=== PATIENT | female | born 1950 | race Caucasian/White ===

== ENCOUNTER → 2020-12-13 09:50 | Outpatient (BNVA) | payer MEDICARE, MEDICAID, SELFPAY | PROVIDERS: PCP Family Medicine; Visit Provider Family Medicine | DX: I10 Essential (primary) hypertension (principal); Z86.39 Personal history of other endocrine, nutritional and metabolic disease; N18.30 Chronic kidney disease, stage 3 unspecified | CPT/HCPCS: 80053; 80061; 82043; 82306; 85025 ==

== ENCOUNTER → 2021-02-04 15:00 | Outpatient (BNVA) | payer MEDICARE, MEDICAID, SELFPAY | PROVIDERS: PCP Family Medicine; Visit Provider Nurse Practitioner Family | DX: Z20.822 Contact with and (suspected) exposure to COVID-19 (principal); J06.9 Acute upper respiratory infection, unspecified | CPT/HCPCS: 87426 ==

== ENCOUNTER 2021-02-07 08:59 | Inpatient (IN) | payer MEDICARE, MEDICAID, SELFPAY ==
[2021-02-07] VITALS (19 sets, daily range): BP systolic 115–172; BP diastolic 60–94; PULSE 20–109; RESP 16–87; TEMP 36.6–38.3; O2SAT 88–92; BMI 45.1
--- NOTE | 2021-02-07 09:04 | ECG_ITS ---
[facility] Test Date: 2021-02-07 Pat Name: Modesta Medel Department: Room: Gender: Female Curatorial Assistant: : 1950 Requested By: January Perez Order Number: [id number] Reading MD: MABEL DRAKE Measurements Intervals [place] Rate: 108 P: 41 OR: 137 QRS: 44 QRSD: 65 T: 38 QT: 317 QTc: 425 Interpretive Statements SINUS TACHYCARDIA LOW QRS VOLTAGE IN PRECORDIAL LEADS [QRS DEFLECTION < 1.0 mV IN CHEST LEADS] ABNORMAL RHYTHM ECG No previous ECG available for comparison Electronically Signed On 02-07-2021 22:20:33 CDT by MABEL DRAKE [id number]
--- NOTE | 2021-02-07 09:06 | W.ED.GENADLT ---
HPI - General Adult General: Chief complaint: ER Hold Stated complaint: COVID, SOB Time Seen by Provider: 02/07/21 09:02 History of Present Illness: HPI narrative: CC: Shortness of breath, fever and generalized weakness HPI: This is a 70 yo full-code patient w/ hx of HTN, COPD BIBA for moderate respiratory distress at home x 5 days. Symptoms x 5days and patient was diagnosed with covid now progressively worsening symptoms. Denies chest pain, N/V, diaphoresis, exertional chest pain, GI or other complaints. Denies any recent surgery/immobilization/travel, or hematemesis or hx of VTE in the past. En route, rescue placed on 15L NRB after she was found to have an O2 sat of 79% on RA. Patient improved to 90 on 15L NRB. Patient is speaking full sentence. Febrile en route to 100.9. Patient received decadron 6mg en route. Onset: 5 days ago Duration: ongoing for the last 5 days Location: home Severity: moderate/severe Review of Systems Narrative: Constitutional: +subjective fever, +generalized weakness HEENT: No vision changes CV: No chest pain, no palpitations PULM: +cough, +dyspnea. GI: No abdominal pain, no N/V/D. : No dysuria MSKEL: No muscle pain SKIN: No new rashes, no lesions. NEURO: No headache, no focal weakness. HEME: No visible bruises PSYCH: Normal mood PFSH ED PFSH: Medical History (Updated 02/07/21 @ 12:27 by Guanaco Zamudio MD) Arthritis Chronic back pain CKD (chronic kidney disease), stage III COPD (chronic obstructive pulmonary disease) Essential hypertension GERD (gastroesophageal reflux disease) Hyperlipidemia MAURY (obstructive sleep apnea) Seasonal allergies Shoulder pain right Surgical History (Updated 02/07/21 @ 12:23 by Guanaco Zamudio MD) H/O: hysterectomy Partial History of back surgery History of cataract surgery Family History Other Cancer Hypertension MS (multiple sclerosis) Social History Smoking and tobacco status: never smoked Alcohol intake: never Physical Exam Narrative: EXAM NARRATIVE: Head: Atraumatic Eyes: PERRL, conjunctiva without injection ENT: Dry membrane moist NECK: Supple without lymphadenopathy LUNGS: +Coarse lung sounds b/l, no rhonchi and crackles throughout the lung rosales, speaknig full sentence CV: Sinus tachycarida ABDOMEN: Soft, nontender in all quadrants, no guarding or rebound tenderness EXTREMITY: Normal ROM SKIN: No rash or erythema NEURO: Awake and alert. No focal motor deficits. PSYCH: Normal mood and affect. Course Vital Signs: Vital signs: Vital Signs Temperature 98.5 F 02/08/21 04:00 Pulse Rate 77 02/08/21 06:00 Respiratory Rate 24 H 02/08/21 04:00 Blood Pressure 126/67 02/08/21 04:00 Pulse Oximetry 87 L 02/08/21 04:00 MDM - General Adult MDM Narrative: Medical decision making narrative: [70]yo patient w/ hx of COVID PNA, HTN, COPD BIBA for respiratory distress. On arrival patient is satting at 90% on 15L NRB with mild increased work of breathing, coarse breath sounds in lung rosales. Patient received 6mg of decadron en route. Based on history, exam and findings, presentation most consistent with moderate/severe covid PNA requiring increasing oxygen support. Low suspicion for PNA, ACS, tamponade, CHF, aortic dissection. EKG: No signs of STEMI and no evidence of Brugada?s sign, delta wave, epsilon wave, significantly prolonged QTc, or malignant arrhythmia as source of exacerbation. Workup today: ECG, CBC, BMP, Troponin, BNP, CXR, covid antigen and PCR, COVID labs, ABG Intervention: Tylenol 1gram, PO challenge, serial reassessment, oxygen, remdesivir EKG showing regular sinus tachycardia at 108. Normal axis. No ST elevations/depressions to suggest coronary occlusion. Normal CT, QRS, QT intervals. [9:00] On arrival given O2 sat, patient was placed on high flow. HDS, AAOx3 and mentating without issues. The patient is now more comfortable on high flow compared to prior without any signs of increasing fatigue. At this point, a decision was made to admit patient to stepdown covid unit for close observation. Patient agrees with plan. Disposition: Admission for serial observation Lab Data: Labs: Lab Results 02/07/21 02/07/21 02/07/21 Range/Units 09:22 09:22 09:22 WBC 7.2 (4.0-10.0) 10^3/ uL RBC 5.05 (4.1-5.3) 10^6/u L Hgb 14.2 (11.5-15.3) g/dL Hct 42.2 (37.0-47.0) % MCV 83.6 (81-99) fl MCH 28.1 (28.0-34.0) pg MCHC 33.6 (30.0-36.0) g/dL RDW 14.3 (12.1-15.1) % Plt Count 176 (130-400) 10^3/c mm MPV 10.4 (7.4-10.4) fL Neut % (Auto) 65.3 % Lymph % (Auto) 23.0 % Villalba % (Auto) 9.3 % Eos % (Auto) 0.0 % Baso % (Auto) 0.3 % Neut # (Auto) 4.72 (1.8-7.7) 10^3/u L Lymph # (Auto) 1.7 (0.8-4.8) 10^3/u L Villalba # (Auto) 0.7 (0.2-0.9) 10^3/u L Eos # (Auto) 0.0 (0.0-0.8) 10^3/u L Baso # (Auto) 0.0 (0.0-0.1) 10^3/u L Nucleated RBC % (a uto) 0 % Nucleated RBCs # 0.0 /100WBC D-Dimer 1.12 H (0-0.59) ug/mIFE U Sodium 130 L (136-145) mmol/L Potassium 3.9 (3.5-5.1) mmol/L Chloride 91 L (98-107) mmol/L Carbon Dioxide 26 (22-29) mmol/L Anion Gap 16.9 (5-19) BUN 21 (8-23) mg/dL Creatinine 1.2 H (0.5-0.9) mg/dL GFR Calculation 44.7 L (90-130) mL/min Glucose 104 (65-115) mg/dL Calculated Osmolal ity 273 L (285-295) mOsm/k g Lactic Acid Calcium 7.8 L (8.5-10.5) mg/dL Magnesium 2.2 (1.7-2.3) mg/dL Ferritin 1294 H (15-150) ng/mL Total Bilirubin 0.6 (0.15-1.2) mg/dL AST 146 H (0-32) U/L ALT 55 H (0-33) U/L Alkaline Phosphata se 166 H (35-105) IU/L Lactate Dehydrogen ase 690 H (135-214) U/L Creatine Kinase 1484 H* (26-192) U/L Troponin T Gen 5 n g/L (0-10) ng/L C-Reactive Protein 90.4 H (0.0-4.9) mg/L NT-Pro-B Natriuret Pep 366 H (0-125) pg/mL Total Protein 6.7 (6.6-8.7) g/dL Albumin 3.8 (3.5-5.2) g/dL Globulin 2.9 (1.3-4.6) g/dL Procalcitonin 0.25 (0-0.5) ng/mL Urine Color (Yellow) Urine Appearance (CLEAR) Urine pH (5-7) Ur Specific Gravit y (1.005-1.030) Urine Protein (Negative) Urine Glucose (UA) (Normal) Urine Ketones (Negative) Urine Blood (Negative) Urine Nitrate (Negative) Urine Bilirubin (Negative) Urine Urobilinogen (Negative) mg/dL Ur Leukocyte Carmella ase (Negative) Urine RBC (0-2) /hpf Urine WBC (0-5) /hpf Ur Squamous Epith Cells (0-5) /hpf Amorphous Sediment Urine Bacteria (NONE) /hpf SARS-CoV-2 Ag (Rap id) (Negative) 02/07/21 02/07/21 02/07/21 Range/Units 09:22 09:22 10:03 WBC (4.0-10.0) 10^3/ uL RBC (4.1-5.3) 10^6/u L Hgb (11.5-15.3) g/dL Hct (37.0-47.0) % MCV (81-99) fl MCH (28.0-34.0) pg MCHC (30.0-36.0) g/dL RDW (12.1-15.1) % Plt Count (130-400) 10^3/c mm MPV (7.4-10.4) fL Neut % (Auto) % Lymph % (Auto) % Villalba % (Auto) % Eos % (Auto) % Baso % (Auto) % Neut # (Auto) (1.8-7.7) 10^3/u L Lymph # (Auto) (0.8-4.8) 10^3/u L Villalba # (Auto) (0.2-0.9) 10^3/u L Eos # (Auto) (0.0-0.8) 10^3/u L Baso # (Auto) (0.0-0.1) 10^3/u L Nucleated RBC % (a uto) % Nucleated RBCs # /100WBC D-Dimer (0-0.59) ug/mIFE U Sodium (136-145) mmol/L Potassium (3.5-5.1) mmol/L Chloride (98-107) mmol/L Carbon Dioxide (22-29) mmol/L Anion Gap (5-19) BUN (8-23) mg/dL Creatinine (0.5-0.9) mg/dL GFR Calculation (90-130) mL/min Glucose (65-115) mg/dL Calculated Osmolal ity (285-295) mOsm/k g Lactic Acid Calcium (8.5-10.5) mg/dL Magnesium (1.7-2.3) mg/dL Ferritin (15-150) ng/mL Total Bilirubin (0.15-1.2) mg/dL AST (0-32) U/L ALT (0-33) U/L Alkaline Phosphata se (35-105) IU/L Lactate Dehydrogen ase (135-214) U/L Creatine Kinase (26-192) U/L Troponin T Gen 5 n g/L 16 H (0-10) ng/L C-Reactive Protein (0.0-4.9) mg/L NT-Pro-B Natriuret Pep (0-125) pg/mL Total Protein (6.6-8.7) g/dL Albumin (3.5-5.2) g/dL Globulin (1.3-4.6) g/dL Procalcitonin (0-0.5) ng/mL Urine Color Yellow (Yellow) Urine Appearance Sl hazy (CLEAR) Urine pH 5 (5-7) Ur Specific Gravit y 1.015 (1.005-1.030) Urine Protein Neg (Negative) Urine Glucose (UA) Norm (Normal) Urine Ketones Negative (Negative) Urine Blood Neg (Negative) Urine Nitrate Negative (Negative) Urine Bilirubin Neg (Negative) Urine Urobilinogen Norm (Negative) mg/dL Ur Leukocyte Carmella ase Negative (Negative) Urine RBC None (0-2) /hpf Urine WBC 0-4 H (0-5) /hpf Ur Squamous Epith Cells 5-10 H (0-5) /hpf Amorphous Sediment Not Reportable Urine Bacteria Trace (NONE) /hpf SARS-CoV-2 Ag (Rap id) Positive H (Negative) 02/07/21 Range/Units 10:10 WBC (4.0-10.0) 10^3/ uL RBC (4.1-5.3) 10^6/u L Hgb (11.5-15.3) g/dL Hct (37.0-47.0) % MCV (81-99) fl MCH (28.0-34.0) pg MCHC (30.0-36.0) g/dL RDW (12.1-15.1) % Plt Count (130-400) 10^3/c mm MPV (7.4-10.4) fL Neut % (Auto) % Lymph % (Auto) % Villalba % (Auto) % Eos % (Auto) % Baso % (Auto) % Neut # (Auto) (1.8-7.7) 10^3/u L Lymph # (Auto) (0.8-4.8) 10^3/u L Villalba # (Auto) (0.2-0.9) 10^3/u L Eos # (Auto) (0.0-0.8) 10^3/u L Baso # (Auto) (0.0-0.1) 10^3/u L Nucleated RBC % (a uto) % Nucleated RBCs # /100WBC D-Dimer (0-0.59) ug/mIFE U Sodium (136-145) mmol/L Potassium (3.5-5.1) mmol/L Chloride (98-107) mmol/L Carbon Dioxide (22-29) mmol/L Anion Gap (5-19) BUN (8-23) mg/dL Creatinine (0.5-0.9) mg/dL GFR Calculation (90-130) mL/min Glucose (65-115) mg/dL Calculated Osmolal ity (285-295) mOsm/k g Lactic Acid Cancelled Calcium (8.5-10.5) mg/dL Magnesium (1.7-2.3) mg/dL Ferritin (15-150) ng/mL Total Bilirubin (0.15-1.2) mg/dL AST (0-32) U/L ALT (0-33) U/L Alkaline Phosphata se (35-105) IU/L Lactate Dehydrogen ase (135-214) U/L Creatine Kinase (26-192) U/L Troponin T Gen 5 n g/L (0-10) ng/L C-Reactive Protein (0.0-4.9) mg/L NT-Pro-B Natriuret Pep (0-125) pg/mL Total Protein (6.6-8.7) g/dL Albumin (3.5-5.2) g/dL Globulin (1.3-4.6) g/dL Procalcitonin (0-0.5) ng/mL Urine Color (Yellow) Urine Appearance (CLEAR) Urine pH (5-7) Ur Specific Gravit y (1.005-1.030) Urine Protein (Negative) Urine Glucose (UA) (Normal) Urine Ketones (Negative) Urine Blood (Negative) Urine Nitrate (Negative) Urine Bilirubin (Negative) Urine Urobilinogen (Negative) mg/dL Ur Leukocyte Carmella ase (Negative) Urine RBC (0-2) /hpf Urine WBC (0-5) /hpf Ur Squamous Epith Cells (0-5) /hpf Amorphous Sediment Urine Bacteria (NONE) /hpf SARS-CoV-2 Ag (Rap id) (Negative) Discharge Plan Discharge Patient Disposition: Admitted As Inpatient Admit Provider: Guanaco Zamudio Coding Level of Care Code ED Pupil Personnel Services Director for Nate De La Torre
[2021-02-07] MEDS: lactated ringers 1,000 ML 150 ML IV (09:14)
[2021-02-07] MEDS: acetaminophen 500 mg Tablet 1000 MG PO (09:14)
[2021-02-07 09:30] LABS: Basophils % 0.3 %; Hematocrit 42.2 % (37.0-47.0); Hemoglobin 14.2 g/dL (11.5-15.3); Lymphocytes # 1.7 10^3/uL (0.8-4.8); Mean Corpuscular HGB Conc 33.6 g/dL (30.0-36.0); Mean Corpuscular Hemoglobin 28.1 pg (28.0-34.0); Mean Corpuscular Volume 83.6 fl (81-99); Mean Platelet Volume 10.4 fL (7.4-10.4); Monocytes # 0.7 10^3/uL (0.2-0.9); Monocytes % 9.3 %; Neutrophils # 4.72 10^3/uL (1.8-7.7); Neutrophils % 65.3 %; Nucleated Red Blood Cells % 0 %; Platelet Count 176 10^3/cmm (130-400); Red Blood Count 5.05 10^6/uL (4.1-5.3); Red Cell Distribution Width 14.3 % (12.1-15.1); White Blood Count 7.2 10^3/uL (4.0-10.0)
[2021-02-07 09:49] LABS: D Dimer 1.12 ug/mIFEU (0-0.59)
[2021-02-07 09:53] LABS: SARS Covid-2 Antigen Positive (Negative)
[2021-02-07 09:59] LABS: Troponin T (5th) Once 16 ng/L (0-10)
[2021-02-07 10:00] LABS: NT Pro B Type Natriuretic Pept 366 pg/mL (0-125); Procalcitonin 0.25 ng/mL (0-0.5)
[2021-02-07 10:12] LABS: Alanine Aminotransferase 55 U/L (0-33); Albumin Level 3.8 g/dL (3.5-5.2); Alkaline Phosphatase 166 IU/L (35-105); Anion Gap 16.9 (5-19); Aspartate Amino Transferase 146 U/L (0-32); Blood Urea Nitrogen 21 mg/dL (8-23); C Reactive Protein 90.4 mg/L (0.0-4.9); Calcium 7.8 mg/dL (8.5-10.5); Carbon Dioxide 26 mmol/L (22-29); Chloride 91 mmol/L (98-107); Globulin 2.9 g/dL (1.3-4.6); Glomerular Filtration Rate 44.7 mL/min (90-130); Glucose 104 mg/dL (65-115); Lactate Dehydrogenase 690 U/L (135-214); Magnesium 2.2 mg/dL (1.7-2.3); Osmolality Calculated 273 mOsm/kg (285-295); Potassium 3.9 mmol/L (3.5-5.1); Sodium 130 mmol/L (136-145); Total Bilirubin 0.6 mg/dL (0.15-1.2); Total Protein 6.7 g/dL (6.6-8.7)
[2021-02-07 10:17] LABS: Creatine Phosphokinase 1484 U/L (26-192)
[2021-02-07 10:25] LABS: Ferritin 1294 ng/mL (15-150)
[2021-02-07 10:42] LABS: Bilirubin Urine Neg (Negative); Blood Urine Neg (Negative); Glucose Urine UA Norm (Normal); Ketones Urine Negative (Negative); Leukocyte Esterase Urine Negative (Negative); Nitrate Urine Negative (Negative); Protein Urine Neg (Negative); Specific Gravity, Urine 1.015 (1.005-1.030); Urine Appearance SL Hazy (CLEAR); Urine Color Yellow (Yellow); Urobilinogen Urine Norm (Negative); WBC Urine 0-4 /hpf (0-5); pH Urine 5 (5-7)
[2021-02-07 10:43] LABS: Add Urine Culture? No; Bacteria Urine TRACE /hpf
[2021-02-07] MEDS: lactated ringers 1,000 ML 999 ML IV (10:49)
[2021-02-07 11:12] LABS: Lactic Sepsis W/Reflex 1.6 mmol/L (0.5-2.2)
--- NOTE | 2021-02-07 11:21 | PC.PHAR ---
pt states she takes care of her own medications-pt states she hasnt been taking anything otc -pt states she only takes the medications entered
[2021-02-07] MEDS: dexamethasone 10 mg/mL INJ 6 MG IVP (11:30)
--- NOTE | 2021-02-07 12:20 | P.HP_ITS ---
Providers/Chief Complaint Primary Care Provider: Jonna Emery DO Chief Complaint: COVID, SOB History of Present Illness Modesta Medel is a 70 year old female who presented to the emergency department not feeling well for quite some time. She really cannot pin this down but did get a Covid test, a rapid on February 04 that was positive. She states she has had anorexia, fever, chills, shortness of breath, persistent cough. Symptoms culminated today where she had to come to the emergency department secondary to severe shortness of breath. She has had no chest discomfort. No vomiting. A family member has had Covid recently. Review of Systems General: Reports: 10 or more systems reviewed and unremarkable except in HPI and below Const: Reports: fever(s), chills, body aches and fatigue Eyes: Denies: change in vision ENMT: Denies: throat pain Card: Denies: chest pain Resp: Reports: dyspnea GI: Reports: nausea; Denies: abdominal pain or vomiting : Denies: flank pain Musc: Denies: neck pain Skin/Breast: Denies: rash Neuro: Denies: headache(s) Psych: Denies: anxiety Endo: Denies: polyuria Nils/Lymph: Denies: easy bruising All/Imm: Denies: urticaria Medications/Allergies Home Medications Medication Instructions Recorded Confirmed Last Taken Type fluticasone propionate 50 1 spray INTRANASAL BID 90 Days #48 12/12/20 02/07/21 02/06/21 Rx mcg/actuation nasal g spray,suspension Norvasc 10 mg PO QAM 02/07/21 02/07/21 02/06/21 History Singulair 10 mg PO BEDTIME 02/07/21 02/07/21 02/06/21 History albuterol sulfate 2 puff INHALATION Q6H PRN 02/07/21 02/07/21 Unknown History atorvastatin 20 mg PO BEDTIME 02/07/21 02/07/21 02/06/21 History famotidine 20 mg PO QAM 02/07/21 02/07/21 02/06/21 History losartan 100 mg PO QAM 02/07/21 02/07/21 02/06/21 History triamcinolone acetonide 1 applic TOPICAL DAILY PRN 02/07/21 02/07/21 Unknown History Allergies Allergy/AdvReac Type Severity Reaction Status Date / Time carbamazepine [From Tegretol] AdvReac Mild twitches Verified 02/07/21 11:22 Sulfa (Sulfonamide AdvReac Mild made sore Verified 02/07/21 11:22 Antibiotics) worse PFSH Acute PFSH: Medical History (Updated 02/07/21 @ 12:27 by Guanaco Zamudio MD) Arthritis Chronic back pain CKD (chronic kidney disease), stage III COPD (chronic obstructive pulmonary disease) Essential hypertension GERD (gastroesophageal reflux disease) Hyperlipidemia MAURY (obstructive sleep apnea) Seasonal allergies Shoulder pain right Surgical History (Updated 02/07/21 @ 12:23 by Guanaco Zamudio MD) H/O: hysterectomy Partial History of back surgery History of cataract surgery Family History Other Cancer Hypertension MS (multiple sclerosis) Social History Smoking and tobacco status: never smoked Alcohol intake: never Vitals/I&O/Wt Last Vital Signs Temp 100.9 F H 02/07/21 08:59 Pulse 94 02/07/21 11:09 Resp 22 H 02/07/21 11:09 BP 115/60 02/07/21 10:05 Pulse Ox 92 02/07/21 11:09 Weight last 48 hrs Weight 127.006 kg Physical Exam Narrative: EXAM NARRATIVE: General exam is an obese-female, with mild respiratory distress on high flow oxygen with an FiO2 of 85%. HEENT: Atraumatic normocephalic. Pupils equally round. Oropharynx clear. Neck is supple no lymphadenopathy or thyromegaly Cardiovascular regular rate and rhythm, no murmur Lungs coarse breath sounds bilaterally Abdomen is soft, obese. No obvious organomegaly demonstrates Bajwa Extremities no cyanosis clubbing or edema, cap refill brisk Skin no rash Neuro no obvious focal deficits Urinary Catheter Management^: Bajwa: Cath Placed During This Visit: yes Urinary Catheter Date of Insertion: 02/07/21 Urinary Catheter Time of Insertion: 10:07 Data : 02/07/21 09:22 02/07/21 09:22 Other data: Urinalysis negative Rapid Covid positive CK 1484 Troponin XVI CRP 90 BNP 366 LFTs slightly elevated with AST of 146, ALT 55, alk phos 166 LDH 690 Ferritin 1294 Calcium 7.8 Dimer 1.12 EKG demonstrates sinus tachycardia rate of 108, no acute changes Chest x-ray is pending A&P Assessment and plan (1) Pneumonia due to COVID-19 virus: Admission to Covid unit High risk for decompensation. Follow closely Remdesivir Dexamethasone 6 mg IV every 24 hours Dose of Actemra today Pulmonary toilet Incentive spirometry High flow oxygen, wean as tolerated Procalcitonin level is normal. No evidence for bacterial pneumonia. Rocephin and azithromycin empirically Check MRSA PCR, bacterial antigens Blood cultures Await chest x-ray Status: Acute (2) Acute and chronic respiratory failure with hypoxia: Secondary to COVID-19 pneumonia Status: Acute (3) COPD (chronic obstructive pulmonary disease): No evidence of exacerbation Status: Chronic (4) Rhabdomyolysis: Not a candidate for significant fluids Discontinue statin Check CK tomorrow Status: Acute Additional A&P Information Hypertension. Continue home medications Multiple other medical problems as outlined in past medical history Full code. She would want intubated should she worsen Lovenox for DVT prophylaxis Attestations Medical Necessity Statement*: Need greater than 2 midnight stay for evaluation and treatment of severe COVID-19 disease and respiratory failure consistent with pneumonia Time Spent in Patient Care: Greater than 35 minutes Coding Level of Care Code Acute Utility Locator for elsa Fwmario Diagnoses Pneumonia due to COVID-19 virus U07.1; J12.82 Acute and chronic respiratory failure with hypoxia J96.21 COPD (chronic obstructive pulmonary disease) J44.9 Rhabdomyolysis M62.82
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
[2021-02-07] MEDS: remdesivir 200 MG in sodium chloride 0.9% (100 ml) 100 ML 100 MG IV (15:20)
--- NOTE | 2021-02-07 16:27 | PC.NURSE ---
patient to room at this time from ED. A/Ox3. rr even and unlabored. respiratory to bedside. patient call light in reach.
[2021-02-07] MEDS: enoxaparin 40 mg/0.4 mL Syringe SUBCUT (17:02)
[2021-02-07] MEDS: fluticasone nasal spray 16gm Btl 1 SPRAY INTRANASAL (17:03)
--- NOTE | 2021-02-07 17:17 | PC.RESP ---
RT Shift Note Frequent safety and respiratory rounds continue. Orders completed as indicated. Patient monitored pre and post treatments throughout shift. Patient tolerated treatments appropriately. Condition did not change. Patient and/or loan servicing representative educated on respiratory treatment and medications. Patient and/or loan servicing representative verbalized understanding. Will continue to monitor patient progress.
[2021-02-07] MEDS: cefTRIAXone 1,000 MG in sodium chloride 0.9% (plus) 50 ML 100 MG IV (20:34)
[2021-02-07] MEDS: azithromycin 500 MG in sodium chloride 0.9% 250 ML 250 MG IV (20:35)
[2021-02-07] MEDS: montelukast sodium 10 mg Tablet PO (20:35)
[2021-02-07] MEDS: ipratropium-albuterol 3 mL Neb INHALATION (21:20)
[2021-02-07] MEDS: FUROsemide 10 mg/mL SDV 2mL 20 MG IVP (22:19)
[2021-02-07] MEDS: ALPRAZolam 0.5 mg Tablet PO (23:38)
[2021-02-08] VITALS (120 sets, daily range): BP systolic 88–153; BP diastolic 42–70; PULSE 59–98; RESP 16–31; TEMP 36.6–36.9; O2SAT 85–100
--- NOTE | 2021-02-08 | US_ITS ---
WS: [id number] ULTRASOUND SOFT TISSUES RIGHT anterior abdominal wall. HISTORY: ABD PAIN AND LUMP COMPARISON: None available. TECHNIQUE: 2-D and color Doppler imaging is submitted. Hypoechoic elongated mass with variable echogenicity along the RIGHT anterior abdominal wall correspo nds to the palpable abnormality. This is an ovoid mass extending over a length of 14 cm x 7.9 x 4.1 c m. No increased vascularity. This is most likely an abdominal wall hematoma. Mild posterior displacem ent and mass effect upon the musculature. Margins are marked with a permanent marker in order to eval uate for increase in size of the hematoma. This is asymmetric to the LEFT abdominal wall. US/US soft tissue/extremity [id number] IMPRESSION: Large RIGHT lateral abdominal wall hematoma measures 14.0 x 7.9 x 4.1 cm. Dunia ns of the hematoma are marked in order to evaluate clinically for increase in s ize.
[2021-02-08] MEDS: ipratropium-albuterol 3 mL Neb INHALATION ×4 (02:35→20:44)
--- NOTE | 2021-02-08 03:06 | XRR_ITS ---
PROCEDURE INFORMATION: Exam: XR Chest Exam date and time: 02/08/2021 3:06 AM Age: 70 years old Clinical indication: Chest wall pain; Patient HX: Sudden onset of severe RT anterior chest wall/ruq pain. Covid +. ; Additional info: Acute ruq pain TECHNIQUE: Imaging protocol: XR of the chest. Views: 1 view. COMPARISON: CR XR chest 1V portable [id number] 02/07/2021 12:34 PM FINDINGS: Lungs: Increased moderate to severe right upper lobe pneumonia with mild right basilar pneumonia. Continued moderate to severe left-sided pneumonia. Pleural spaces: Unremarkable. No pleural effusion. No pneumothorax. Heart/Mediastinum: Unremarkable. No cardiomegaly. Bones/joints: Mild dextroscoliosis. XR/XR chest 1V portable [id number] IMPRESSION: 1. Increased moderate to severe right upper lobe pneumonia with mild right basilar pneumonia. 2. Continued moderate to severe left-sided pneumonia.
[2021-02-08] MEDS: HYDROmorphone 1 mg/mL INJ 1 mL IVP (03:14)
--- NOTE | 2021-02-08 04:15 | PC.NURSE ---
Addendum entered by Yenifer Jett RN 02/08/21 08:13: Chest xray was negative for any signs of perforation. Abdominal ultrasound was performed and patient was then transfered to ICU bed 6 due to being maxed out on BIPAP and decreasing oxygen saturation. Patient continued to have increasing pain in the RUQ. Report was given to ICU day shift nurse. Original Note: Shift Note Frequent safety and comfort rounds continue. Pt began to report acute sharp pain in RUQ. RUQ was firm and tender to touch. Dr. Gonzalez notified and a stat chest xray, pain medication, and routine ultrasound were ordered. Orders and/or nursing care completed as indicated. Patient monitored for response to intervention and treatment(s). Education provided includes dilaudid. Patient and/or sales training representative needs reinforcement. Will continue to monitor.
--- NOTE | 2021-02-08 05:06 | US_ITS ---
WS: [id number] RIGHT UPPER QUADRANT ULTRASOUND HISTORY: US Right upper quadrant for cholecystitis COMPARISON: None available. Liver: 16.5 cm in length. Mildly enlarged liver. Moderate coarse echotexture from hepatic steatosis. Due to the attenuation the entire liver is not very well visualized. Cannot exclude masses. No duct d ilatation. Gallbladder: Normally distended gallbladder with no stones or wall thickening. CBD: 0.4 cm Pancreas: Not well visualized. Right kidney: 10.1 cm in length. Normal size and echogenicity. No hydronephrosis or mass. Aorta and IVC: Not visualized. No ascites. US/US abdomen limited [id number] IMPRESSION: 1. Technically very limited evaluation of the RIGHT upper quadrant. 2. No abnormality noted within the gallbladder. 3. Moderate hepatic steatosis and mildly enlarged liver.
[2021-02-08] MEDS: morphine 4 mg/mL SDV 1 mL 2 MG IVP (05:29)
[2021-02-08] MEDS: FUROsemide 10 mg/mL SDV 4mL 40 MG IVP (08:03)
[2021-02-08] MEDS: dexamethasone 10 mg/mL INJ 6 MG IVP (08:03)
[2021-02-08] MEDS: dexmedetomidine 400 MCG in sodium chloride 0.9% (100 ml) 100 ML IV ×2 (08:13→11:27)
[2021-02-08 08:28] LABS: Alanine Aminotransferase 48 U/L (0-33); Albumin Level 3.1 g/dL (3.5-5.2); Alkaline Phosphatase 135 IU/L (35-105); Anion Gap 17.2 (5-19); Aspartate Amino Transferase 103 U/L (0-32); Blood Urea Nitrogen 29 mg/dL (8-23); C Reactive Protein 65.9 mg/L (0.0-4.9); Calcium 7.8 mg/dL (8.5-10.5); Carbon Dioxide 25 mmol/L (22-29); Chloride 96 mmol/L (98-107); Globulin 2.9 g/dL (1.3-4.6); Glomerular Filtration Rate 49.4 mL/min (90-130); Glucose 127 mg/dL (65-115); Magnesium 2.2 mg/dL (1.7-2.3); Osmolality Calculated 285 mOsm/kg (285-295); Potassium 4.2 mmol/L (3.5-5.1); Sodium 134 mmol/L (136-145); Total Bilirubin 0.5 mg/dL (0.15-1.2)
[2021-02-08 08:33] LABS: Creatine Phosphokinase 649 U/L (26-192)
--- NOTE | 2021-02-08 08:36 | XR_ITS ---
WS: [id number] PORTABLE CHEST HISTORY: Post-intubation COMPARISON: 02/08/2021 and 02/07/2021 Nasogastric and endotracheal tube have been placed since the prior study and are in good position. RI GHT central line with tip in the distal SVC. Continued bilateral pulmonary opacifications, opacifications involve all lobes. No pneumothorax or lo bar collapse. High density foreign body objects projects over the LEFT lower thorax. Cardiac size: Normal. Mediastinum/Aorta: Normal mediastinum. No osseous abnormality seen. XR/XR chest 1V portable [id number] IMPRESSION: 1. Satisfactory placement of the nasogastric and endotracheal tubes. 2. RIGHT central line in good position. 3. Continued, unchanged bilateral pulmonary opacifications from Covid 19 pneum onia.
[2021-02-08 08:46] LABS: Basophils % 0.2 %; Hematocrit 39.2 % (37.0-47.0); Lymphocytes # 0.9 10^3/uL (0.8-4.8); Lymphocytes % 14.8 %; Mean Corpuscular HGB Conc 33.2 g/dL (30.0-36.0); Mean Corpuscular Hemoglobin 28.3 pg (28.0-34.0); Mean Corpuscular Volume 85.2 fl (81-99); Mean Platelet Volume 11.5 fL (7.4-10.4); Monocytes # 0.6 10^3/uL (0.2-0.9); Monocytes % 10.8 %; Neutrophils % 72.3 %; Nucleated Red Blood Cells % 0 %; Platelet Count 236 10^3/cmm (130-400); Red Cell Distribution Width 14.3 % (12.1-15.1); White Blood Count 5.8 10^3/uL (4.0-10.0)
[2021-02-08] MEDS: fentaNYL 50 mcg/mL INJ 2mL IVP (08:50)
[2021-02-08] MEDS: midazolam 1 mg/mL INJ 2 mL 4 MG IVP (08:51)
[2021-02-08 08:54] LABS: ABG PCO2 44.4 mmHg (35-45); Arterial Blood Gas Hematocrit 41.6 % (37-47); Base Excess ABG 2.5 mmol/L (-2.0-2.0); Blood Gas Allen Test Pos; Blood Gas Operator Identificat BD; Blood Gas Sample Site Brachial, right; Blood Gas Sample Type Arterial; Carboxyhemoglobin 0.7 %THgb (0.4-20.1); HCO3 ABG 27.7 mmol/L (22-26); HGB O2 Sat 85.8 % (95-100); Ionized Calcium Level - ABG 1.1 mmol/L (1.1-1.4); Methemoglobin 0.8 % (0.4-1.5); Oxygen Device BIPAP; Oxygen Saturation ABG 87.1; PO2 ABG 52.6 mmHg (80.0-100.0); Potassium Level - ABG 4.1 mmol/L (3.5-5.0); Total Hemoglobin 13.6 g/dL (12-16)
[2021-02-08] MEDS: rocuronium 10 mg/mL INJ 5mL 100 MG IV (08:58)
[2021-02-08 09:03] LABS: D Dimer 0.85 ug/mIFEU (0-0.59)
[2021-02-08] MEDS: propofol 1,000 MG/100 ML INJ 19.05 MG IV ×3 (10:00→19:46)
--- NOTE | 2021-02-08 10:20 | P.PCN_ITS ---
Procedure/Consent Time out: Time Out Performed: Yes Consent: Consent for Procedure: Emergency procedure Procedure Narrative: Procedure time: 9:30 AM right Procedure: Central venous access placement Indication:Vasopressors infusion Machine Operator Replanter(s): Ozzy Marquez MD Consent: Emergent Time out called. [place] precautions applied. Site: Right internal Jugular Catheter: 7 Fr, 20 cm, Triple Lumen Sutured at: 17 cm Anesthesia: 5 cc 1% lidocaine without epinephrine Description: Area prepped with chlorhexidine and draped in a universal sterile manner. The vessel anatomy and patency was examined by ultrasound probe which was covered with sterile probe cover. The needle was inserted into the vessel under ultrasound guidance, after venous blood aspirated the guidewire was inserted through the needle and kept in situ while the needle was removed. Placement of guidewire in the vein and in relation to the adjacent artery was verified by ultrasound. Catheter was then advanced over the guidewire after dilation and guidewire successfully removed.The catheter was sutured to the skin and sterile dressing with chlorhexidine patch placed. Number of attempts:1 Dilator applied: 1 number of Dilations: 1 Placement Verified by: Blood draw from all ports and Ultrasound exam and Chest Xray EBL: 5-10 cc Complications: None Ultrasound guidance used:yes Acute Procedures Epistaxis Control: Time out performed: Yes
--- NOTE | 2021-02-08 10:20 | PM.CONSULT ---
Providers/Reason For Consult Consulting Physician/Specialty*: Ozzy Marquez MD / Pulmonary Critical Care Reason for Consult*: Acute hypoxic respiratory failure secondary to ARDS due to COVID-19 pneumonia Requesting Physician: Guanaco Zamudio MD Attending Physician: Guanaco Zamudio MD Primary Care Provider: Jonna Emery DO History of Present Illness History of Present Illness Modesta Medel is a 70 year old female with past medical history COPD, hypertension, CKD stage III, GERD, hyperlipidemia, obstructive sleep apnea, morbid obesity BMI 45, chronic back pain presented to ED on 02/07/2021 with chief complaint of not feeling well and worsening shortness of breath over the last 5 days.-a rapid Covid test on 02/04/2021 was positive. In the ER she was placed on 15 L nonrebreather mask and saturations were up to 90%-gradually she declined and was requiring 100% FiO2 on BiPAP and saturating 88 to 90%. She was admitted to ICU for acute hypoxemic respiratory failure secondary to ARDS due to COVID-19 pneumonia. Pulmonary critical care consulted for increasing FiO2 requirement and patient still saturating 90% on FiO2 100%. Patient appears anxious and started on Precedex drip. ABG obtained today morning 7.4 0/44/52/27/87% on BiPAP FiO2 100%. Decision was made to intubate patient for respiratory support through mechanical ventilator. She was placed on sedation to comply with ventilator. There was a concern for right upper quadrant swelling and abdominal tenderness and her ultrasound examination today morning was limited and did not show any acute pathology. The outside plant technician is to come back again and do complete abdomen ultrasound examination and after ruling out any acute abdominal pathology-plan is to paralyze and prone her. Review of Systems General: Reports: ROS unobtainable due to medical condition and ROS unobtainable due to mental status Meds/Allergies Home Medications and Allergies Home Medications Medication Instructions Recorded Confirmed Last Taken Type fluticasone propionate 50 1 spray INTRANASAL BID 90 Days #48 12/12/20 02/07/21 02/06/21 Rx mcg/actuation nasal g spray,suspension Norvasc 10 mg PO QAM 02/07/21 02/07/21 02/06/21 History Singulair 10 mg PO BEDTIME 02/07/21 02/07/21 02/06/21 History albuterol sulfate 2 puff INHALATION Q6H PRN 02/07/21 02/07/21 Unknown History atorvastatin 20 mg PO BEDTIME 02/07/21 02/07/21 02/06/21 History famotidine 20 mg PO QAM 02/07/21 02/07/21 02/06/21 History losartan 100 mg PO QAM 02/07/21 02/07/21 02/06/21 History triamcinolone acetonide 1 applic TOPICAL DAILY PRN 02/07/21 02/07/21 Unknown History Allergies Allergy/AdvReac Type Severity Reaction Status Date / Time carbamazepine [From Tegretol] AdvReac Mild twitches Verified 02/07/21 11:22 Sulfa (Sulfonamide AdvReac Mild made sore Verified 02/07/21 11:22 Antibiotics) worse Current Medications Current Medications Generic Name Dose Route Start Last Admin Trade Name Freq PRN Reason Stop Dose Admin Albuterol/Ipratropium 3 ml 02/07/21 15:10 02/08/21 02:35 Ipratropium-Albuterol 3 Ml Neb INHALATION 3 ml Q6H RAUL Administration Dexamethasone 6 mg 02/08/21 08:00 02/08/21 08:03 Dexamethasone 10 Mg/Ml Inj IVP 6 mg Q24H RAUL Administration Fluticasone Propionate 1 spray 02/07/21 18:00 02/07/21 17:03 Fluticasone Nasal [place] 16gm Btl INTRANASAL 1 spray BID RAUL Administration Ceftriaxone Sodium 1,000 mg/ 50 mls @ 100 mls/hr 02/07/21 15:10 02/07/21 21:48 Sodium Chloride IV Infused Q24H RAUL Infusion Protocol Azithromycin 500 mg/ Sodium 250 mls @ 250 mls/hr 02/07/21 15:10 02/07/21 21:49 Chloride IV 02/09/21 22:00 Infused Q24H RAUL Infusion Protocol Dexmedetomidine HCl 400 mcg/ 104 mls @ 0 mls/hr 02/08/21 07:15 02/08/21 08:13 Sodium Chloride IV 0.1 mcg/kg/hr .Q0M RAUL 3.3 mls/hr Administration Protocol Per Protocol Montelukast Sodium 10 mg 02/07/21 21:00 02/07/21 20:35 Montelukast Sodium 10 Mg Tablet PO 10 mg BEDTIME RAUL Administration Morphine Sulfate 2 mg 02/08/21 05:09 02/08/21 05:29 Morphine 4 Mg/Ml Sdv 1 Ml IVP 2 mg Q4H PRN Administration SEVERE PAIN PFSH Acute PFSH: Medical History (Updated 02/09/21 @ 09:08 by Ozzy Marquez MD) Arthritis Chronic back pain CKD (chronic kidney disease), stage III COPD (chronic obstructive pulmonary disease) Essential hypertension GERD (gastroesophageal reflux disease) Hyperlipidemia MAURY (obstructive sleep apnea) Seasonal allergies Shoulder pain right Surgical History H/O: hysterectomy Partial History of back surgery History of cataract surgery Family History Other Cancer Hypertension MS (multiple sclerosis) Social History Smoking and tobacco status: never smoked Alcohol intake: never Vitals/I&O/Wt Last Vital Signs Temp 98.5 F 02/08/21 04:00 Pulse 77 02/08/21 06:00 Resp 24 H 02/08/21 04:00 BP 126/67 02/08/21 04:00 Pulse Ox 87 L 02/08/21 04:00 02/07/21 02/08/21 02/08/21 22:59 06:59 14:59 Intake Total 810 / 1525 Output Total 1000 / 1000 800 / 1800 Balance -190 / 525 -800 / -275 Weight last 48 hrs Weight 280 lb Weight 280 lb Physical Exam Narrative: EXAM NARRATIVE: PHYSICAL EXAM: General: Earlier sitting in bed and on BiPAP and anxious, later intubated and sedated HEENT:NCAT, PERRLA, EOMI Neck: Supple Lungs: Bilateral diffuse coarse crackles Heart: s1/s2, RRR Abd: soft, NT, ND, BS + Normoactive Extremities: No edema 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 SKIN: no rash LDA: # CVC: Right internal jugular 02/08/2021 # Bajwa: 02/07/2021 #Intubated: 02/08/2021 Urinary Catheter Management^: Bajwa: Cath Placed During This Visit: yes Reason for Continuing Indwelling Catheter: Accurate Measurement of Urinary Output in Critically Ill Patients Urinary Catheter Date of Insertion: 02/07/21 Urinary Catheter Time of Insertion: 10:07 Data Labs: Other Labs: Laboratory Results WBC 5.8 10^3/uL (4.0- 10.0) 02/08/21 06:50 RBC 4.60 10^6/uL (4.1 -5.3) 02/08/21 06:50 Hgb 12.5 g/dL (11.5-1 5.3) 02/08/21 13:54 Hct 38.0 % (37.0-47.0 ) 02/08/21 13:54 MCV 85.2 fl (81-99) 02/08/21 06:50 MCH 28.3 pg (28.0-34. 0) 02/08/21 06:50 MCHC 33.2 g/dL (30.0-3 6.0) 02/08/21 06:50 RDW 14.3 % (12.1-15.1 ) 02/08/21 06:50 Plt Count 236 10^3/cmm (130 -400) D 02/08/21 06:50 MPV 11.5 fL (7.4-10.4 ) H 02/08/21 06:50 Neut % (Auto) 72.3 % 02/08/21 06:50 Lymph % (Auto) 14.8 % 02/08/21 06:50 [place] % (Auto) 10.8 % 02/08/21 06:50 Eos % (Auto) 0.0 % 02/08/21 06:50 Baso % (Auto) 0.2 % 02/08/21 06:50 Neut # (Auto) 4.20 10^3/uL (1.8 -7.7) 02/08/21 06:50 Lymph # (Auto) 0.9 10^3/uL (0.8- 4.8) 02/08/21 06:50 [place] # (Auto) 0.6 10^3/uL (0.2- 0.9) 02/08/21 06:50 Eos # (Auto) 0.0 10^3/uL (0.0- 0.8) 02/08/21 06:50 Baso # (Auto) 0.0 10^3/uL (0.0- 0.1) 02/08/21 06:50 Nucleated RBC % (a uto) 0 % 02/08/21 06:50 Nucleated RBCs # 0.0 /100WBC 02/08/21 06:50 D-Dimer 0.85 ug/mIFEU (0- 0.59) H 02/08/21 06:50 Specimen Type Arterial 02/08/21 10:50 Sample Site Brachial, right 02/08/21 10:50 ABG pH 7.37 (7.35-7.45) 02/08/21 10:50 ABG pCO2 44.9 mmHg (35-45) 02/08/21 10:50 ABG pO2 67.3 mmHg (80.0-1 00.0) L 02/08/21 10:50 ABG HCO3 26.2 mmol/L (22-2 6) H 02/08/21 10:50 ABG O2 Saturation 87.1 02/08/21 08:42 ABG Base Excess 0.6 mmol/L (-2.0- 2.0) 02/08/21 10:50 Christian Test Pos 02/08/21 10:50 A-a O2 Gradient 79.0 mmHg (5-10) H 02/08/21 08:42 Hematocrit 40.3 % (37-47) 02/08/21 10:50 Hgb O2 Saturation 85.8 % (95-100) L 02/08/21 08:42 Carboxyhemoglobin 0.7 %THgb (0.4-20 .1) 02/08/21 08:42 Methemoglobin 0.8 % (0.4-1.5) 02/08/21 08:42 Total Hemoglobin 13.6 g/dL (12-16) 02/08/21 08:42 Sodium 136.0 mmol/L (131 -143) 02/08/21 08:42 Potassium 4.1 mmol/L (3.5-5 .0) 02/08/21 08:42 Glucose 131.0 mg/dL (70-1 15) H 02/08/21 08:42 Ionized Calcium 1.1 mmol/L (1.1-1 .4) 02/08/21 08:42 O2 Delivery Device Vent 02/08/21 10:50 FiO2 100.0 % 02/08/21 10:50 Tidal Volume 0.37 02/08/21 10:50 PEEP 12.0 cmH20 02/08/21 10:50 Chicken Buyer ID Bd 02/08/21 10:50 Sodium 134 mmol/L (136-1 45) L 02/08/21 06:50 Potassium 4.2 mmol/L (3.5-5 .1) 02/08/21 06:50 Chloride 96 mmol/L (98-107 ) L 02/08/21 06:50 Carbon Dioxide 25 mmol/L (22-29) 02/08/21 06:50 Anion Gap 17.2 (5-19) 02/08/21 06:50 BUN 29 mg/dL (8-23) H 02/08/21 06:50 Creatinine 1.1 mg/dL (0.5-0. 9) H 02/08/21 06:50 GFR Calculation 49.4 mL/min (90-1 30) L 02/08/21 06:50 Glucose 127 mg/dL (65-115 ) H 02/08/21 06:50 Calculated Osmolal ity 285 mOsm/kg (285- 295) 02/08/21 06:50 Lactic Acid 1.6 mmol/L (0.5-2 .2) 02/07/21 10:50 Calcium 7.8 mg/dL (8.5-10 .5) L 02/08/21 06:50 Magnesium 2.2 mg/dL (1.7-2. 3) 02/08/21 06:50 Ferritin 1294 ng/mL (15-15 0) H 02/07/21 09:22 Total Bilirubin 0.5 mg/dL (0.15-1 .2) 02/08/21 06:50 AST 103 U/L (0-32) H 02/08/21 06:50 ALT 48 U/L (0-33) H 02/08/21 06:50 Alkaline Phosphata se 135 IU/L (35-105) H 02/08/21 06:50 Lactate Dehydrogen ase 690 U/L (135-214) H 02/07/21 09:22 Creatine Kinase 649 U/L (26-192) H* 02/08/21 06:50 Troponin T Gen 5 n g/L 16 ng/L (0-10) H 02/07/21 09:22 C-Reactive Protein 65.9 mg/L (0.0-4. 9) H 02/08/21 06:50 NT-Pro-B Natriuret Pep 366 pg/mL (0-125) H 02/07/21 09:22 Total Protein 6.0 g/dL (6.6-8.7 ) L 02/08/21 06:50 Albumin 3.1 g/dL (3.5-5.2 ) L 02/08/21 06:50 Globulin 2.9 g/dL (1.3-4.6 ) 02/08/21 06:50 Procalcitonin 0.25 ng/mL (0-0.5 ) 02/07/21 09:22 Urine Color Yellow (Yellow) 02/07/21 10:03 Urine Appearance Sl hazy (CLEAR) 02/07/21 10:03 Urine pH 5 (5-7) 02/07/21 10:03 Ur Specific Gravit y 1.015 (1.005-1.0 30) 02/07/21 10:03 Urine Protein Neg (Negative) 02/07/21 10:03 Urine Glucose (UA) Norm (Normal) 02/07/21 10:03 Urine Ketones Negative (Negati ve) 02/07/21 10:03 Urine Blood Neg (Negative) 02/07/21 10:03 Urine Nitrate Negative (Negati ve) 02/07/21 10:03 Urine Bilirubin Neg (Negative) 02/07/21 10:03 Urine Urobilinogen Norm mg/dL (Negat esme) 02/07/21 10:03 Ur Leukocyte Carmella ase Negative (Negati ve) 02/07/21 10:03 Urine RBC None /hpf (0-2) 02/07/21 10:03 Urine WBC 0-4 /hpf (0-5) H 02/07/21 10:03 Ur Squamous Epith Cells 5-10 /hpf (0-5) H 02/07/21 10:03 Amorphous Sediment Not Reportable 02/07/21 10:03 Urine Bacteria Trace /hpf (NONE) 02/07/21 10:03 SARS-CoV-2 Ag (Rap id) Positive (Negati ve) H 02/07/21 09:22 Impressions Soft Tissue Ultrasound 02/08/21 00:00 IMPRESSION: Large RIGHT lateral abdominal wall hematoma measures 14.0 x 7.9 x 4.1 cm. Margins of the hematoma are marked in order to evaluate clinically for increase in size. Abdomen Ultrasound 02/08/21 05:06 IMPRESSION: 1. Technically very limited evaluation of the RIGHT upper quadrant. 2. No abnormality noted within the gallbladder. 3. Moderate hepatic steatosis and mildly enlarged liver. Chest X-Ray 02/08/21 08:36 IMPRESSION: 1. Satisfactory placement of the nasogastric and endotracheal tubes. 2. RIGHT central line in good position. 3. Continued, unchanged bilateral pulmonary opacifications from Covid 19 pneumonia. Micro: Micro: Microbiology 02/07/21 13:50 Blood Culture - Pr eliminary Blood [facility] 02/07/21 09:22 Blood Culture - Pr eliminary Blood [facility] A&P Assessment and plan (1) Acute respiratory failure with hypoxia: Status: Acute (2) Acute respiratory distress syndrome (ARDS) due to 2019 novel coronavirus: Status: Acute (3) Pneumonia due to COVID-19 virus: Status: Acute (4) Rhabdomyolysis: Status: Acute Qualifiers: Rhabdomyolysis type: non-traumatic Qualified Code(s): M62.82 - Rhabdomyolysis (5) CKD (chronic kidney disease), stage III: Status: Acute Qualifiers: Chronic kidney disease stage 3 subtype: unspecified whether 3a or 3b Qualified Code(s): N18.30 - Chronic kidney disease, stage 3 unspecified (6) COPD (chronic obstructive pulmonary disease): Status: Chronic Qualifiers: COPD type: unspecified COPD Qualified Code(s): J44.9 - Chronic obstructive pulmonary disease, unspecified (7) Essential hypertension: Status: Chronic (8) GERD (gastroesophageal reflux disease): Status: Chronic Qualifiers: Esophagitis presence: esophagitis presence not specified Qualified Code(s): K21.9 - Gastro-esophageal reflux disease without esophagitis #Acute hypoxic respiratory failure secondary to ARDS due to COVID-19 pneumonia #Has documented history of COPD-patient never smoked-needs PFTs as outpatient -Rapid antigen + 02/04/2021; -Came to ED 02/07/2021- -intubated 02/08/2021-currently sedated and plan is to paralyze & prone later today after ruling out acute abdominal pathology -Monitor saturation and titrate down FiO2 as feasible to keep saturations greater than 90% -Started on remdesivir 02/07/2021 and dexamethasone 6 mg IV push daily 02/07/2021 -S/p 1 dose Actemra 02/07/2021 -On DuoNeb every 6 hours scheduled nebulizations; on Singulair 10 mg at bedtime home medication -Had a fever spike 100.9 overnight, low procalcitonin, MRSA nares negative, blood cultures negative to date -Also on Rocephin and azithromycin-started 02/07/2021 -Monitor for secondary infections and fluid overload #Right upper quadrant abdominal wall tenderness and swelling -Today morning right upper quadrant abdominal sono-limited in evaluation -Plan is to repeat soft tissue abdominal sono later today #CKD stage III #Rhabdomyolysis -Monitor electrolytes and input output -Try to keep net negative to even fluid balance - target K ~ 4 and magnesium > 2 -CK trending down #Deranged LFTs-secondary to Covid pneumonia-monitor and avoid hepatotoxic drugs #Tube feeding-continue Nephro 8 maximum 30 mL/h while supine and hold off and patient is proned #Start on bowel regimen-senna and Colace #Sugars controlled #History of GERD-GI prophylaxis-on famotidine #Full code #Prognosis-guarded #Family-prior to intubation called daughter's phone but son-in-law picked up and notified that patient needs emergent intubation and she is hypoxic on 100% FiO2 on BiPAP. Patient was okay with intubation if needed on the day of admission Recommendations conveyed to hospitalist, RN, RT covering the patient Consult Attestations Medical Necessity Statement: Acute hypoxic respiratory failure secondary to ARDS due to COVID-19 pneumonia in patient with underlying CKD stage III-currently sedated and paralyzed and proned and is requiring mechanical ventilator support Time Spent in Patient Care: Greater than 35 minutes (>than 50% of time spent in counselling and/or direct pt care on unit). Critical Care Time: The high probability of a clinically significant, sudden or life threatening deterioration of the patient's [pulmonary, renal] system(s) required my full and direct attention, intervention and personal management. The critical care time is as shown. This time is in addition to time spent performing any reported procedures but includes the following: [x] Data and vital sign review and interpretation [x] Patient assessment, examination and intervention [x] Documentation [x] Medication orders and management Critical Care Time (min): 90 Coding Level of Care Code New Pt Acute Agriculture Extension Specialist for g Fwd Patient Type New History Comprehensive Exam Comprehensive Medical Decision Making High Complexity Diagnoses Acute respiratory failure with hypoxia J96.01 Acute respiratory distress syndrome (ARDS) due to 2019 novel coronavirus U07.1; J80 Pneumonia due to COVID-19 virus U07.1; J12.82 Rhabdomyolysis M62.82 Rhabdomyolysis type: non-traumatic CKD (chronic kidney disease), stage III N18.30 Chronic kidney disease stage 3 subtype: unspecified whether 3a or 3b COPD (chronic obstructive pulmonary disease) J44.9 COPD type: unspecified COPD Essential hypertension I10 GERD (gastroesophageal reflux disease) K21.9 Esophagitis presence: esophagitis presence not specified Time Spent (min) 90
--- NOTE | 2021-02-08 10:20 | PM.ACPR ---
Procedure/Consent Time out: Time Out Performed: Yes Consent: Consent for Procedure: Emergency procedure Procedure Narrative: Time: 9:15 AM Endotracheal Intubation Procedure Note: Indication for endotracheal intubation: hypoxic respiratory failure due to covid 19 Consent: The patient was in immediate danger, and required the procedure emergently, Sedation: Versed 2 mg, fentanyl 50 MCG, etomidate 15 mg, Paralytic: Rocuronium 100 Equipment: Glidoscope blade 4 View: Grade 1 Cricoid Pressure: No Number of attempts: 1 ETT location confirmed by colorimetric change, fogging of ET tube, bilateral breath sounds, chest x-ray. Ozzy DatarMD Pulm/Critical Care Medicine Acute Procedures Epistaxis Control: Time out performed: Yes
--- NOTE | 2021-02-08 10:55 | PC.NURSE ---
Patient was brought to ICU on 100% BIPAP with sats in mid 80's. Patient was A&Ox4. Right upper quadrent pain was noted and abd was tender to touch and distended. Intubation medications were given and patient was intubated with 8.0 tube and 24 at the lip. FiO2-100%. Bilateral breath sounds were heard and positive color change was noted. OG was placed and xray obtained. Central line placed in right IJ. Family members aware and all questions answered at this time.
[2021-02-08 11:07] LABS: ABG PCO2 44.9 mmHg (35-45); ABG PH Result 7.37 (7.35-7.45); Arterial Blood Gas Hematocrit 40.3 % (37-47); Base Excess ABG 0.6 mmol/L (-2.0-2.0); Blood Gas Allen Test Pos; Blood Gas Operator Identificat BD; Blood Gas Sample Site Brachial, right; Blood Gas Sample Type Arterial; Blood Gas Tidal Volume 0.37; HCO3 ABG 26.2 mmol/L (22-26); Oxygen Device VENT; PO2 ABG 67.3 mmHg (80.0-100.0)
[2021-02-08 14:20] LABS: Hemoglobin 12.5 g/dL (11.5-15.3)
--- NOTE | 2021-02-08 15:17 | PC.NUTR ---
Nutrition Note: PO intake of pt. was 7% of recorded meals since admitted. Per MD notes and orders in EMR, mechanical ventilation started on 02/08. If medically appropriate for patient and if consistent with goal sof care, recommend consideration of TF - Jevity 1.2, starting @ 10 mls/hr, increase by 10 ml/hr q 8 hrs as tolerated until goal rate of 50 ml/hr, with water flushes of 120 ml q 4 hrs. Goal rate of 50 ml/hr will provide 1440 kcals or 83% of calculated calorie needs and 66 grams of protein or 100% of calculated protein needs and 1688 (968 + 720WF) ml H2O.
--- NOTE | 2021-02-08 15:34 | PC.NURSE ---
patients necklace, ear rings and two rings were taken off and placed in bio bag and put in patients purse.
--- NOTE | 2021-02-08 15:37 | P.PN_ITS ---
Subjective Subjective: Interval history: Modesta was struggling on BiPAP this morning, difficulty with coordinating breaths and O2 saturation was not ideal. She was moved to the ICU or pulmonary critical care graciously intubated her and placed a central line. I have visited with her earlier on admission regarding her health care directives and she wanted to be full code with mechanical ventila tion if needed. The above procedure was done emergently. Medications: Reviewed: Yes Vitals/I&O/Wt Last Vital Signs Temp 98.5 F 02/08/21 04:00 Pulse 66 02/08/21 14:45 Resp 19 H 02/08/21 14:48 BP 92/49 02/08/21 14:02 Pulse Ox 90 02/08/21 14:48 02/08/21 02/08/21 02/08/21 06:59 14:59 22:59 Intake Total 126.592 / 126.592 Output Total 800 / 1800 Balance -800 / -275 126.592 / 126.592 Weight last 48 hrs Weight 127.006 kg Weight 127.006 kg Physical Exam Narrative: EXAM NARRATIVE: General exam intubated and sedated HEENT: Endotracheal and orogastric tube noted Neck is supple no lymphadenopathy or thyromegaly Cardiovascular regular rate and rhythm, no murmur Lungs coarse breath sounds bilaterally Abdomen is soft, obese. No obvious organomegaly demonstrates Bajwa Extremities no cyanosis clubbing or edema, cap refill brisk Urinary Catheter Management^: Bajwa: Cath Placed During This Visit: yes Reason for Continuing Indwelling Catheter: Accurate Measurement of Urinary Output in Critically Ill Patients Urinary Catheter Date of Insertion: 02/07/21 Urinary Catheter Time of Insertion: 10:07 Data : 02/08/21 13:54 02/08/21 06:50 Micro: Microbiology 02/07/21 13:50 Blood Culture - Preliminary Blood NEGATIVE TO DATE 02/07/21 09:22 Blood Culture - Preliminary Blood NEGATIVE TO DATE 02/07/21 22:25 MRSA Culture - Final Nose A&P Assessment and plan (1) Pneumonia due to COVID-19 virus: Transferred to ICU. Sedation with fentanyl, propofol. Versed drip if needed. Considering proning. However, abdominal wall hematoma has developed. Hemoglob in appears to be stable. Will attempt to go ahead and prone as oxygenation is not ideal currently. Initiate Nimbex drip. Continue remdesivir Continue dexamethasone 1 dose of Actemra was given February 07 Continue pulmonary toilet Procalcitonin level is normal. No evidence for bacterial pneumonia. Rocephin and azithromycin empirically Awaiting MRSA PCR, bacterial antigens Blood cultures negative to date Norepinephrine as needed for blood pressure support Dimer checked and not significantly elevated at this time. ABG performed on ventilator demonstrates a pH 7.37, PCO2 45, PO2 67 on 12 of PEEP FiO2 100% Status: Acute (2) Acute and chronic respiratory failure with hypoxia: Secondary to COVID-19 pneumonia Status: Acute (3) COPD (chronic obstructive pulmonary disease): No evidence of exacerbation Status: Chronic (4) Rhabdomyolysis: Not a candidate for significant fluids Statin discontinued CK decreasing Status: Acute Additional A&P Information Transaminitis. Consistent with Covid hypertension. Hold blood pressure medication Abdominal wall hematoma. Margins marked. Recheck hemoglobin. Multiple other medical problems as outlined in past medical history Full code. Lovenox for DVT prophylaxis will be held secondary to abdominal wall hematoma. SCDs for DVT prophylaxis. Attestations 2 Medical Necessity Statement*: Needs continued hospital stay secondary to severe COVID-19 pneumonia requiring mechanical ventilation. Critical Care Time: The high probability of a clinically significant, sudden or life threatening deterioration of the patient's [pulmonary, hepatic, hematologic] system(s) required my full and direct attention, intervention and personal management. The critical care time is as shown. This time is in addition to time spent performing any reported procedures but includes the following: [x] Data and vital sign review and interpretation [x] Patient assessment, examination and intervention [x] Documentation [x] Medication orders and management Critical Care Time (min): 43 Coding Level of Care Code Acute Chef Concierge for [facility] Fwd Diagnoses Pneumonia due to COVID-19 virus U07.1; J12.82 Acute and chronic respiratory failure with hypoxia J96.21 COPD (chronic obstructive pulmonary disease) J44.9 Rhabdomyolysis M62.82
--- NOTE | 2021-02-08 15:38 | PC.NUTR ---
Nutrition Note: Pt was NPO upon admission 02/07 and started on mechanical ventilation 02/08. If/when medically appropriate and if in agreement with goals of Pt. care, recommend consideration of TF to optimize nutritional status. Possible protocol: Jevity 1.2 started at 10 ml/hr, increase by 10 ml/hr (as tolerated) q 8 hours until goal rate of 30 ml is reached, with free water flushes of 120 ml q 4 hrs. TF plus Propofol kcal will provide 1368 kcal (86% calculated calorie needs), 40 grams protein (48% calculated protein needs), and 1301 ml fluid.
[2021-02-08] MEDS: remdesivir 100 MG in sodium chloride 0.9% (100 ml) 100 ML IV (16:53)
[2021-02-08] MEDS: cisatracurium 100 MG in sodium chloride 0.9% 50 ML IV (16:53)
--- NOTE | 2021-02-08 18:07 | PC.NURSE ---
Patient placed in the proned position at 1800 this shift. Tolerated well
--- NOTE | 2021-02-08 18:28 | PC.RESP ---
Pulmonary Rehab information sent to patient.
[2021-02-08] MEDS: cefTRIAXone 1,000 MG in sodium chloride 0.9% (plus) 50 ML 100 MG IV (19:47)
--- NOTE | 2021-02-08 20:00 | PC.NURSE ---
The bis was 55, yet the we had reached ventilator synchrony. Train of four was 2/4.
[2021-02-08] MEDS: montelukast sodium 10 mg Tablet PO (20:49)
[2021-02-08] MEDS: azithromycin 500 MG in sodium chloride 0.9% 250 ML 250 MG IV (20:49)
--- NOTE | 2021-02-08 22:00 | PC.NURSE ---
The patient's BIS was 63, yet we have reached ventilator synchrony. TOF was 2/4
[2021-02-09] VITALS (99 sets, daily range): BP systolic 82–160; BP diastolic 49–99; PULSE 55–110; RESP 18; TEMP 34.4–37.1; O2SAT 87–100
[2021-02-09] MEDS: propofol 1,000 MG/100 ML INJ 19.05 MG IV ×2 (01:20→07:32)
[2021-02-09] MEDS: ipratropium-albuterol 3 mL Neb INHALATION ×4 (02:50→20:22)
--- NOTE | 2021-02-09 03:00 | XRR_ITS ---
PROCEDURE INFORMATION: Exam: XR Chest Exam date and time: 02/09/2021 3:00 AM Age: 70 years old Clinical indication: Shortness of breath; Additional info: Resp failure TECHNIQUE: Imaging protocol: XR of the chest. Views: 1 view. COMPARISON: CR XR chest 1V portable [id number] 02/08/2021 10:05 AM FINDINGS: Tubes, catheters and devices: Right central line is in the SVC. Endotracheal tube is 19 mm above the gracia. NG tube is in the stomach Lungs: Parenchymal densities are present in the right upper lobe and left lower lobe consistent with pneumonia. These findings have increased since prior examination. Pleural spaces: Unremarkable. No pleural effusion. No pneumothorax. Heart/Mediastinum: Unremarkable. No cardiomegaly. Bones/joints: Unremarkable. XR/XR chest 1V portable [id number] IMPRESSION: 1. Right upper lobe and left lower lobe pneumonia increased since prior . 2. Endotracheal tube is above the gracia. 3. NG tube is in the stomach. 4. Right central line is in the SVC
[2021-02-09 04:56] LABS: Alanine Aminotransferase 47 U/L (0-33); Alkaline Phosphatase 138 IU/L (35-105); Anion Gap 17.5 (5-19); Aspartate Amino Transferase 67 U/L (0-32); Carbon Dioxide 24 mmol/L (22-29); Chloride 95 mmol/L (98-107); Globulin 3.5 g/dL (1.3-4.6); Glomerular Filtration Rate 29.9 mL/min (90-130); Glucose 202 mg/dL (65-115); Potassium 3.5 mmol/L (3.5-5.1); Sodium 133 mmol/L (136-145); Total Bilirubin 0.4 mg/dL (0.15-1.2); Total Protein 6.5 g/dL (6.6-8.7)
[2021-02-09 05:29] LABS: Blood Urea Nitrogen 37 mg/dL (8-23); Calcium 7.8 mg/dL (8.5-10.5); Osmolality Calculated 290 mOsm/kg (285-295)
[2021-02-09 05:38] LABS: ABG PCO2 53.7 mmHg (35-45); ABG PH Result 7.33 (7.35-7.45); Arterial Blood Gas Hematocrit 46.3 % (37-47); Base Excess ABG 0.9 mmol/L (-2.0-2.0); Blood Gas Allen Test Pos; Blood Gas Operator Identificat JB; Blood Gas Sample Site Radial, left; Blood Gas Sample Type Arterial; HCO3 ABG 28.1 mmol/L (22-26)
[2021-02-09 05:39] LABS: Blood Gas Tidal Volume 0.37
[2021-02-09] MEDS: famotidine 20 mg Tablet PO (06:14)
--- NOTE | 2021-02-09 07:00 | PC.NURSE ---
Shift Note Frequent safety and comfort rounds continue. Orders and/or nursing care completed as indicated. Patient monitored for response to intervention and treatment(s). Education provided includes[]. Patient and/or new accounts banking representative [ResponseToTeaching]. Will continue to monitor. The patient did really well proned. The FiO2 was at 100% at the beginning of shift, and has been titrated down to 60%. At 60% the patient has had an oxygen saturation from 95%-100%. We were at ventilator synchrony the entire shift, and experienced no complications with the ventilator or with sputum plugs. The BIS monitor showed a number from 38-50 most of the shift. At the beginning of the shift the patient was also on 8 mcg. of Levophed, and that has since been titrated off. The patient is on Fentanyl and Propofol for sedation at very low doses. There were not significant changes during the shift. The patient's blood pressure, even after the levophed was turned off, has been within normal parameters. I relayed the information from Dr. Zamudio this morning, for the day shift nurse to keep close eye on the patient's hematoma. I informed Teresa of this note.
--- NOTE | 2021-02-09 07:20 | PM.PN ---
Subjective Subjective: Interval history: Modesta is sedated, paralyzed and proned. Her FiO2 has decreased. Medications: Reviewed: Yes Vitals/I&O/Wt Last Vital Signs Temp 97.6 F 02/09/21 04:00 Pulse 82 02/09/21 06:20 Resp 18 02/09/21 06:20 BP 146/75 02/09/21 06:20 Pulse Ox 98 02/09/21 06:20 02/08/21 02/09/21 02/09/21 22:59 06:59 14:59 Intake Total 571.759 / 698.351 392.980 / 1091.331 Output Total 850 / 850 Balance 571.759 / 698.351 -457.020 / 241.331 Weight last 48 hrs Weight 127.006 kg Weight 127.006 kg Physical Exam Narrative: EXAM NARRATIVE: General exam intubated and sedated and proned Neck is supple no lymphadenopathy or thyromegaly Cardiovascular regular rate and rhythm, no murmur Lungs coarse breath sounds bilaterally Abdomen with bowel sounds. Unable to observe hematoma at this time that was present right upper quadrant. demonstrates Bajwa Extremities no cyanosis clubbing or edema, cap refill brisk Urinary Catheter Management^: Bajwa: Cath Placed During This Visit: yes Reason for Continuing Indwelling Catheter: Accurate Measurement of Urinary Output in Critically Ill Patients Urinary Catheter Date of Insertion: 02/07/21 Urinary Catheter Time of Insertion: 10:07 Data : 02/08/21 13:54 02/09/21 03:38 Micro: Microbiology 02/07/21 13:50 Blood Culture - Preliminary Blood NEGATIVE TO DATE 02/07/21 09:22 Blood Culture - Preliminary Blood NEGATIVE TO DATE 02/07/21 22:25 MRSA Culture - Final Nose Other data: Chest x-ray on hold until patient proned. ABG 7.33, 53, 77 CBC pending LFTs improved A&P Assessment and plan (1) Pneumonia due to COVID-19 virus: Continue sedation with fentanyl, propofol. Versed drip if needed. Completing first proning session with improvement of FiO2 which is down to 60%. On Nimbex Continue remdesivir Continue dexamethasone 1 dose of Actemra was given February 07 Continue pulmonary toilet Procalcitonin level is normal. No evidence for bacterial pneumonia. Rocephin and azithromycin empirically MRSA PCR negative. Awaiting bacterial antigens Blood cultures negative to date Norepinephrine as needed for blood pressure support. This has been weaned down significantly. Dimer checked and not significantly elevated at this time. Status: Acute (2) Acute and chronic respiratory failure with hypoxia: Secondary to COVID-19 pneumonia Status: Acute (3) COPD (chronic obstructive pulmonary disease): No evidence of exacerbation Status: Chronic (4) Rhabdomyolysis: Not a candidate for significant fluids Statin discontinued CK decreasing Status: Acute Additional A&P Information Acute kidney injury. Continue to follow closely. Currently pressures are stable. I suspect this may improve in the next 1 to 2 days. Transaminitis. Consistent with Covid hypertension. Hold blood pressure medication Abdominal wall hematoma. Margins marked. Reevaluate today when patient is supine Multiple other medical problems as outlined in past medical history Full code. Lovenox for DVT prophylaxis will be held secondary to abdominal wall hematoma. After reevaluation today could consider restarting Lovenox, perhaps at lower dose. She was previously on 40 mg every 24 hours. Will check INR. Attestations Medical Necessity Statement*: Needs continued hospitalization secondary to severe COVID-19 pneumonia requiring mechanical ventilation. Critical Care Time: The high probability of a clinically significant, sudden or life threatening deterioration of the patient's [pulmonary, renal, hematologic] system(s) required my full and direct attention, intervention and personal management. The critical care time is as shown. This time is in addition to time spent performing any reported procedures but includes the following: [x] Data and vital sign review and interpretation [x] Patient assessment, examination and intervention [x] Documentation [x] Medication orders and management Critical Care Time (min): 35 Coding Level of Care Code Acute Plastics Fabricator Or Welder for [facility] Diagnoses Pneumonia due to COVID-19 virus U07.1; J12.82 Acute and chronic respiratory failure with hypoxia J96.21 COPD (chronic obstructive pulmonary disease) J44.9 Rhabdomyolysis M62.82
[2021-02-09] MEDS: cisatracurium 100 MG in sodium chloride 0.9% 50 ML 5.72 MG IV (07:35)
[2021-02-09] MEDS: dexamethasone 10 mg/mL INJ 6 MG IVP (07:36)
--- NOTE | 2021-02-09 08:14 | PC.NURSE ---
Patient was paralyzed and proned this AM and synchronized with the vent settings. Sclera edema was noted.
[2021-02-09 09:58] LABS: Basophils % 0.1 %; Hematocrit 36.7 % (37.0-47.0); Hemoglobin 12.2 g/dL (11.5-15.3); Lymphocytes # 1.2 10^3/uL (0.8-4.8); Lymphocytes % 12.8 %; Mean Corpuscular HGB Conc 33.2 g/dL (30.0-36.0); Mean Corpuscular Hemoglobin 28.2 pg (28.0-34.0); Mean Corpuscular Volume 84.8 fl (81-99); Mean Platelet Volume 10.4 fL (7.4-10.4); Monocytes # 0.7 10^3/uL (0.2-0.9); Monocytes % 7.3 %; Neutrophils # 7.12 10^3/uL (1.8-7.7); Neutrophils % 77.7 %; Nucleated Red Blood Cells % 0 %; Platelet Count 260 10^3/cmm (130-400); Red Blood Count 4.33 10^6/uL (4.1-5.3); White Blood Count 9.2 10^3/uL (4.0-10.0)
[2021-02-09 10:11] LABS: INR 1.12 (0.8-1.2)
[2021-02-09] MEDS: propofol 1,000 MG/100 ML INJ 26.67 MG IV ×3 (12:38→21:07)
[2021-02-09] MEDS: docusate sodium 10 mg/mL (5ml) Liq 100 MG PO (17:22)
[2021-02-09] MEDS: remdesivir 100 MG in sodium chloride 0.9% (100 ml) 100 ML IV (17:22)
[2021-02-09] MEDS: fluticasone nasal spray 16gm Btl 1 SPRAY INTRANASAL (17:22)
--- NOTE | 2021-02-09 17:48 | PC.NURSE ---
RUQ hematoma the same size as yesterday. No growth noted. Rectal temperature was taken and it was 93.9. Claudia hugger applied.
--- NOTE | 2021-02-09 17:55 | PC.NURSE ---
TOF BIS 0800 3 51 1000 3 55 1200 4 50 1600 4 42 1800 4 40
[2021-02-09] MEDS: montelukast sodium 10 mg Tablet PO (20:04)
[2021-02-09] MEDS: sennosides 8.6 mg Tablet PO (20:04)
[2021-02-09] MEDS: azithromycin 500 MG in sodium chloride 0.9% 250 ML 250 MG IV (20:05)
[2021-02-09] MEDS: cefTRIAXone 1,000 MG in sodium chloride 0.9% (plus) 50 ML 100 MG IV (20:05)
[2021-02-10] VITALS (34 sets, daily range): BP systolic 77–192; BP diastolic 50–90; PULSE 66–127; RESP 18–20; TEMP 36.6–37.2; O2SAT 88–100
[2021-02-10] MEDS: propofol 1,000 MG/100 ML INJ 26.67 MG IV ×4 (01:51→21:21)
[2021-02-10] MEDS: cisatracurium 100 MG in sodium chloride 0.9% 50 ML IV (02:45)
[2021-02-10] MEDS: ipratropium-albuterol 3 mL Neb INHALATION ×4 (03:13→20:37)
[2021-02-10 04:27] LABS: Basophils % 0.2 %; Hematocrit 35.6 % (37.0-47.0); Hemoglobin 11.5 g/dL (11.5-15.3); Lymphocytes # 1.1 10^3/uL (0.8-4.8); Lymphocytes % 10.8 %; Mean Corpuscular HGB Conc 32.3 g/dL (30.0-36.0); Mean Corpuscular Hemoglobin 27.7 pg (28.0-34.0); Mean Corpuscular Volume 85.8 fl (81-99); Mean Platelet Volume 10.7 fL (7.4-10.4); Neutrophils # 7.46 10^3/uL (1.8-7.7); Neutrophils % 76.6 %; Nucleated Red Blood Cells % 0 %; Platelet Count 294 10^3/cmm (130-400); Red Blood Count 4.15 10^6/uL (4.1-5.3); Red Cell Distribution Width 14.2 % (12.1-15.1); White Blood Count 9.7 10^3/uL (4.0-10.0)
[2021-02-10 04:31] LABS: ABG PCO2 53.3 mmHg (35-45); ABG PH Result 7.35 (7.35-7.45); Arterial Blood Gas Hematocrit 37.2 % (37-47); Base Excess ABG 2.6 mmol/L (-2.0-2.0); Blood Gas Allen Test Pos; Blood Gas Operator Identificat JB; Blood Gas Sample Site Radial, right; Blood Gas Sample Type Arterial; HCO3 ABG 29.2 mmol/L (22-26); Oxygen Device VENT
[2021-02-10 04:53] LABS: Alanine Aminotransferase 48 U/L (0-33); Albumin Level 2.9 g/dL (3.5-5.2); Alkaline Phosphatase 130 IU/L (35-105); Anion Gap 12.6 (5-19); Aspartate Amino Transferase 72 U/L (0-32); Blood Urea Nitrogen 38 mg/dL (8-23); Carbon Dioxide 29 mmol/L (22-29); Chloride 98 mmol/L (98-107); Creatine Phosphokinase 127 U/L (26-192); Glomerular Filtration Rate 34.5 mL/min (90-130); Glucose 159 mg/dL (65-115); Magnesium 2.4 mg/dL (1.7-2.3); Osmolality Calculated 294 mOsm/kg (285-295); Potassium 3.6 mmol/L (3.5-5.1); Sodium 136 mmol/L (136-145); Total Bilirubin 0.4 mg/dL (0.15-1.2); Total Protein 5.9 g/dL (6.6-8.7)
[2021-02-10 04:57] LABS: D Dimer 0.71 ug/mIFEU (0-0.59)
--- NOTE | 2021-02-10 07:00 | XRR_ITS ---
PROCEDURE INFORMATION: Exam: XR Chest Exam date and time: 02/10/2021 7:00 AM Age: 70 years old Clinical indication: Shortness of breath; Patient HX: Resp failure. Covid + TECHNIQUE: Imaging protocol: XR of the chest. Views: 1 view. COMPARISON: CR (CHEST, ) 02/09/2021 11:42 AM FINDINGS: Tubes, catheters and devices: The ETT has been slightly retracted and now terminates 3 cm above the gracia. The right IJ central venous catheter is stable in position. A naso/nahum-gastric tube remains in place. Lungs: The left lung opacities have mildly worsened since the prior study. The right lung opacities appear stable. Pleural spaces: Unremarkable. No pleural effusion. No pneumothorax. Heart/Mediastinum: Unremarkable. No cardiomegaly. Bones/joints: No acute fracture is seen. XR/XR chest 1V portable [id number] IMPRESSION: Mild interval worsening pneumonia, particularly in the left lung.
[2021-02-10] MEDS: famotidine 20 mg Tablet PO (07:02)
--- NOTE | 2021-02-10 07:30 | PC.NURSE ---
Shift Note Frequent safety and comfort rounds continue. Orders and/or nursing care completed as indicated. Patient monitored for response to intervention and treatment(s). Education provided includes[]. Patient and/or technology sales representative [ResponseToTeaching]. Will continue to monitor. Patient was proned at 2200. Vitals remained stable for the patient during the shift. 2000 TOF = 3/4, BIS = 40 2200 TOF = 3/4, BIS = 42 0000 TOF = 3/4, BIS = 46 0200 TOF = 2/4, BIS = 42 0400 TOF = 3/4, BIS = 48 0600 TOF = 3/4, BIS = 48
[2021-02-10] MEDS: dexamethasone 10 mg/mL INJ 6 MG IVP (08:47)
[2021-02-10] MEDS: docusate sodium 10 mg/mL (5ml) Liq 100 MG PO ×2 (08:47→17:23)
[2021-02-10] MEDS: fluticasone nasal spray 16gm Btl 1 SPRAY INTRANASAL ×2 (08:48→17:23)
--- NOTE | 2021-02-10 09:32 | PM.PN ---
Subjective Subjective: Interval history: Intubated, sedated, paralyzed, proned. Vitals/I&O/Wt Last Vital Signs Temp 98.0 F 02/10/21 08:00 Pulse 96 02/10/21 08:48 Resp 18 02/10/21 08:48 BP 97/52 02/10/21 08:00 Pulse Ox 98 02/10/21 08:48 02/09/21 02/10/21 02/10/21 22:59 06:59 14:59 Intake Total 965.953 / 1173.386 333.907 / 1507.293 Output Total 500 / 500 650 / 1150 Balance 465.953 / 673.386 -316.093 / 357.293 Physical Exam Const: GENERAL APPEARANCE: patient mechanically ventilated NUTRITIONAL APPEARANCE: obese morbidly obese OTHER: Sedated, paralyzed HENMT: COMMON NORMALS: oropharynx normal Neck/C-Spine: COMMON NORMALS: no JVD Resp: COMMON NORMALS: clear to auscultation bilaterally AUSCULTATION: clear to auscultation bilaterally Cardio: COMMON NORMALS: no JVD, regular rhythm, S1 normal heart sound present, S2 normal heart sound present and No murmurs present (Cardio) RHYTHM: regular rhythm HEART SOUNDS: S1 normal heart sound present and S2 normal heart sound present GI: COMMON NORMALS: Normal to inspection, nondistended, normoactive bowel sounds present and Soft to palpation PALPATION: Yes Soft to palpation Extremity: COMMON NORMALS: no joint enlargement and no pedal edema Skin: COMMON NORMALS: no rashes or lesions noted GENERAL SKIN EXAM: no rashes or lesions noted Urinary Catheter Management^: Bajwa: Cath Placed During This Visit: yes Reason for Continuing Indwelling Catheter: Accurate Measurement of Urinary Output in Critically Ill Patients Urinary Catheter Date of Insertion: 02/07/21 Urinary Catheter Time of Insertion: 10:07 Data : 02/10/21 03:30 02/10/21 03:30 Micro: Microbiology 02/08/21 22:14 Gram Stain - Final Sputum - Endotracheal Tube Aspirate A&P Assessment and plan (1) Pneumonia due to COVID-19 virus: Continue second proning session. Paralytics, sedatives. Continue remdesivir Continue dexamethasone 1 dose of Actemra was given February 07 Continue pulmonary toilet For now continue Rocephin and azithromycin empirically MRSA PCR negative. Pending bacterial antigens Blood cultures negative to date Weaned off norepinephrine. As needed for blood pressure support. Reassess ddimer Status: Acute (2) Acute and chronic respiratory failure with hypoxia: Secondary to COVID-19 pneumonia Status: Acute (3) COPD (chronic obstructive pulmonary disease): No evidence of exacerbation Status: Chronic Qualifiers: COPD type: unspecified COPD Qualified Code(s): J44.9 - Chronic obstructive pulmonary disease, unspecified (4) Rhabdomyolysis: Resolved. Statin held. Renal function improving. Status: Acute Qualifiers: Rhabdomyolysis type: non-traumatic Qualified Code(s): M62.82 - Rhabdomyolysis Additional A&P Information Acute kidney injury. Improving. Pressures are stable. Monitor, support as needed. Transaminitis. Consistent with Covid hypertension. Hold blood pressure medication Abdominal wall hematoma. Margins marked. Lovenox on hold. SCDs for VT prophylaxis. If no significant expansion within a day or 2, consider possibly resumption of low intensity DVT prophylaxis. Multiple other medical problems as outlined in past medical history Attestations Medical Necessity Statement*: Continue admission for hypoxic respite failure with severe COVID-19. Coding Level of Care Code Acute Wound Care Technician for [facility] Diagnoses Pneumonia due to COVID-19 virus U07.1; J12.82 Acute and chronic respiratory failure with hypoxia J96.21 COPD (chronic obstructive pulmonary disease) J44.9 COPD type: unspecified COPD Rhabdomyolysis M62.82 Rhabdomyolysis type: non-traumatic
--- NOTE | 2021-02-10 14:57 | PC.SOCIAL ---
IMM update IMM updated with patient's grandson. Verbalized an understanding. Initialled, dated, timed, and placed in chart.
[2021-02-10] MEDS: propofol 1,000 MG/100 ML INJ 15.24 MG IV (16:44)
[2021-02-10] MEDS: remdesivir 100 MG in sodium chloride 0.9% (100 ml) 100 ML IV (17:24)
[2021-02-10] MEDS: cefTRIAXone 1,000 MG in sodium chloride 0.9% (plus) 50 ML 100 MG IV (20:13)
[2021-02-10] MEDS: montelukast sodium 10 mg Tablet PO (20:13)
[2021-02-10] MEDS: sennosides 8.6 mg Tablet PO (20:13)
[2021-02-11] VITALS (36 sets, daily range): BP systolic 92–173; BP diastolic 56–85; PULSE 60–102; RESP 18–20; TEMP 36.4–36.6; O2SAT 91–100
[2021-02-11] MEDS: propofol 1,000 MG/100 ML INJ 26.67 MG IV ×2 (02:41)
[2021-02-11] MEDS: ipratropium-albuterol 3 mL Neb INHALATION ×4 (02:50→20:15)
[2021-02-11 04:40] LABS: Basophils # 0.1 10^3/uL (0.0-0.1); Basophils % 0.5 %; Hemoglobin 11.3 g/dL (11.5-15.3); Lymphocytes % 18.5 %; Mean Corpuscular HGB Conc 32.3 g/dL (30.0-36.0); Mean Corpuscular Hemoglobin 28.1 pg (28.0-34.0); Mean Corpuscular Volume 87.1 fl (81-99); Mean Platelet Volume 10.7 fL (7.4-10.4); Monocytes # 1.1 10^3/uL (0.2-0.9); Monocytes % 10.3 %; Neutrophils # 7.19 10^3/uL (1.8-7.7); Neutrophils % 65.7 %; Nucleated Red Blood Cells % 0 %; Platelet Count 349 10^3/cmm (130-400); Red Blood Count 4.02 10^6/uL (4.1-5.3); Red Cell Distribution Width 14.5 % (12.1-15.1)
[2021-02-11 05:15] LABS: Alanine Aminotransferase 73 U/L (0-33); Albumin Level 2.9 g/dL (3.5-5.2); Alkaline Phosphatase 124 IU/L (35-105); Anion Gap 13.6 (5-19); Aspartate Amino Transferase 114 U/L (0-32); Blood Urea Nitrogen 42 mg/dL (8-23); Calcium 7.7 mg/dL (8.5-10.5); Carbon Dioxide 28 mmol/L (22-29); Chloride 96 mmol/L (98-107); Creatinine Clr Calc Pharmacy 56.4808; Globulin 2.9 g/dL (1.3-4.6); Glomerular Filtration Rate 40.7 mL/min (90-130); Glucose 146 mg/dL (65-115); Osmolality Calculated 291 mOsm/kg (285-295); Potassium 3.6 mmol/L (3.5-5.1); Sodium 134 mmol/L (136-145); Total Bilirubin 0.5 mg/dL (0.15-1.2); Total Protein 5.8 g/dL (6.6-8.7)
[2021-02-11] MEDS: famotidine 20 mg Tablet PO (05:16)
[2021-02-11] MEDS: cisatracurium 100 MG in sodium chloride 0.9% 50 ML 5.72 MG IV ×2 (05:17→20:16)
[2021-02-11 05:45] LABS: D Dimer 1.02 ug/mIFEU (0-0.59)
[2021-02-11 06:10] LABS: Slide Review Slide Review Perform
[2021-02-11] MEDS: propofol 1,000 MG/100 ML INJ 38.1 MG IV ×7 (06:38→23:32)
--- NOTE | 2021-02-11 07:00 | PC.NURSE ---
Addendum entered by Donald Mohr RN 02/11/21 07:57: The patient was in the supine position at the start of shift and was proned at 0200. Claudia, the respiratory therapist, was present during the turn, along with three other nurses. Vitals remained mostly stable and the patient had 750 mL out in urine for the shift . The TOF was mostly 3/4 for the shift. Original Note: Shift Note Frequent safety and comfort rounds continue. Orders and/or nursing care completed as indicated. Patient monitored for response to intervention and treatment(s). Education provided includes[]. Patient and/or surgical sales representative [ResponseToTeaching]. Will continue to monitor.
[2021-02-11] MEDS: dexamethasone 10 mg/mL INJ 6 MG IVP (07:09)
[2021-02-11] MEDS: docusate sodium 10 mg/mL (5ml) Liq 100 MG PO ×2 (08:21→18:27)
[2021-02-11] MEDS: fluticasone nasal spray 16gm Btl 1 SPRAY INTRANASAL ×2 (08:21→18:26)
--- NOTE | 2021-02-11 08:36 | PC.CHAP ---
Pastoral Care Encounter/Spiritual Assessment Type of Contact [] Declined vp genetic visit [] Patient/Family/Request visit [] Outpatient visit [] Follow-up visit [] Physician referral [] Code/Alert [x] Routine visit [] Staff referral [] Actively dying [] Patient sleeping [] Family support [] [] Out of room [] Palliative care [] [] Receiving care in room [] Pre-surgical visit [] Trauma [] Long length of stay [x] ICU visit [x] Other: covid Relational/Emotional Strength [] Patient feels connected with others/family/visitors/staff [] Distress [] Loneliness/isolation [] Abandonment Spirituality of Patient [] Person of Connie [] Attends Anabaptist of their Connie [] Believes in Prayer [] Reads Bible or Gnosticist materials [] There are Spiritual issues to be addressed Psychological Operations Interventions [x] Prayer [] Active listening [] Non-anxious presence [] Spiritual/emotional support [] Crisis/trauma care [] Spiritual counseling [] Bereavement support [] Provided bereavement packet [] Provided Bible/devotional materials [] Provided toy/stuffed animal, coloring book to patient or family member [] Provided Communion [] Anointing/Villas [] Salvation [x] Completed spiritual assessment [] Other: Impact on Illness or Injury [] Angry [] Fearful [] Anxious [] Often cries [] Exhaustion [] Unable to work [] Unable to attend adventist [] Unable to walk/stand [] Unable to read [] Unable to drive [] Unable to eat/drink [] Unable to sleep [] Unable to be with family [] Patient intubated [] Other: Summary Time spent with patient
--- NOTE | 2021-02-11 10:20 | P.PN_ITS ---
Subjective Subjective: Interval history: Modesta is sedated, paralyzed, and proned. Medications: Reviewed: Yes Vitals/I&O/Wt Last Vital Signs Temp 97.9 F 02/11/21 07:16 Pulse 90 02/11/21 08:36 Resp 18 02/11/21 09:38 BP 99/56 02/11/21 07:16 Pulse Ox 99 02/11/21 09:38 02/10/21 02/11/21 02/11/21 22:59 06:59 14:59 Intake Total 441.685 / 596.907 330.262 / 927.169 213.360 / 213.360 Output Total 550 / 550 750 / 1300 Balance -108.315 / 46.907 -419.738 / -372.831 213.360 / 213.360 Physical Exam Narrative: EXAM NARRATIVE: General exam intubated and sedated and proned Neck is supple no lymphadenopathy or thyromegaly Cardiovascular regular rate and rhythm, no murmur Lungs coarse breath sounds bilaterally Abdomen with bowel sounds. Unable to observe hematoma at this time that was present right upper quadrant. demonstrates Bajwa Extremities no cyanosis clubbing or edema, cap refill brisk Urinary Catheter Management^: Bajwa: Cath Placed During This Visit: yes Reason for Continuing Indwelling Catheter: Accurate Measurement of Urinary Output in Critically Ill Patients Urinary Catheter Date of Insertion: 02/07/21 Urinary Catheter Time of Insertion: 10:07 Data : 02/11/21 03:15 02/11/21 03:15 Micro: Microbiology 02/10/21 15:35 Bacterial Antigens - Final Urine,Clean Catch 02/08/21 22:14 Gram Stain - Final Sputum - Endotracheal Tube Aspirate Sputum Culture - Preliminary A&P Assessment and plan (1) Pneumonia due to COVID-19 virus: Continue second proning session. Paralytics, sedatives. She is currently on her last session of proning Continue remdesivir Continue dexamethasone 1 dose of Actemra was given February 07 Continue pulmonary toilet On Rocephin empirically. She completed her course of a azithromycin. MRSA PCR negative. Bacterial antigens are negative. Blood cultures negative to date Norepinephrine as needed for blood pressure support Status: Acute (2) Acute and chronic respiratory failure with hypoxia: Secondary to COVID-19 pneumonia Status: Acute (3) COPD (chronic obstructive pulmonary disease): No evidence of exacerbation Status: Chronic Qualifiers: COPD type: unspecified COPD Qualified Code(s): J44.9 - Chronic obstructive pulmonary disease, unspecified (4) Rhabdomyolysis: Resolved. Statin held. Renal function improving. Status: Acute Qualifiers: Rhabdomyolysis type: non-traumatic Qualified Code(s): M62.82 - Rhabdomyolysis Additional A&P Information Acute kidney injury. Improved Transaminitis. Consistent with Covid hypertension. Hold blood pressure medication Abdominal wall hematoma. Margins marked. Lovenox on hold. SCDs for VT prophylaxis. Could consider today. Hemoglobin drop was relatively minor. Would use lower dose Lovenox. When she is supine this will be reviewed. Multiple other medical problems as outlined in past medical history Attestations Medical Necessity Statement*: Needs continued hospitalization for severe COVID-19 pneumonia requiring mechanical ventilation. Critical Care Time: The high probability of a clinically significant, sudden or life threatening deterioration of the patient's [pulmonary, renal] system(s) required my full and direct attention, intervention and personal management. The critical care time is as shown. This time is in addition to time spent performing any reported procedures but includes the following: [x] Data and vital sign review and interpretation [x] Patient assessment, examination and intervention [x] Documentation [x] Medication orders and management Critical Care Time (min): 33 Coding Level of Care Code Acute Project Development Director for [facility] Diagnoses Pneumonia due to COVID-19 virus U07.1; J12.82 Acute and chronic respiratory failure with hypoxia J96.21 COPD (chronic obstructive pulmonary disease) J44.9 COPD type: unspecified COPD Rhabdomyolysis M62.82 Rhabdomyolysis type: non-traumatic
--- NOTE | 2021-02-11 17:00 | PC.NURSE ---
Supine Pt placed supine by nursing staff and RT.
[2021-02-11] MEDS: remdesivir 100 MG in sodium chloride 0.9% (100 ml) 100 ML IV (18:25)
--- NOTE | 2021-02-11 18:50 | PC.NUTR ---
Nutrition Note: Pt. has been NPO for 5 days, but is currently receiving Propofol 38.1 mls/hr which provides 1005 kcal - approximately 63% of daily estimated kcals - but does not provide protein. If medically appropriate and in agreement with goals of care, recommend in addition to Propofol, consideration of Jevity 1.2 started at 10 ml/hr, increase by 10 ml/hr (as tolerated) q 8 hours until goal rate of 20 ml is reached, with fresh water flushes of 120 ml q 4 hrs. Propofol + Jevity 1.2 @ 20ml/hr will provide 1581 kcals (99% est kcal goals)and 26 grams (30% est Prot. goals) protein. If Propofol is decreased, recommend consideration of corresponding increase in TF by 10 ml for a goal rate of 30 ml/hour.
[2021-02-11] MEDS: enoxaparin 30 mg/0.3 mL Syringe SUBCUT (20:16)
[2021-02-11] MEDS: cefTRIAXone 1,000 MG in sodium chloride 0.9% (plus) 50 ML 100 MG IV (20:16)
[2021-02-11] MEDS: sennosides 8.6 mg Tablet PO (20:17)
[2021-02-11] MEDS: montelukast sodium 10 mg Tablet PO (20:17)
[2021-02-12] VITALS (52 sets, daily range): BP systolic 77–154; BP diastolic 48–89; PULSE 54–153; RESP 15–26; TEMP 35.8–36.6; O2SAT 87–97
[2021-02-12] MEDS: ipratropium-albuterol 3 mL Neb INHALATION ×4 (02:35→20:33)
[2021-02-12] MEDS: propofol 1,000 MG/100 ML INJ 38.1 MG IV ×5 (03:11→16:48)
[2021-02-12 05:00] LABS: ABG PCO2 41.5 mmHg (35-45); ABG PH Result 7.45 (7.35-7.45); Arterial Blood Gas Hematocrit 35.9 % (37-47); Base Excess ABG 4.7 mmol/L (-2.0-2.0); Blood Gas Allen Test Pos; Blood Gas Sample Type Arterial; HCO3 ABG 29.1 mmol/L (22-26); PO2 ABG 65.7 mmHg (80.0-100.0)
[2021-02-12 05:03] LABS: Blood Gas Sample Site Radial, right; Oxygen Device VENT
[2021-02-12] MEDS: famotidine 20 mg Tablet PO (05:35)
[2021-02-12 06:02] LABS: Hematocrit 35.7 % (37.0-47.0); Hemoglobin 11.5 g/dL (11.5-15.3); Mean Corpuscular HGB Conc 32.2 g/dL (30.0-36.0); Mean Corpuscular Hemoglobin 28.1 pg (28.0-34.0); Mean Corpuscular Volume 87.3 fl (81-99); Mean Platelet Volume 10.4 fL (7.4-10.4); Platelet Count 385 10^3/cmm (130-400); Red Blood Count 4.09 10^6/uL (4.1-5.3); Red Cell Distribution Width 14.6 % (12.1-15.1); White Blood Count 14.3 10^3/uL (4.0-10.0)
[2021-02-12 06:13] LABS: D Dimer 0.78 ug/mIFEU (0-0.59)
[2021-02-12 06:19] LABS: Alanine Aminotransferase 168 U/L (0-33); Alkaline Phosphatase 125 IU/L (35-105); Anion Gap 16.1 (5-19); Aspartate Amino Transferase 230 U/L (0-32); Blood Urea Nitrogen 37 mg/dL (8-23); Calcium 7.9 mg/dL (8.5-10.5); Carbon Dioxide 28 mmol/L (22-29); Chloride 99 mmol/L (98-107); Globulin 2.9 g/dL (1.3-4.6); Glomerular Filtration Rate 62.3 mL/min (90-130); Glucose 128 mg/dL (65-115); Osmolality Calculated 298 mOsm/kg (285-295); Potassium 4.1 mmol/L (3.5-5.1); Sodium 139 mmol/L (136-145); Total Bilirubin 0.5 mg/dL (0.15-1.2); Total Protein 5.9 g/dL (6.6-8.7)
--- NOTE | 2021-02-12 06:56 | PC.NURSE ---
Shift Note Frequent safety and comfort rounds continue. Orders and/or nursing care completed as indicated. Patient monitored for response to intervention and treatment(s). Education provided includes[]. Patient and/or customer operations representative [ResponseToTeaching]. Will continue to monitor. The patient did well during the shift, vitals remained stable, and there were no negative surprises during the shift. Urine output remains low, despite the creatinine and BUN decreasing slightly. Oxygen saturation remained in the range from 90-95%.
[2021-02-12] MEDS: cisatracurium 100 MG in sodium chloride 0.9% 50 ML 5.72 MG IV (06:58)
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
[2021-02-12 07:12] LABS: Slide Review Slide Review Perform
[2021-02-12 07:15] LABS: Absolute Neutrophil 9.7 10^3/cmm (1.4-6.5); Absolute Segmented Neutrophil 9.2 10/cmm (1.6-7.1); Band Neutrophils Absolute 0.6 10^3/cmm (0.0-1.2); Eosinophils 0 %; Lymphocytes 11 %; Monocytes Absolute 1.1 10^3/cmm (0.1-0.6); Platelet Estimate Normal (Normal); Segmented Neutrophils 64 %; Total Cells Counted 100 (0-100)
--- NOTE | 2021-02-12 07:52 | P.PN_ITS ---
Subjective Subjective: Interval history: No issues with proning overnight. FiO2 down to 40%. Still paralyzed, intubated and sedated. Medications: Reviewed: Yes Vitals/I&O/Wt Last Vital Signs Temp 97.8 F 02/12/21 07:03 Pulse 72 02/12/21 07:03 Resp 18 02/12/21 07:03 BP 111/59 02/12/21 07:03 Pulse Ox 96 02/12/21 05:49 02/11/21 02/12/21 02/12/21 22:59 06:59 14:59 Intake Total 535.400 / 1023.458 604.854 / 1628.312 Output Total 1200 / 1200 350 / 1550 Balance -664.600 / -176.542 254.854 / 78.312 Physical Exam Narrative: EXAM NARRATIVE: General exam intubated and sedated and now supine Neck is supple no lymphadenopathy or thyromegaly Cardiovascular regular rate and rhythm, no murmur Lungs coarse breath sounds bilaterally Abdomen with bowel sounds. Hematoma not definable on exam today. Appears gone. demonstrates Bajwa Extremities no cyanosis clubbing or edema, cap refill brisk Urinary Catheter Management^: Bajwa: Cath Placed During This Visit: yes Reason for Continuing Indwelling Catheter: Accurate Measurement of Urinary Output in Critically Ill Patients Urinary Catheter Date of Insertion: 02/07/21 Urinary Catheter Time of Insertion: 10:07 Data : 02/12/21 05:41 02/12/21 05:41 Micro: Microbiology 02/08/21 22:14 Gram Stain - Final Sputum - Endotracheal Tube Aspirate Sputum Culture - Final A&P Assessment and plan (1) Pneumonia due to COVID-19 virus: She completed 3 sessions of proning Discontinue Nimbex Wean sedation Weaning trial when off paralytic Continue remdesivir. He has almost completed course. Note that LFTs have increased slightly. Continue dexamethasone 1 dose of Actemra was given February 07 Continue pulmonary toilet On Rocephin empirically. She completed her course of a azithromycin. MRSA PCR negative. Bacterial antigens are negative. Blood cultures negative to date Norepinephrine as needed for blood pressure support. Likely can discontinue as sedation is weaned. Status: Acute (2) Acute and chronic respiratory failure with hypoxia: Secondary to COVID-19 pneumonia Status: Acute (3) COPD (chronic obstructive pulmonary disease): No evidence of exacerbation Status: Chronic Qualifiers: COPD type: unspecified COPD Qualified Code(s): J44.9 - Chronic obstructive pulmonary disease, unspecified (4) Rhabdomyolysis: Resolved. Statin held. Renal function improving. Status: Acute Qualifiers: Rhabdomyolysis type: non-traumatic Qualified Code(s): M62.82 - Rhabdomyolysis Additional A&P Information Acute kidney injury. Improved Transaminitis. Consistent with Covid. Continue to follow. hypertension. Hold blood pressure medication. Blood pressure currently low. Abdominal wall hematoma. Improved. Lovenox lower dose was resumed.. Hemoglobin drop was relatively minor. Nutrition. Weaning trial today. Possible extubation today or tomorrow. If thi s changes consider initiating tube feeds. Multiple other medical problems as outlined in past medical history Full code Pepcid for GI prophylaxis Lovenox lower dose for DVT prophylaxis. Attestations Medical Necessity Statement*: Needs continued hospitalization secondary to respiratory failure from COVID-19 pneumonia requiring mechanical ventilation. Critical Care Time: The high probability of a clinically significant, sudden or life threatening deterioration of the patient's [pulmonary, renal] system(s) required my full and direct attention, intervention and personal management. The critical care time is as shown. This time is in addition to time spent performing any reported procedures but includes the following: [x] Data and vital sign review and interpretation [x] Patient assessment, examination and intervention [x] Documentation [x] Medication orders and management Critical Care Time (min): 30 Coding Level of Care Code Acute Registered Occupational Therapist for [facility] Diagnoses Pneumonia due to COVID-19 virus U07.1; J12.82 Acute and chronic respiratory failure with hypoxia J96.21 COPD (chronic obstructive pulmonary disease) J44.9 COPD type: unspecified COPD Rhabdomyolysis M62.82 Rhabdomyolysis type: non-traumatic
[2021-02-12] MEDS: dexamethasone 10 mg/mL INJ 6 MG IVP (08:07)
[2021-02-12] MEDS: docusate sodium 10 mg/mL (5ml) Liq 100 MG PO ×2 (08:07→17:48)
[2021-02-12] MEDS: fluticasone nasal spray 16gm Btl 1 SPRAY INTRANASAL ×2 (08:08→17:49)
--- NOTE | 2021-02-12 08:41 | PC.CHAP ---
Pastoral Care Encounter/Spiritual Assessment Type of Contact [] Declined accounting director visit [] Patient/Family/Request visit [] Outpatient visit [] Follow-up visit [] Physician referral [] Code/Alert [x] Routine visit [] Staff referral [] Actively dying [] Patient sleeping [] Family support [] [] Out of room [] Palliative care [] [] Receiving care in room [] Pre-surgical visit [] Trauma [] Long length of stay [x] ICU visit [] Other: Relational/Emotional Strength [] Patient feels connected with others/family/visitors/staff [] Distress [] Loneliness/isolation [] Abandonment Spirituality of Patient [] Person of Connie [] Attends Religious of their Connie [] Believes in Prayer [] Reads Bible or Adventist materials [] There are Spiritual issues to be addressed Soccer Ball Assembler Interventions [x] Prayer [] Active listening [] Non-anxious presence [] Spiritual/emotional support [] Crisis/trauma care [] Spiritual counseling [] Bereavement support [] Provided bereavement packet [] Provided Bible/devotional materials [] Provided toy/stuffed animal, coloring book to patient or family member [] Provided Communion [] Anointing/[place] [] Salvation [x] Completed spiritual assessment [] Other: Impact on Illness or Injury [] Angry [] Fearful [] Anxious [] Often cries [] Exhaustion [] Unable to work [] Unable to attend yazdanism [] Unable to walk/stand [] Unable to read [] Unable to drive [] Unable to eat/drink [] Unable to sleep [] Unable to be with family [] Patient intubated [] Other: Summary Time spent with patient
--- NOTE | 2021-02-12 09:12 | PC.SOCIAL ---
IMM update IMM not updated due to patient not expected to DC in the next 24-48 hours.
[2021-02-12 15:03] LABS: Glucose Point of Care 164 mg/dL (70-110)
[2021-02-12] MEDS: dexmedetomidine 400 MCG in sodium chloride 0.9% (100 ml) 100 ML IV (15:26)
--- NOTE | 2021-02-12 18:23 | PC.NURSE ---
Shift Note Frequent safety and comfort rounds continue. Orders and/or nursing care completed as indicated. Patient monitored for response to intervention and treatment(s). Education provided includes weaning of sedation. Patient and/or customer solutions representative verbalize understanding. Will continue to monitor.
[2021-02-12] MEDS: cefTRIAXone 1,000 MG in sodium chloride 0.9% (plus) 50 ML 100 MG IV (19:24)
[2021-02-12] MEDS: sennosides 8.6 mg Tablet PO (20:41)
[2021-02-12] MEDS: enoxaparin 30 mg/0.3 mL Syringe SUBCUT (20:41)
[2021-02-12] MEDS: montelukast sodium 10 mg Tablet PO (20:41)
[2021-02-12] MEDS: propofol 1,000 MG/100 ML INJ 15.24 MG IV (20:44)
[2021-02-12] MEDS: dexmedetomidine 400 MCG in sodium chloride 0.9% (100 ml) 100 ML 6.6 MCG IV (23:37)
[2021-02-13] VITALS (119 sets, daily range): BP systolic 70–179; BP diastolic 54–116; PULSE 59–131; RESP 10–33; TEMP 36–37.2; O2SAT 81–99
[2021-02-13] MEDS: propofol 1,000 MG/100 ML INJ 22.86 MG IV (01:52)
[2021-02-13] MEDS: ipratropium-albuterol 3 mL Neb INHALATION ×4 (03:24→20:41)
--- NOTE | 2021-02-13 03:30 | PC.NURSE ---
Shift Note Frequent safety and comfort rounds continue. Orders and/or nursing care completed as indicated. Patient monitored for response to intervention and treatment(s). Education provided includes ventilator, restraints and medications. Patient and/or quality control representative [ResponseToTeaching]. Patient intubated and sedated and not fully comprehending education at this time. Patient would open eyes but not following commands. She became increasing agitated thoughout shift, breathing against the ventilator causing a drop in SpOx <88%. GTT's titrated per protocol. Ventilator managed by RT. Will continue to monitor.
[2021-02-13] MEDS: famotidine 20 mg Tablet PO (05:04)
[2021-02-13] MEDS: propofol 1,000 MG/100 ML INJ 30.48 MG IV (05:29)
[2021-02-13 05:49] LABS: Basophils # 0.1 10^3/uL (0.0-0.1); Basophils % 0.8 %; Hematocrit 34.3 % (37.0-47.0); Hemoglobin 11.2 g/dL (11.5-15.3); Lymphocytes # 2.1 10^3/uL (0.8-4.8); Lymphocytes % 14.7 %; Mean Corpuscular HGB Conc 32.7 g/dL (30.0-36.0); Mean Corpuscular Hemoglobin 28.6 pg (28.0-34.0); Mean Corpuscular Volume 87.7 fl (81-99); Mean Platelet Volume 10.4 fL (7.4-10.4); Monocytes # 1.4 10^3/uL (0.2-0.9); Monocytes % 9.9 %; Neutrophils # 9.06 10^3/uL (1.8-7.7); Neutrophils % 62.2 %; Nucleated Red Blood Cells # 0.1 /100WBC; Nucleated Red Blood Cells % 0.4 %; Platelet Count 392 10^3/cmm (130-400); Red Blood Count 3.91 10^6/uL (4.1-5.3); Red Cell Distribution Width 14.7 % (12.1-15.1); White Blood Count 14.6 10^3/uL (4.0-10.0)
[2021-02-13 06:05] LABS: Alanine Aminotransferase 244 U/L (0-33); Albumin Level 3.2 g/dL (3.5-5.2); Alkaline Phosphatase 111 IU/L (35-105); Anion Gap 13.5 (5-19); Aspartate Amino Transferase 300 U/L (0-32); Blood Urea Nitrogen 46 mg/dL (8-23); Calcium 7.6 mg/dL (8.5-10.5); Carbon Dioxide 30 mmol/L (22-29); Chloride 100 mmol/L (98-107); Globulin 2.4 g/dL (1.3-4.6); Glomerular Filtration Rate 62.3 mL/min (90-130); Glucose 111 mg/dL (65-115); Osmolality Calculated 301 mOsm/kg (285-295); Potassium 4.5 mmol/L (3.5-5.1); Sodium 139 mmol/L (136-145); Total Bilirubin 0.5 mg/dL (0.15-1.2); Total Protein 5.6 g/dL (6.6-8.7)
[2021-02-13 06:23] LABS: Slide Review Slide Review Perform
--- NOTE | 2021-02-13 08:54 | PC.CHAP ---
Pastoral Care Encounter/Spiritual Assessment Type of Contact [] Declined real estate assessor visit [] Patient/Family/Request visit [] Outpatient visit [] Follow-up visit [] Physician referral [] Code/Alert [x] Routine visit [] Staff referral [] Actively dying [] Patient sleeping [] Family support [] [] Out of room [] Palliative care [] [] Receiving care in room [] Pre-surgical visit [] Trauma [] Long length of stay [x] ICU visit [] Other: Relational/Emotional Strength [] Patient feels connected with others/family/visitors/staff [] Distress [] Loneliness/isolation [] Abandonment Spirituality of Patient [] Person of Connie [] Attends Holiness of their Connie [] Believes in Prayer [] Reads Bible or Zoroastrian materials [] There are Spiritual issues to be addressed Adapted Physical Education Specialist Interventions [x] Prayer [] Active listening [] Non-anxious presence [] Spiritual/emotional support [] Crisis/trauma care [] Spiritual counseling [] Bereavement support [] Provided bereavement packet [] Provided Bible/devotional materials [] Provided toy/stuffed animal, coloring book to patient or family member [] Provided Communion [] Anointing/[place] [] Salvation [x] Completed spiritual assessment [] Other: Impact on Illness or Injury [] Angry [] Fearful [] Anxious [] Often cries [] Exhaustion [] Unable to work [] Unable to attend nondenominational [] Unable to walk/stand [] Unable to read [] Unable to drive [] Unable to eat/drink [] Unable to sleep [] Unable to be with family [] Patient intubated [] Other: Summary Time spent with patient
[2021-02-13] MEDS: propofol 1,000 MG/100 ML INJ 38.1 MG IV (09:33)
[2021-02-13] MEDS: dexamethasone 10 mg/mL INJ 6 MG IVP (09:40)
[2021-02-13] MEDS: fluticasone nasal spray 16gm Btl 1 SPRAY INTRANASAL ×2 (09:41→19:09)
--- NOTE | 2021-02-13 10:25 | PM.PN ---
Subjective Subjective: Interval history: Modesta is sedated on the ventilator. Medications: Reviewed: Yes Vitals/I&O/Wt Last Vital Signs Temp 98.5 F 02/13/21 08:00 Pulse 61 02/13/21 08:47 Resp 16 02/13/21 08:41 BP 121/61 02/13/21 08:00 Pulse Ox 90 02/13/21 08:41 02/12/21 02/13/21 02/13/21 22:59 06:59 14:59 Intake Total 616.255 / 957.891 427.775 / 1385.666 100 / 100 Output Total 1250 / 1250 475 / 1725 Balance -633.745 / -292.109 -47.225 / -339.334 100 / 100 Physical Exam Narrative: EXAM NARRATIVE: General exam intubated and sedated Neck is supple no lymphadenopathy or thyromegaly Cardiovascular regular rate and rhythm, no murmur Lungs coarse breath sounds bilaterally Abdomen with bowel sounds. Hematoma not definable on exam today. Appears gone. demonstrates Bajwa Extremities no cyanosis clubbing or edema, cap refill brisk Urinary Catheter Management^: Bajwa: Cath Placed During This Visit: yes Reason for Continuing Indwelling Catheter: Accurate Measurement of Urinary Output in Critically Ill Patients Urinary Catheter Date of Insertion: 02/07/21 Urinary Catheter Time of Insertion: 10:07 Data : 02/13/21 05:13 02/13/21 05:13 Micro: Microbiology 02/07/21 13:50 Blood Culture - Final Blood NO GROWTH AFTER 5 DAYS 02/07/21 09:22 Blood Culture - Final Blood NO GROWTH AFTER 5 DAYS A&P Assessment and plan (1) Pneumonia due to COVID-19 virus: She completed 3 sessions of proning Discontinue Nimbex on February 12 Wean sedation today with pressure support trial and ABG. Possible extubation today. Continue remdesivir. He has almost completed course. Note that LFTs have increased slightly. Gallbladder ultrasound negative on admission Continue dexamethasone 1 dose of Actemra was given February 07 Continue pulmonary toilet On Rocephin empirically. She completed her course of a azithromycin. MRSA PCR negative. Bacterial antigens are negative. Blood cultures negative to date Norepinephrine as needed for blood pressure support. Likely can discontinue as sedation is weaned. Status: Acute (2) Acute and chronic respiratory failure with hypoxia: Secondary to COVID-19 pneumonia Status: Acute (3) COPD (chronic obstructive pulmonary disease): No evidence of exacerbation Status: Chronic Qualifiers: COPD type: unspecified COPD Qualified Code(s): J44.9 - Chronic obstructive pulmonary disease, unspecified (4) Rhabdomyolysis: Resolved. Statin held. Renal function improving. Status: Acute Qualifiers: Rhabdomyolysis type: non-traumatic Qualified Code(s): M62.82 - Rhabdomyolysis Additional A&P Information Acute kidney injury. Improved Transaminitis. Consistent with Covid. Continue to follow. Statin held. Gallbladder ultrasound no abnormality hypertension. Hold blood pressure medication. Blood pressure currently low. Abdominal wall hematoma. Improved. Lovenox lower dose was resumed.. Hemoglobin drop was relatively minor. Nutrition. Likely extubation today Full code Pepcid for GI prophylaxis Lovenox lower dose for DVT prophylaxis. Attestations Medical Necessity Statement*: Needs continued hospitalization secondary to severe COVID-19 pneumonia requiring mechanical ventilation Critical Care Time: The high probability of a clinically significant, sudden or life threatening deterioration of the patient's [pulmonary, GI] system(s) required my full and direct attention, intervention and personal management. The critical care time is as shown. This time is in addition to time spent performing any reported procedures but includes the following: [x] Data and vital sign review and interpretation [x] Patient assessment, examination and intervention [x] Documentation [x] Medication orders and management Critical Care Time (min): 34 Coding Level of Care Code Acute Serologist for [facility] Diagnoses Pneumonia due to COVID-19 virus U07.1; J12.82 Acute and chronic respiratory failure with hypoxia J96.21 COPD (chronic obstructive pulmonary disease) J44.9 COPD type: unspecified COPD Rhabdomyolysis M62.82 Rhabdomyolysis type: non-traumatic
[2021-02-13] MEDS: docusate sodium 10 mg/mL (5ml) Liq 100 MG PO (12:02)
[2021-02-13] MEDS: dexmedetomidine 400 MCG in sodium chloride 0.9% (100 ml) 100 ML 23.12 MCG IV ×3 (12:22→21:10)
[2021-02-13 12:26] LABS: ABG PCO2 39.6 mmHg (35-45); Blood Gas Allen Test Pos; Blood Gas Operator Identificat CK; Blood Gas Sample Site Radial, left; Blood Gas Sample Type Arterial; HCO3 ABG 30.8 mmol/L (22-26); Oxygen Device VENT; PO2 ABG 59.8 mmHg (80.0-100.0)
--- NOTE | 2021-02-13 13:45 | PC.NUTR ---
Nutrition note: Pt. has been NPO for 6 days, with poor nutrition prior to admission. Propofol stopped today, pt extubated at time of visit. Recommend advance diet as tolerated and monitor for tolerance and refeeding syndrome. See full RD assessment for further details.
[2021-02-13] MEDS: cefTRIAXone 1,000 MG in sodium chloride 0.9% (plus) 50 ML 100 MG IV (19:08)
[2021-02-13] MEDS: sennosides 8.6 mg Tablet PO (20:51)
[2021-02-13] MEDS: enoxaparin 30 mg/0.3 mL Syringe SUBCUT (20:51)
[2021-02-13] MEDS: montelukast sodium 10 mg Tablet PO (20:51)
[2021-02-13] MEDS: metoprolol tartrate 1 mg/1 mL SDV 5 mL 5 MG IVP (21:29)
[2021-02-14] VITALS (112 sets, daily range): BP systolic 112–199; BP diastolic 73–127; PULSE 89–879; RESP 13–28; TEMP 36.6–37.3; O2SAT 86–98
--- NOTE | 2021-02-14 00:47 | PC.NURSE ---
Shift Note Frequent safety and comfort rounds continue. Orders and/or nursing care completed as indicated. Patient monitored for response to intervention and treatment(s). Education provided includes swallow precautions when taken pills, medications, situation, orientation, fall safety. Patient does not seem to comprehend education provided, she only repeats help me up. Patient repositioned and other comfort measures provided. Patient pulled out peripheral IV, attempts to pull out central line, pulls off covers, attempts to pull self out of bed by pulling at bed rails. Diversional activities attempted without success. GTT's titrated per protocol, precedex is only titratable gtt at this time. Bajwa patent and draining. Will continue to monitor.
[2021-02-14] MEDS: dexmedetomidine 400 MCG in sodium chloride 0.9% (100 ml) 100 ML 23.12 MCG IV ×2 (01:19→06:21)
[2021-02-14] MEDS: ipratropium-albuterol 3 mL Neb INHALATION ×4 (03:41→20:32)
[2021-02-14 05:22] LABS: Basophils % 0.1 %; Eosinophils % 0.1 %; Hematocrit 35.2 % (37.0-47.0); Hemoglobin 11.5 g/dL (11.5-15.3); Lymphocytes # 2.6 10^3/uL (0.8-4.8); Lymphocytes % 18.9 %; Mean Corpuscular HGB Conc 32.7 g/dL (30.0-36.0); Mean Corpuscular Hemoglobin 28.5 pg (28.0-34.0); Mean Corpuscular Volume 87.1 fl (81-99); Mean Platelet Volume 10.5 fL (7.4-10.4); Monocytes # 1.3 10^3/uL (0.2-0.9); Monocytes % 9.1 %; Neutrophils % 56.9 %; Nucleated Red Blood Cells # 0.1 /100WBC; Nucleated Red Blood Cells % 0.4 %; Platelet Count 346 10^3/cmm (130-400); Red Blood Count 4.04 10^6/uL (4.1-5.3); Red Cell Distribution Width 14.3 % (12.1-15.1); White Blood Count 13.9 10^3/uL (4.0-10.0)
[2021-02-14] MEDS: famotidine 20 mg Tablet PO (05:31)
[2021-02-14 06:05] LABS: Alanine Aminotransferase 329 U/L (0-33); Albumin Level 3.3 g/dL (3.5-5.2); Alkaline Phosphatase 115 IU/L (35-105); Anion Gap 12.1 (5-19); Aspartate Amino Transferase 419 U/L (0-32); Blood Urea Nitrogen 33 mg/dL (8-23); Carbon Dioxide 31 mmol/L (22-29); Chloride 104 mmol/L (98-107); Globulin 2.5 g/dL (1.3-4.6); Glomerular Filtration Rate 83.2 mL/min (90-130); Glucose 75 mg/dL (65-115); Osmolality Calculated 302 mOsm/kg (285-295); Potassium 4.1 mmol/L (3.5-5.1); Sodium 143 mmol/L (136-145); Total Bilirubin 0.9 mg/dL (0.15-1.2); Total Protein 5.8 g/dL (6.6-8.7)
[2021-02-14 06:54] LABS: Slide Review Slide Review Perform
[2021-02-14] MEDS: docusate sodium 10 mg/mL (5ml) Liq 100 MG PO ×2 (09:01→18:26)
[2021-02-14] MEDS: fluticasone nasal spray 16gm Btl 1 SPRAY INTRANASAL ×2 (09:01→18:26)
[2021-02-14] MEDS: dexamethasone 10 mg/mL INJ 6 MG IVP (09:15)
[2021-02-14] MEDS: metoprolol tartrate 1 mg/1 mL SDV 5 mL 5 MG IVP ×3 (09:22→23:56)
--- NOTE | 2021-02-14 09:32 | PC.NURSE ---
Shift Note Frequent safety and comfort rounds continue. Orders and/or nursing care completed as indicated. Patient monitored for response to intervention and treatment(s). Education provided includes[monitor oxygen levels and orientating]. Patient and/or enrollment eligibility representative [verbally stated they understood]. Will continue to monitor. Received bed side shift report from off going nurse. Pt's plan of care reviewed. Pt is currently resting in bed. Respirations are tachypneic in the 20's. No s/sx of distress noted. Pt is alert but not oriented. Pt is able to answer questions and follow commands. Pt continuously moans out and says help me repeatedly. But when asked if she was ok she would respond with yes. Precedex gtt stopped per doctors wishes. Pt is currently in bilateral wrist restraints. Family was called and updated on pt's current status and plan of care. Bed in lowest and locked position, call light within reach, x's 3 rails up. Will continue to monitor pt.
--- NOTE | 2021-02-14 10:18 | PC.SOCIAL ---
IMM Update Discussed patient's medicare rights with pt's grandson, Vladimir. Verbalized understanding. Initialed,timed, date copy in pt's chart.
[2021-02-14] MEDS: amlodipine 5 mg Tablet PO ×2 (10:40→20:02)
--- NOTE | 2021-02-14 11:26 | PM.PN ---
Subjective Subjective: Interval history: Modesta is awake and can answer few questions. She seems somewhat confused. Medications: Reviewed: Yes Vitals/I&O/Wt Last Vital Signs Temp 98.0 F 02/14/21 09:15 Pulse 92 02/14/21 10:15 Resp 19 H 02/14/21 10:15 BP 155/90 02/14/21 10:15 Pulse Ox 94 02/14/21 10:15 02/13/21 02/14/21 02/14/21 22:59 06:59 14:59 Intake Total 180.973 / 765.814 199.948 / 965.762 221.701 / 221.701 Output Total 1950 / 1949 1125 / 3075 Balance -1769.027 / -1184.186 -925.052 / -2109.238 221.701 / 221.701 Physical Exam Narrative: EXAM NARRATIVE: General exam intubated and sedated Neck is supple no lymphadenopathy or thyromegaly Cardiovascular regular rate and rhythm, no murmur Lungs coarse breath sounds bilaterally Abdomen with bowel sounds. Hematoma not definable on exam today. Appears gone. demonstrates Bajwa Extremities no cyanosis clubbing or edema, cap refill brisk Urinary Catheter Management^: Bajwa: Cath Placed During This Visit: yes Reason for Continuing Indwelling Catheter: Accurate Measurement of Urinary Output in Critically Ill Patients Urinary Catheter Date of Insertion: 02/07/21 Urinary Catheter Time of Insertion: 10:07 Data : 02/14/21 04:11 02/14/21 04:11 A&P Assessment and plan (1) Pneumonia due to COVID-19 virus: She completed 3 sessions of proning Discontinue Nimbex on February 12 Extubated February 13 Currently on 50 L flow 65% FiO2 Remdesivir has been completed. Note that LFTs have increased slightly. Gallbladder ultrasound negative on admission. Continue to follow Continue dexamethasone 1 dose of Actemra was given February 07 Continue pulmonary toilet On Rocephin empirically. She completed her course of a azithromycin. Discontinue Rocephin today. No evidence of bacterial infection. MRSA PCR negative. Bacterial antigens are negative. Blood cultures negative to date Norepinephrine as needed for blood pressure support. Currently discontinued Status: Acute (2) Acute and chronic respiratory failure with hypoxia: Secondary to COVID-19 pneumonia Status: Acute (3) COPD (chronic obstructive pulmonary disease): No evidence of exacerbation Status: Chronic Qualifiers: COPD type: unspecified COPD Qualified Code(s): J44.9 - Chronic obstructive pulmonary disease, unspecified (4) Rhabdomyolysis: Resolved. Statin held. Renal function improving. Status: Acute Qualifiers: Rhabdomyolysis type: non-traumatic Qualified Code(s): M62.82 - Rhabdomyolysis Additional A&P Information Acute kidney injury. Improved Transaminitis. Consistent with Covid. Continue to follow. Statin held. Gallbladder ultrasound no abnormality hypertension. Amlodipine. 5 mg daily. Abdominal wall hematoma. Improved. Lovenox lower dose was resumed.. Hemoglobin drop was relatively minor. Nutrition. Likely extubation today Full code Pepcid for GI prophylaxis Lovenox lower dose for DVT prophylaxis. Attestations Medical Necessity Statement*: Continued hospitalization secondary to severe COVID-19 pneumonia requiring high flow oxygen. Critical Care Time: The high probability of a clinically significant, sudden or life threatening deterioration of the patient's [pulmonary] system(s) required my full and direct attention, intervention and personal management. The critical care time is as shown. This time is in addition to time spent performing any reported procedures but includes the following: [x] Data and vital sign review and interpretation [x] Patient assessment, examination and intervention [x] Documentation [x] Medication orders and management Critical Care Time (min): 31 Coding Level of Care Code Acute Teacher Physically Impaired for [facility] Diagnoses Pneumonia due to COVID-19 virus U07.1; J12.82 Acute and chronic respiratory failure with hypoxia J96.21 COPD (chronic obstructive pulmonary disease) J44.9 COPD type: unspecified COPD Rhabdomyolysis M62.82 Rhabdomyolysis type: non-traumatic
[2021-02-14] MEDS: FUROsemide 10 mg/mL SDV 2mL 20 MG IVP (11:57)
[2021-02-14] MEDS: oxyCODONE 5 mg IR Tab/Cap PO ×2 (11:57→18:24)
--- NOTE | 2021-02-14 14:38 | PC.RESP ---
RT Shift Note Frequent safety and respiratory rounds continue. Orders completed as indicated. Patient monitored pre and post treatments throughout shift. Patient [Did.] tolerate treatments appropriately. Condition [.DidNotChange]. Patient and/or client relations representative educated on respiratory treatment and medications. Patient and/or client relations representative [unable to comprehend]. Will continue to monitor patient progress.
[2021-02-14] MEDS: montelukast sodium 10 mg Tablet PO (20:01)
[2021-02-14] MEDS: sennosides 8.6 mg Tablet PO (20:02)
[2021-02-14] MEDS: enoxaparin 30 mg/0.3 mL Syringe SUBCUT (20:02)
[2021-02-14] MEDS: nitroglycerin 1 gm/inch oint Pkt 1 INCH TOPICAL (20:02)
[2021-02-14] MEDS: fentaNYL 50 mcg/mL INJ 2mL 25 MCG IVP (20:02)
[2021-02-15] VITALS (55 sets, daily range): BP systolic 117–185; BP diastolic 68–106; PULSE 86–127; RESP 14–26; TEMP 36.8–37.2; O2SAT 89–97
[2021-02-15] MEDS: nitroglycerin 1 gm/inch oint Pkt 1 INCH TOPICAL ×4 (01:45→20:51)
[2021-02-15] MEDS: ipratropium-albuterol 3 mL Neb INHALATION ×4 (03:43→20:55)
--- NOTE | 2021-02-15 04:24 | PC.NURSE ---
Addendum entered by Jazmine Chacko RN 02/15/21 04:54: Patient hypertensive at beginning of shift, Dr. Estrada notified, see new orders. Precedex remained off throughout the shift. Original Note: Shift Note Frequent safety and comfort rounds continue. Orders and/or nursing care completed as indicated. Patient monitored for response to intervention and treatment(s). Education provided includes position changes, medications with side effects, fall safety, oxygen safety. Patient moans yes to understanding education provided. ROM and bed exercises provided, patient able to lift arms above head with little assistance but demonstrates mod to severe lower extremity weakness and unable to hold knees up with heal sides. Patient mental status showing improvement and able to state both first and last name this morning. Patient continuously moans but says no this is not always in response to being pain. PRN pain medication given once throughout the shift, turns and repositioning seems to alleviate most pain symptoms. Patient did not get any sleep throughout the night. Sips of water with pills without wet cough. Will continue to monitor.
[2021-02-15] MEDS: famotidine 20 mg Tablet PO (05:38)
--- NOTE | 2021-02-15 06:00 | USCV_ITS ---
Modesta Medel Age: 70 Gender: F : 1950 Exam Date: 02/15/2021 06:21 Ordering Phys: Guanaco Zamudio MD Technologist: Ana Ceron [place] [facility] [place]: COVID WITH SOB BP: 182 / 88 HR: 120 Rhythm: Sinus Technical Quality: Very technically difficult study MEASUREMENTS (Male / Female) Normal Values 2D ECHO LVOT Diameter 2.0 cm LA Diameter 3.1 cm Aorta at Sinotubular Diameter 2.3 cm DOPPLER AV Peak Velocity 194.0 cm/s LVOT Peak Velocity 147.0 cm/s AV Area Cont Eq vti 2.5 cm squared AV Area Cont Eq pk 2.4 cm squared MV Area PHT 4.1 cm squared MV E' Velocity 61.0 cm/s Mitral E to MV E' Ratio 9.0 Mitral E to LV E' Lateral Ratio 8.5 Mitral E to LV E' Septal Ratio 9.6 TR Peak Velocity 164.6 cm/s TR Peak Gradient 10.8 mmHg TR Mean Velocity 94.6 cm/s TR Mean Gradient 6.4 mmHg TR Velocity Time Integral 35.3 cm TV Peak E Velocity 98.0 cm/s Right Atrial Pressure 15.0 mmHg Pulmonary Artery Systolic Pressu 25.8 mmHg PV Peak Velocity 170.0 cm/s RV Acceleration Time 0.1 s RV Ejection Time 0.3 s RV AcT/ET 0.5 FINDINGS Left Ventricle Right Ventricle Right Atrium Left Atrium Mitral Valve Aortic Valve Tricuspid Valve Pulmonic Valve Pericardium Aorta CONCLUSIONS Very difficult study to interpret due to suboptimal image quality 1-Left ventricle ejection fraction grossly appeared to be normal estimated ejection fraction at least 60%. Cannot comment on wall motion 2-No valve clearly visualized 3-There is no pericardial effusion. 4-There are no prior echocardiogram studies to compare. Bettina Mcgraw MD (Electronically Signed) Final Date: 15 February 2021 15:50 S
[2021-02-15 06:50] LABS: Basophils % 0.1 %; Eosinophils % 0.1 %; Hematocrit 37.9 % (37.0-47.0); Lymphocytes # 2.1 10^3/uL (0.8-4.8); Lymphocytes % 11.3 %; Mean Corpuscular HGB Conc 31.7 g/dL (30.0-36.0); Mean Corpuscular Volume 88.3 fl (81-99); Mean Platelet Volume 10.2 fL (7.4-10.4); Monocytes # 2.1 10^3/uL (0.2-0.9); Monocytes % 11.7 %; Neutrophils # 11.46 10^3/uL (1.8-7.7); Neutrophils % 62.9 %; Nucleated Red Blood Cells % 0.2 %; Platelet Count 391 10^3/cmm (130-400); Red Blood Count 4.29 10^6/uL (4.1-5.3); Red Cell Distribution Width 14.8 % (12.1-15.1); White Blood Count 18.2 10^3/uL (4.0-10.0)
--- NOTE | 2021-02-15 07:00 | XR_ITS ---
WS: [id number] Portable AP semiupright chest, 02/15/2021 Clinical Data: follow up pneumonia Comparison: Portable chest, 02/12/2021. Findings: The endotracheal tube and nasogastric tube have been removed. The right internal jugular ve nous catheter remains in position. Bilateral pulmonary opacities are still visible and unchanged. Mon itor leads are on the chest wall. There are multiple metallic fragments adjacent to the left diaphrag m. XR/XR chest 1V portable [id number] Impression: 1. No change in bilateral pulmonary opacities. 2. Removal of endotracheal tube and nasogastric tube.
[2021-02-15 07:23] LABS: Alanine Aminotransferase 387 U/L (0-33); Albumin Level 3.5 g/dL (3.5-5.2); Alkaline Phosphatase 126 IU/L (35-105); Anion Gap 17.7 (5-19); Aspartate Amino Transferase 355 U/L (0-32); Blood Urea Nitrogen 33 mg/dL (8-23); Calcium 8.6 mg/dL (8.5-10.5); Carbon Dioxide 29 mmol/L (22-29); Chloride 101 mmol/L (98-107); Globulin 2.6 g/dL (1.3-4.6); Glomerular Filtration Rate 83.2 mL/min (90-130); Glucose 111 mg/dL (65-115); Osmolality Calculated 304 mOsm/kg (285-295); Potassium 4.7 mmol/L (3.5-5.1); Sodium 143 mmol/L (136-145); Total Bilirubin 1.5 mg/dL (0.15-1.2); Total Protein 6.1 g/dL (6.6-8.7)
[2021-02-15 08:05] LABS: Slide Review Slide Review Perform
[2021-02-15] MEDS: dexamethasone 10 mg/mL INJ 6 MG IVP (08:51)
[2021-02-15] MEDS: amlodipine 10 mg Tablet PO (08:52)
[2021-02-15] MEDS: docusate sodium 10 mg/mL (5ml) Liq 100 MG PO ×2 (08:52→17:14)
--- NOTE | 2021-02-15 09:05 | CT_ITS ---
WS: [id number] CT ABDOMEN AND PELVIS WITH CONTRAST HISTORY: abdominal pain, increase LFT's TECHNIQUE: Imaging performed of the abdomen and pelvis with IV contrast. Single phase imaging of the abdomen. Coronal and sagittal reformats are submitted. All CT scans at [facility] use at [address] one of these dose optimization techniques: automated exposure control; mA and/or kV adjustment per patient size (includes targeted exams where dose is matched to clinical indication); or iterative re construction. IV CONTRAST: Omnipaque 300; 95 mL IV. Oral contrast: No DLP: 1981.38 mGy.cm COMPARISON: None available. Lower thorax: Bilateral consolidations and groundglass opacifications at the lung bases. Heart is nor mal size. No hiatal hernia. Liver/biliary system: Normal size liver. No bile duct dilatation. Gallbladder: Normal. No gallstones or wall thickening. No pericholecystic fluid. Pancreas: Normal size pancreas and pancreatic duct. No adjacent inflammation. Spleen: Normal size spleen. No mass or infarct. Adrenal glands: Normal. Right kidney: Normal size. 1.0 cm hypodensity from the posterior mid kidney is probably a cyst. Left kidney: Normal size kidney. Cortical 5 mm hypodensity is too small to characterize. No obstructi on. Aorta: Normal. Lymphadenopathy: None. Free fluid: None. GI tract: Mild amount of increased air throughout the GI tract. No mucosal thickening or pericolonic inflammation. The appendix is normal. No significant diverticular disease. Abdominal wall: There is a large RIGHT rectus muscle hematoma extending over length of 20 cm x 9.0 x 4.2 cm. No active extravasation. Pelvis: Bajwa catheter in a nondistended bladder. No free fluid or adenopathy. Bones: Unremarkable. CT/CT abdomen pelvis w con* [id number] IMPRESSION: 1. Large RIGHT lateral rectus sheath hematoma measuring 20.0 x 9.0 x 4.2 cm. T his was previously described on a prior ultrasound of 02/08/2021. Difficult to e valuate for change in size comparing the ultrasound to the CT. No active extrav asation is evident. 2. Bilateral lung base opacifications likely due to Covid 19. 3. No bile duct dilatation. 4. Negative gallbladder. 5. No liver enlargement. 6. Mild air distention of the colon without inflammation or wall thickening.
[2021-02-15] MEDS: fluticasone nasal spray 16gm Btl 1 SPRAY INTRANASAL ×2 (09:13→17:16)
[2021-02-15 10:21] LABS: Lipase 87 U/L (13-60)
[2021-02-15] MEDS: iohexol 300 mg/mL 100 mL Btl IV (11:04)
[2021-02-15] MEDS: fluconazole premix 200 MG/100 ML PREMIX 100 MG IV (11:17)
--- NOTE | 2021-02-15 11:26 | PM.PN ---
Subjective Subjective: Interval history: Modesta Rafael some intermittently while I am talking with her. She seems to indicate she has some pain in her epigastric area. She was just taken off Precedex. Medications: Reviewed: Yes Vitals/I&O/Wt Last Vital Signs Temp 98.3 F 02/15/21 04:00 Pulse 123 H 02/15/21 09:11 Resp 22 H 02/15/21 09:09 BP 165/92 02/15/21 06:15 Pulse Ox 95 02/15/21 09:09 02/14/21 02/15/21 02/15/21 22:59 06:59 14:59 Intake Total 125 / 346.701 Output Total 2650 / 2650 Balance -2650 / -2428.299 125 / -2303.299 Physical Exam Narrative: EXAM NARRATIVE: General exam able to communicate Neck is supple no lymphadenopathy or thyromegaly Cardiovascular regular rate and rhythm, no murmur Lungs coarse breath sounds bilaterally Abdomen with bowel sounds. Hematoma not definable on exam today. Appears gone. demonstrates Bajwa Extremities no cyanosis clubbing or edema, cap refill brisk Urinary Catheter Management^: Bajwa: Cath Placed During This Visit: yes Reason for Continuing Indwelling Catheter: Accurate Measurement of Urinary Output in Critically Ill Patients Urinary Catheter Date of Insertion: 02/07/21 Urinary Catheter Time of Insertion: 10:07 Data : 02/15/21 06:33 02/15/21 06:33 A&P Assessment and plan (1) Pneumonia due to COVID-19 virus: She completed 3 sessions of proning Discontinue Nimbex on February 12 Extubated February 13 Currently on 40 L flow 60% FiO2 Remdesivir has been completed. Note that LFTs have increased slightly. Gallbladder ultrasound negative on admission. Bilirubin increased slightly. Check CT abdomen and pelvis with contrast. Continue to follow. Lipase checked today and 87. Continue dexamethasone 1 dose of Actemra was given February 07 Continue pulmonary toilet Was on Rocephin and azithromycin. These have been discontinued as no evidence of bacterial infection. MRSA PCR negative. Bacterial antigens are negative. Blood cultures negative to date Sputum culture rare yeast was noted. Will start fluconazole 200 mg every 24 hours Norepinephrine was used as needed for blood pressure support. Currently discontinued Status: Acute (2) Acute and chronic respiratory failure with hypoxia: Secondary to COVID-19 pneumonia Status: Acute (3) COPD (chronic obstructive pulmonary disease): No evidence of exacerbation Status: Chronic Qualifiers: COPD type: unspecified COPD Qualified Code(s): J44.9 - Chronic obstructive pulmonary disease, unspecified (4) Rhabdomyolysis: Resolved. Statin held. Renal function improving. Status: Acute Qualifiers: Rhabdomyolysis type: non-traumatic Qualified Code(s): M62.82 - Rhabdomyolysis Additional A&P Information Acute encephalopathy. May be secondary to Covid, or possibly some effect from Precedex as well. Try to wean Precedex down and off. Nursing is have turned it off this morning and we will see how she does. Acute kidney injury. Improved Transaminitis. Consistent with Covid. Continue to follow. Statin held. Gallbladder ultrasound no abnormality. Check CT abdomen and pelvis. hypertension. Amlodipine. 5 mg daily. Add metoprolol. Abdominal wall hematoma. Improved. Lovenox lower dose was resumed.. Hemoglobin drop was relatively minor. Elevated BNP. Awaiting echocardiogram. Full code Pepcid for GI prophylaxis Lovenox lower dose for DVT prophylaxis. Attestations Medical Necessity Statement*: Needs continued hospitalization secondary to severe COVID-19 pneumonia requiring high flow oxygen. Critical Care Time: Critical Care Time (min): 31 Other Attestations: The high probability of a clinically significant, sudden or life threatening deterioration of the patient's [pulmonary, hepatic] system(s) required my full and direct attention, intervention and personal management. The critical care time is as shown. This time is in addition to time spent performing any reported procedures but includes the following: [x] Data and vital sign review and interpretation [x] Patient assessment, examination and intervention [x] Documentation [x] Medication orders and management Coding Level of Care Code Acute Instruction Librarian for [facility] Diagnoses Pneumonia due to COVID-19 virus U07.1; J12.82 Acute and chronic respiratory failure with hypoxia J96.21 COPD (chronic obstructive pulmonary disease) J44.9 COPD type: unspecified COPD Rhabdomyolysis M62.82 Rhabdomyolysis type: non-traumatic
--- NOTE | 2021-02-15 11:53 | PC.NUTR ---
Nutrition Note: Propofol @ 27.22 ml/hr provides 862 kcals. Current Propofol + TF of [employer] @ 15 ml/hr would provide 1259 kcals or 70% estimated kcal needs and 22.5 grams protein or 32% est. protein needs. Recommend consideration of increasing TF to 20 ml/hr with fresh water flushes 120 q4h which will provide 1438 kcal or 80% estimated calorie needs and 30 grams protein or 43% est. protein needs and 1097 ml fluid.
[2021-02-15] MEDS: metoprolol tartrate 25 mg Tablet 12.5 MG PO (13:19)
--- NOTE | 2021-02-15 18:24 | PC.NURSE ---
Shift Note Frequent safety and comfort rounds continue. Orders and/or nursing care completed as indicated. Patient monitored for response to intervention and treatment(s). Education provided includes[patient status and update, CT abdomen done]. Patient and/or credit and collections representative [receptive to learning]. Patient can state her name and that she is in [place] but continue to moan constantly. Patient denies any pain. Patient is currently on 10L high flow NC. Will continue to monitor.
[2021-02-15] MEDS: enoxaparin 30 mg/0.3 mL Syringe SUBCUT (20:51)
[2021-02-15] MEDS: sennosides 8.6 mg Tablet PO (20:52)
[2021-02-15] MEDS: montelukast sodium 10 mg Tablet PO (20:52)
[2021-02-15] MEDS: metoprolol tartrate 25 mg Tablet PO (20:54)
[2021-02-16] VITALS (80 sets, daily range): BP systolic 95–168; BP diastolic 63–97; PULSE 75–114; RESP 14–33; TEMP 36.3–37.2; O2SAT 78–97
[2021-02-16] MEDS: ipratropium-albuterol 3 mL Neb INHALATION ×4 (03:34→20:56)
[2021-02-16] MEDS: nitroglycerin 1 gm/inch oint Pkt 1 INCH TOPICAL ×4 (03:39→20:57)
[2021-02-16 04:55] LABS: Basophils # 0.1 10^3/uL (0.0-0.1); Basophils % 0.4 %; Eosinophils # 0.2 10^3/uL (0.0-0.8); Eosinophils % 0.8 %; Hematocrit 37.3 % (37.0-47.0); Hemoglobin 11.7 g/dL (11.5-15.3); Lymphocytes % 11.3 %; Mean Corpuscular HGB Conc 31.4 g/dL (30.0-36.0); Mean Corpuscular Hemoglobin 28.5 pg (28.0-34.0); Mean Platelet Volume 10.7 fL (7.4-10.4); Monocytes # 1.9 10^3/uL (0.2-0.9); Monocytes % 10.8 %; Neutrophils # 11.92 10^3/uL (1.8-7.7); Neutrophils % 66.4 %; Nucleated Red Blood Cells % 0.1 %; Platelet Count 432 10^3/cmm (130-400); Red Cell Distribution Width 15.3 % (12.1-15.1)
[2021-02-16] MEDS: famotidine 20 mg Tablet PO (05:11)
[2021-02-16 05:37] LABS: Procalcitonin 0.16 ng/mL (0-0.5)
[2021-02-16 05:51] LABS: Alanine Aminotransferase 305 U/L (0-33); Albumin Level 3.4 g/dL (3.5-5.2); Alkaline Phosphatase 124 IU/L (35-105); Anion Gap 16.1 (5-19); Aspartate Amino Transferase 192 U/L (0-32); Blood Urea Nitrogen 30 mg/dL (8-23); Calcium 8.9 mg/dL (8.5-10.5); Carbon Dioxide 29 mmol/L (22-29); Chloride 102 mmol/L (98-107); Globulin 2.3 g/dL (1.3-4.6); Glomerular Filtration Rate 71.3 mL/min (90-130); Glucose 105 mg/dL (65-115); Osmolality Calculated 303 mOsm/kg (285-295); Potassium 4.1 mmol/L (3.5-5.1); Sodium 143 mmol/L (136-145); Total Bilirubin 1.5 mg/dL (0.15-1.2); Total Protein 5.7 g/dL (6.6-8.7)
[2021-02-16 06:19] LABS: Slide Review Slide Review Perform
--- NOTE | 2021-02-16 07:00 | PC.NURSE ---
Addendum entered by Donald Mohr RN 02/16/21 07:17: Urine output was very low for the whole shift. I had a total of 175 mL. The patient remains alert and oriented to self and place. She was able to burr picker a cup on her own today and drink about 200 mL of water. Her vitals were within normal parameters except for she had one episode where her oxygenation went down to 84%, but she was not systematic. The HiFLO was titrated from 10 liters to 12 liters. Original Note: Shift Note Frequent safety and comfort rounds continue. Orders and/or nursing care completed as indicated. Patient monitored for response to intervention and treatment(s). Education provided includes[]. Patient and/or employer relations representative [ResponseToTeaching]. Will continue to monitor.
[2021-02-16] MEDS: amlodipine 10 mg Tablet PO (08:33)
[2021-02-16] MEDS: metoprolol tartrate 25 mg Tablet PO ×2 (08:33→20:57)
[2021-02-16] MEDS: fluticasone nasal spray 16gm Btl 1 SPRAY INTRANASAL ×2 (08:34→17:23)
[2021-02-16] MEDS: docusate sodium 10 mg/mL (5ml) Liq 100 MG PO ×2 (08:34→17:23)
[2021-02-16] MEDS: dexamethasone 10 mg/mL INJ 6 MG IVP (08:34)
--- NOTE | 2021-02-16 09:34 | PC.NURSE ---
Nurse assisted patient to sit on the side of the bed after breakfast. Patient only tolerated about 4 minutes sitting up before she was too tired
[2021-02-16] MEDS: fluconazole premix 200 MG/100 ML PREMIX 100 MG IV (11:04)
--- NOTE | 2021-02-16 14:28 | PM.PN ---
Subjective Subjective: Interval history: Patient was seen and examined this morning. She is alert and awake,currently saturating well on 12Ls HFONC. Medications: Reviewed: Yes Vitals/I&O/Wt Last Vital Signs Temp 97.4 F L 02/16/21 08:30 Pulse 83 02/16/21 09:32 Resp 20 H 02/16/21 09:32 BP 118/82 02/16/21 09:30 Pulse Ox 90 02/16/21 09:32 02/15/21 02/16/21 02/16/21 22:59 06:59 14:59 Intake Total 200 / 300 Output Total 850 / 850 175 / 1025 Balance -850 / -750 25 / -725 Physical Exam Narrative: EXAM NARRATIVE: Alert and awake HENMT: COMMON NORMALS: normocephalic and atraumatic HEAD & SCALP: normocephalic and atraumatic Resp: OTHER: Diminished air entry B/L Cardio: COMMON NORMALS: regular rate, regular rhythm, S1 normal heart sound present, S2 normal heart sound present, No gallops present (Cardio), No murmurs present (Cardio), No rub (Cardio) and Peripheral pulses 2+ throughout RATE: regular rate RHYTHM: regular rhythm HEART SOUNDS: S1 normal heart sound present and S2 normal heart sound present PERIPHERAL PULSES: Peripheral pulses 2+ throughout GI: COMMON NORMALS: Normal to inspection, nondistended, normoactive bowel sounds present, Soft to palpation, non-tender, No hepatosplenomegaly present and no masses AUSCULTATION: Yes normoactive bowel sounds PALPATION: Yes Soft to palpation and Yes No hepatosplenomegaly present RECTAL EXAM: deferred Extremity: COMMON NORMALS: no clubbing, cyanosis or edema and no pedal edema Urinary Catheter Management^: Bajwa: Cath Placed During This Visit: yes Reason for Continuing Indwelling Catheter: Accurate Measurement of Urinary Output in Critically Ill Patients Urinary Catheter Date of Insertion: 02/07/21 Urinary Catheter Time of Insertion: 10:07 Data : 02/16/21 04:30 02/16/21 04:30 A&P Assessment and plan (1) Pneumonia due to COVID-19 virus: She completed 3 sessions of proning Discontinue Nimbex on February 12 Extubated February 13 Currently on 12Ls HFNC Remdesivir has been completed. Note that LFTs have increased slightly. Gallbladder ultrasound negative on admission. Bilirubin increased slightly. CT abdomen and pelvis with contrast: No acute findings except for the Large RIGHT lateral rectus sheath hematoma measuring 20.0 x 9.0 x 4.2 cm. This was previously described on a prior ultrasound of 02/08/2021. H/H is stable. Continue dexamethasone 1 dose of Actemra was given February 07 Continue pulmonary toilet Was on Rocephin and azithromycin. These have been discontinued as no evidence of bacterial infection. MRSA PCR negative. Bacterial antigens are negative. Blood cultures negative to date Sputum culture rare yeast was noted. Will start fluconazole 200 mg every 24 hours Norepinephrine was used as needed for blood pressure support. Currently discontinued Status: Acute (2) Acute and chronic respiratory failure with hypoxia: Secondary to COVID-19 pneumonia Status: Acute (3) COPD (chronic obstructive pulmonary disease): No evidence of exacerbation Status: Chronic Qualifiers: COPD type: unspecified COPD Qualified Code(s): J44.9 - Chronic obstructive pulmonary disease, unspecified (4) Rhabdomyolysis: Resolved. Statin held. Renal function improving. Status: Acute Qualifiers: Rhabdomyolysis type: non-traumatic Qualified Code(s): M62.82 - Rhabdomyolysis Additional A&P Information Acute encephalopathy. May be secondary to Covid, or possibly some effect from Precedex as well. Try to wean Precedex down and off. Nursing is have turned it off this morning and we will see how she does. Acute kidney injury. Improved Transaminitis. Consistent with Covid. Continue to follow. Statin held. Gallbladder ultrasound no abnormality. Check CT abdomen and pelvis. hypertension. Amlodipine. 5 mg daily. Add metoprolol. Abdominal wall hematoma. Improved. Lovenox lower dose was resumed.. Hemoglobin drop was relatively minor. Elevated BNP. Awaiting echocardiogram. Full code Pepcid for GI prophylaxis Lovenox lower dose for DVT prophylaxis. Attestations Medical Necessity Statement*: Patient needs to be in hospital for the management of COVID PNA Coding Level of Care Code Acute Customer Counter Associate for [facility] Diagnoses Pneumonia due to COVID-19 virus U07.1; J12.82 Acute and chronic respiratory failure with hypoxia J96.21 COPD (chronic obstructive pulmonary disease) J44.9 COPD type: unspecified COPD Rhabdomyolysis M62.82 Rhabdomyolysis type: non-traumatic
--- NOTE | 2021-02-16 15:04 | PC.RESP ---
RT Shift Note Frequent safety and respiratory rounds continue. Orders completed as indicated. Patient monitored pre and post treatments throughout shift. Patient [Did.] tolerate treatments appropriately. Condition .DidNotChange]. Patient and/or business services sales representative educated on respiratory treatment and medications. Patient and/or business services sales representative [reinforcement needed. Will continue to monitor patient progress.
--- NOTE | 2021-02-16 16:13 | PC.SOCIAL ---
IMM Updated Updated pt's grandsonVladimir, on Pg 2 IMM. No questions voiced. Initialed, dated, & timed copy in chart.
--- NOTE | 2021-02-16 19:12 | PC.NURSE ---
Nurse assisted patient to standing at bedside. Patient tolerated standing and intermittently walking in place for about 5 minutes. Nurse changed linens during this time. When patient returned to bed after standing and exercise, saturation improved. Stayed at about 97% for the next half hour before decreasing down to the low 90's where it has been for most of the day
--- NOTE | 2021-02-16 19:15 | PC.NURSE ---
Shift Note Frequent safety and comfort rounds continue. Orders and/or nursing care completed as indicated. Patient monitored for response to intervention and treatment(s). Education provided to family includes treatment plan. Patient had an uneventful shift. rested in bed most of day but is showing some progress with tolerating more activity, including standing at bedside. Family given frequent updates.
[2021-02-16] MEDS: enoxaparin 30 mg/0.3 mL Syringe SUBCUT (20:57)
[2021-02-16] MEDS: sennosides 8.6 mg Tablet PO (20:57)
[2021-02-16] MEDS: montelukast sodium 10 mg Tablet PO (20:57)
[2021-02-17] VITALS (107 sets, daily range): BP systolic 89–134; BP diastolic 48–82; PULSE 67–102; RESP 13–44; TEMP 36.4–36.9; O2SAT 80–98
[2021-02-17] MEDS: nitroglycerin 1 gm/inch oint Pkt 1 INCH TOPICAL ×3 (01:51→21:09)
[2021-02-17] MEDS: ipratropium-albuterol 3 mL Neb INHALATION ×4 (03:01→20:11)
[2021-02-17 05:08] LABS: Alanine Aminotransferase 228 U/L (0-33); Albumin Level 3.3 g/dL (3.5-5.2); Alkaline Phosphatase 112 IU/L (35-105); Aspartate Amino Transferase 129 U/L (0-32); Blood Urea Nitrogen 38 mg/dL (8-23); Calcium 8.8 mg/dL (8.5-10.5); Carbon Dioxide 30 mmol/L (22-29); Chloride 103 mmol/L (98-107); Globulin 2.2 g/dL (1.3-4.6); Glomerular Filtration Rate 71.3 mL/min (90-130); Glucose 96 mg/dL (65-115); Osmolality Calculated 305 mOsm/kg (285-295); Sodium 143 mmol/L (136-145); Total Bilirubin 1.5 mg/dL (0.15-1.2); Total Protein 5.5 g/dL (6.6-8.7)
[2021-02-17] MEDS: famotidine 20 mg Tablet PO (05:35)
[2021-02-17] MEDS: fluticasone nasal spray 16gm Btl 1 SPRAY INTRANASAL ×2 (09:27→17:15)
[2021-02-17] MEDS: docusate sodium 10 mg/mL (5ml) Liq 100 MG PO ×2 (09:27→17:15)
[2021-02-17] MEDS: dexamethasone 10 mg/mL INJ 6 MG IVP (09:28)
[2021-02-17] MEDS: FUROsemide 10 mg/mL SDV 2mL 20 MG IVP (09:28)
[2021-02-17] MEDS: amlodipine 10 mg Tablet PO (09:28)
[2021-02-17] MEDS: metoprolol tartrate 25 mg Tablet PO (09:28)
--- NOTE | 2021-02-17 11:42 | PM.PN ---
Subjective Subjective: Interval history: Patient was seen and examined this morning. Wants to try regular diet, says that the legs are hurting.She has agreed to get out of bed and sit in chair for some time. Medications: Reviewed: Yes Vitals/I&O/Wt Last Vital Signs Temp 97.9 F 02/17/21 08:30 Pulse 79 02/17/21 11:26 Resp 22 H 02/17/21 11:26 BP 103/59 02/17/21 10:45 Pulse Ox 94 02/17/21 11:26 02/16/21 02/17/21 02/17/21 22:59 06:59 14:59 Intake Total 400 / 400 100 / 500 Output Total 150 / 150 Balance 250 / 250 100 / 350 Physical Exam Narrative: EXAM NARRATIVE: Alert and awake HENMT: COMMON NORMALS: normocephalic and atraumatic HEAD & SCALP: normocephalic and atraumatic Resp: OTHER: Diminished air entry B/L , bilateral crackles in both the lungs rosales. Cardio: COMMON NORMALS: regular rate, regular rhythm, S1 normal heart sound present, S2 normal heart sound present, No gallops present (Cardio), No murmurs present (Cardio), No rub (Cardio) and Peripheral pulses 2+ throughout RATE: regular rate RHYTHM: regular rhythm HEART SOUNDS: S1 normal heart sound present and S2 normal heart sound present PERIPHERAL PULSES: Peripheral pulses 2+ throughout GI: COMMON NORMALS: Normal to inspection, nondistended, normoactive bowel sounds present, Soft to palpation, non-tender, No hepatosplenomegaly present and no masses AUSCULTATION: Yes normoactive bowel sounds PALPATION: Yes Soft to palpation and Yes No hepatosplenomegaly present RECTAL EXAM: deferred Extremity: COMMON NORMALS: no clubbing, cyanosis or edema and no pedal edema Urinary Catheter Management^: Bajwa: Cath Placed During This Visit: yes Reason for Continuing Indwelling Catheter: Accurate Measurement of Urinary Output in Critically Ill Patients Urinary Catheter Date of Insertion: 02/07/21 Urinary Catheter Time of Insertion: 10:07 Data : 02/16/21 04:30 02/17/21 04:30 A&P Assessment and plan (1) Pneumonia due to COVID-19 virus: s/p 3 sessions of proning, s/p remdesivir, s/p Actemra, she was empirically on antibiotics (ceftriaxone and azithromycin ) MRSA PCR negative. Bacterial antigens are negative.Blood cultures negative to date. Sputum culture rare yeast. Xray chest : No change in bilateral pulmonary opacities. 2D Echo : Left ventricle ejection fraction grossly appeared to be normal estimated ejection fraction at least 60%.Rest of the study is of poor quality. Continue dexamethasone fluconazole 200 mg every 24 hours Norepinephrine was used as needed for blood pressure support.Currently discontinued LFTs is improving . Bilirubin stable Gallbladder ultrasound negative on admission. CT abdomen and pelvis with contrast: No acute findings except for the Large RIGHT lateral rectus sheath hematoma measuring 20.0 x 9.0 x 4.2 cm. This was previously described on a prior ultrasound of 02/08/2021. H/H is stable. Status: Acute (2) Acute and chronic respiratory failure with hypoxia: Secondary to COVID-19 pneumonia Status: Acute (3) COPD (chronic obstructive pulmonary disease): No evidence of exacerbation Status: Chronic Qualifiers: COPD type: unspecified COPD Qualified Code(s): J44.9 - Chronic obstructive pulmonary disease, unspecified (4) Rhabdomyolysis: Resolved. Statin held. Renal function improving. Status: Acute Qualifiers: Rhabdomyolysis type: non-traumatic Qualified Code(s): M62.82 - Rhabdomyolysis Additional A&P Information Acute encephalopathy. May be secondary to Covid, or possibly some effect from Precedex as well. Try to wean Precedex down and off. Nursing is have turned it off this morning and we will see how she does. Acute kidney injury. Improved Transaminitis. Consistent with Covid. Continue to follow. Statin held. Gallbladder ultrasound no abnormality. hypertension. Amlodipine. 5 mg daily. Metoprolol 12.5 mg p.o. twice daily. Abdominal wall hematoma. Improved. Lovenox lower dose was resumed.. Hemoglobin drop was relatively minor. Full code Pepcid for GI prophylaxis Lovenox lower dose for DVT prophylaxis. Attestations Medical Necessity Statement*: Patient is to be in the hospital for management of Covid pneumonia Coding Level of Care Code Acute Administrative Coordinator for [facility] Fwd Exam Expanded Problem Focused Diagnoses Pneumonia due to COVID-19 virus U07.1; J12.82 Acute and chronic respiratory failure with hypoxia J96.21 COPD (chronic obstructive pulmonary disease) J44.9 COPD type: unspecified COPD Rhabdomyolysis M62.82 Rhabdomyolysis type: non-traumatic
[2021-02-17] MEDS: fluconazole premix 200 MG/100 ML PREMIX 100 MG IV (11:57)
[2021-02-17] MEDS: oxyCODONE 5 mg IR Tab/Cap PO (14:24)
--- NOTE | 2021-02-17 15:05 | PC.RESP ---
RT Shift Note Frequent safety and respiratory rounds continue. Orders completed as indicated. Patient monitored pre and post treatments throughout shift. Patient [Did.] tolerate treatments appropriately. Condition [DidNotChange]. Patient and/or resources representative educated on respiratory treatment and medications. Patient and/or resources representative [verbalized understanding]. Will continue to monitor patient progress.
--- NOTE | 2021-02-17 18:33 | PC.NURSE ---
Shift Note Frequent safety and comfort rounds continue. Orders and/or nursing care completed as indicated. Patient monitored for response to intervention and treatment(s). Education provided included disease process and treatment plan. Overall, patient had a good day. She was able to tolerate for the first time getting up to a chair. She spent about 8 hours in the chair today. Total urine output throughout dayshift was 400mL. Dr Dumas notified and no new orders were received. Oxygen requirements hve decreaed form requiring 50L and 75% down to 10 liters nasal cannula.
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
[2021-02-17] MEDS: enoxaparin 30 mg/0.3 mL Syringe SUBCUT (21:09)
[2021-02-17] MEDS: metoprolol tartrate 25 mg Tablet 12.5 MG PO (21:09)
[2021-02-17] MEDS: sennosides 8.6 mg Tablet PO (21:10)
[2021-02-17] MEDS: montelukast sodium 10 mg Tablet PO (21:10)
[2021-02-18] VITALS (56 sets, daily range): BP systolic 91–126; BP diastolic 46–86; PULSE 66–94; RESP 13–27; TEMP 36.5–36.9; O2SAT 74–100
[2021-02-18] MEDS: ipratropium-albuterol 3 mL Neb INHALATION ×4 (02:46→20:09)
[2021-02-18] MEDS: nitroglycerin 1 gm/inch oint Pkt 1 INCH TOPICAL (04:32)
[2021-02-18 05:30] LABS: Basophils % 0.3 %; Eosinophils % 0.1 %; Hematocrit 35.4 % (37.0-47.0); Hemoglobin 11.3 g/dL (11.5-15.3); Lymphocytes # 1.6 10^3/uL (0.8-4.8); Lymphocytes % 11.6 %; Mean Corpuscular HGB Conc 31.9 g/dL (30.0-36.0); Mean Corpuscular Hemoglobin 28.5 pg (28.0-34.0); Mean Corpuscular Volume 89.2 fl (81-99); Mean Platelet Volume 11.2 fL (7.4-10.4); Monocytes # 1.4 10^3/uL (0.2-0.9); Monocytes % 9.9 %; Neutrophils % 73.3 %; Nucleated Red Blood Cells % 0 %; Platelet Count 288 10^3/cmm (130-400); Red Blood Count 3.97 10^6/uL (4.1-5.3); Red Cell Distribution Width 15.4 % (12.1-15.1); White Blood Count 13.9 10^3/uL (4.0-10.0)
[2021-02-18] MEDS: famotidine 20 mg Tablet PO (05:31)
[2021-02-18 05:55] LABS: Alanine Aminotransferase 207 U/L (0-33); Albumin Level 3.4 g/dL (3.5-5.2); Alkaline Phosphatase 111 IU/L (35-105); Anion Gap 15.3 (5-19); Aspartate Amino Transferase 123 U/L (0-32); Blood Urea Nitrogen 46 mg/dL (8-23); Carbon Dioxide 29 mmol/L (22-29); Chloride 103 mmol/L (98-107); Globulin 2.2 g/dL (1.3-4.6); Glomerular Filtration Rate 62.3 mL/min (90-130); Glucose 96 mg/dL (65-115); Osmolality Calculated 308 mOsm/kg (285-295); Potassium 4.3 mmol/L (3.5-5.1); Sodium 143 mmol/L (136-145); Total Bilirubin 1.6 mg/dL (0.15-1.2); Total Protein 5.6 g/dL (6.6-8.7)
--- NOTE | 2021-02-18 07:00 | PC.NURSE ---
Shift Note Frequent safety and comfort rounds continue. Orders and/or nursing care completed as indicated. Patient monitored for response to intervention and treatment(s). Education provided includes[]. Patient and/or passenger representative [ResponseToTeaching]. Will continue to monitor. Patient had a great night. Urine output was 450 mL. The patient remains alert and oriented x 4. There were no complications during the shift.
[2021-02-18] MEDS: dexamethasone 10 mg/mL INJ 6 MG IVP (07:56)
[2021-02-18] MEDS: fluticasone nasal spray 16gm Btl 1 SPRAY INTRANASAL ×2 (07:57→17:17)
[2021-02-18] MEDS: amlodipine 5 mg Tablet PO (07:57)
[2021-02-18] MEDS: docusate sodium 10 mg/mL (5ml) Liq 100 MG PO ×2 (07:57→17:17)
[2021-02-18] MEDS: metoprolol tartrate 25 mg Tablet 12.5 MG PO ×2 (07:57→20:52)
--- NOTE | 2021-02-18 08:28 | PC.CHAP ---
Pastoral Care Encounter/Spiritual Assessment Type of Contact [] Declined genetic scientist visit [] Patient/Family/Request visit [] Outpatient visit [] Follow-up visit [] Physician referral [] Code/Alert [x] Routine visit [] Staff referral [] Actively dying [] Patient sleeping [] Family support [] [] Out of room [] Palliative care [] [] Receiving care in room [] Pre-surgical visit [] Trauma [] Long length of stay [x] ICU visit [] Other: Relational/Emotional Strength [] Patient feels connected with others/family/visitors/staff [] Distress [] Loneliness/isolation [] Abandonment Spirituality of Patient [] Person of Connie [] Attends Adventism of their Connie [] Believes in Prayer [] Reads Bible or Shinto materials [] There are Spiritual issues to be addressed Cutting [employer]ing Supervisor Interventions [x] Prayer [] Active listening [] Non-anxious presence [] Spiritual/emotional support [] Crisis/trauma care [] Spiritual counseling [] Bereavement support [] Provided bereavement packet [] Provided Bible/devotional materials [] Provided toy/stuffed animal, coloring book to patient or family member [] Provided Communion [] Anointing/[place] [] Salvation [x] Completed spiritual assessment [] Other: Impact on Illness or Injury [] Angry [] Fearful [] Anxious [] Often cries [] Exhaustion [] Unable to work [] Unable to attend anabaptist [] Unable to walk/stand [] Unable to read [] Unable to drive [] Unable to eat/drink [] Unable to sleep [] Unable to be with family [] Patient intubated [] Other: Summary Time spent with patient
--- NOTE | 2021-02-18 08:40 | PC.NURSE ---
0700 Report received, assessment completed. AAOx3, reoriented to time. Pt able to make all needs known. O2@10L/NC. VSS. Bajwa cath in place draining freely to BSD. RIJ CVL CDI. All lumens flush freely. 0745 Pt assisted to chair, tolerated well. Assist x2. Will monitor.
--- NOTE | 2021-02-18 09:28 | PC.NURSE ---
0915 Urinary catheter removed per MD orders. Pt tolerated well. 150ml clear omi urine in BSD. Pt assisted to BSC. Tolerated well
[2021-02-18] MEDS: fluconazole premix 200 MG/100 ML PREMIX 100 MG IV (10:56)
--- NOTE | 2021-02-18 14:25 | PC.RESP ---
RT Shift Note Frequent safety and respiratory rounds continue. Orders completed as indicated. Patient monitored pre and post treatments throughout shift. Patient [Did.] tolerate treatments appropriately. Condition .DidNotChange]. Patient and/or players club representative educated on respiratory treatment and medications. Patient and/or players club representative [verbalized understanding]. Will continue to monitor patient progress.
--- NOTE | 2021-02-18 14:33 | PC.SOCIAL ---
IM follow up provided. No questions voiced.
--- NOTE | 2021-02-18 14:50 | PM.PN ---
Subjective Subjective: Interval history: Patient was seen and examined this morning, no overnight events her oxygen requirement was decreased to 6 L today on nasal cannula Patient wanted to use bedside commode, no overnight febrile episodes Endorsing feeling well with improvement in appetite Plan was made to transfer her out of ICU to medical floor Did talk with correctional counselor/case manager as well Depending on PT evaluation she might need halfway facility because of increased weakness and lethargy Patient gave me consent to discuss her care plan with her daughter Vitals/I&O/Wt Last Vital Signs Temp 97.8 F 02/18/21 12:00 Pulse 82 02/18/21 14:23 Resp 20 H 02/18/21 14:23 BP 110/61 02/18/21 14:00 Pulse Ox 94 02/18/21 14:23 02/17/21 02/18/21 02/18/21 22:59 06:59 14:59 Intake Total 200 / 200 200 / 200 Output Total 250 / 250 450 / 700 Balance -250 / -250 -250 / -500 200 / 200 Weight last 48 hrs Weight 132.903 kg Physical Exam Narrative: EXAM NARRATIVE: Patient was sitting in a chair saturating well on 6 L nasal cannula EOMI, PERRLA No neurological deficit S1, S2 variable Morbidly obese Lower extremity nonpitting edema Hematoma of rectus sheath without acute worsening Bilateral breath sounds with mild rhonchi at the bases Abdomen distended no signs of peritonitis Urinary Catheter Management^: Bajwa: Cath Placed During This Visit: yes, but has since been removed by the nurse Reason for Continuing Indwelling Catheter: Decision to DC Catheter Urinary Catheter Date of Insertion: 02/07/21 Urinary Catheter Time of Insertion: 10:07 Date Urinary Catheter Removed: 02/18/21 Time Urinary Catheter Discontinued: 09:15 Data : 02/18/21 04:45 02/18/21 04:45 A&P Assessment and plan (1) Acute respiratory distress syndrome (ARDS) due to 2019 novel coronavirus: Status: Acute (2) Acute respiratory failure with hypoxia: Status: Acute (3) Pneumonia due to COVID-19 virus: Status: Acute (4) Acute kidney injury superimposed on chronic kidney disease: Status: Acute (5) Abnormal liver function: Status: Acute (6) Hematoma: Status: Acute (7) Morbid obesity: Status: Acute Additional A&P Information Persistent hypoxia related to COVID-19 Currently saturating well on 6 L nasal cannula Plan to transfer out of ICU plan her discharge, she has been working with physical therapy to some extent however was not able to fully contribute because of her poor endurance and strength Status post remdesivir and Decadron regimen I would discontinue steroids for now Discontinue antifungal D-dimer 0.7 no previous CTA however she is not tachycardic or requiring more oxygenation at this point Procalcitonin unremarkable will discontinue antibiotic Abnormal liver function likely secondary to COVID-19 related infection Trending down We will request hepatitis panel Acute on chronic kidney disease: Improved Abdominal wall hematoma: Stable, reduce anticoagulation dose Full code Regular diet DVT prophylaxis 30 mg every 24 hours Attestations Medical Necessity Statement*: Anticipating discharge to SNF transfer out of ICU today Time Spent in Patient Care: 16 - 35 minutes Coding Level of Care Code 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
--- NOTE | 2021-02-18 15:12 | PC.NURSE ---
Wasted 80ml versed with Dulce CONNELLY.
--- NOTE | 2021-02-18 18:24 | PC.NURSE ---
Pt transferred to Med surg rm 276 bed 1.
[2021-02-18] MEDS: montelukast sodium 10 mg Tablet PO (20:52)
[2021-02-18] MEDS: sennosides 8.6 mg Tablet PO (20:52)
[2021-02-18] MEDS: enoxaparin 30 mg/0.3 mL Syringe SUBCUT (20:52)
[2021-02-19] VITALS (12 sets, daily range): BP systolic 110–154; BP diastolic 68–81; PULSE 63–91; RESP 18–20; TEMP 36.8–37.2; O2SAT 80–95
[2021-02-19] MEDS: ipratropium-albuterol 3 mL Neb INHALATION ×3 (03:04→15:37)
[2021-02-19 03:47] LABS: Basophils % 0.2 %; Hematocrit 33.2 % (37.0-47.0); Hemoglobin 10.6 g/dL (11.5-15.3); Lymphocytes # 1.6 10^3/uL (0.8-4.8); Lymphocytes % 13.1 %; Mean Corpuscular HGB Conc 31.9 g/dL (30.0-36.0); Mean Corpuscular Hemoglobin 28.6 pg (28.0-34.0); Mean Corpuscular Volume 89.7 fl (81-99); Mean Platelet Volume 11.3 fL (7.4-10.4); Monocytes # 1.4 10^3/uL (0.2-0.9); Monocytes % 11.1 %; Neutrophils % 72.8 %; Nucleated Red Blood Cells % 0 %; Platelet Count 246 10^3/cmm (130-400); Red Cell Distribution Width 15.5 % (12.1-15.1); White Blood Count 12.4 10^3/uL (4.0-10.0)
[2021-02-19 04:17] LABS: Alanine Aminotransferase 197 U/L (0-33); Albumin Level 3.4 g/dL (3.5-5.2); Alkaline Phosphatase 111 IU/L (35-105); Anion Gap 14.1 (5-19); Anion Gap 14.2 (5-19); Aspartate Amino Transferase 107 U/L (0-32); Blood Urea Nitrogen 50 mg/dL (8-23); Blood Urea Nitrogen 56 mg/dL (8-23); C Reactive Protein 1.4 mg/L (0.0-4.9); Calcium 8.7 mg/dL (8.5-10.5); Calcium 8.9 mg/dL (8.5-10.5); Carbon Dioxide 28 mmol/L (22-29); Chloride 102 mmol/L (98-107); Chloride 104 mmol/L (98-107); Globulin 2.1 g/dL (1.3-4.6); Glomerular Filtration Rate 62.3 mL/min (90-130); Glucose 103 mg/dL (65-115); Glucose 118 mg/dL (65-115); Osmolality Calculated 304 mOsm/kg (285-295); Osmolality Calculated 310 mOsm/kg (285-295); Potassium 4.1 mmol/L (3.5-5.1); Potassium 4.2 mmol/L (3.5-5.1); Sodium 140 mmol/L (136-145); Sodium 142 mmol/L (136-145); Total Bilirubin 1.4 mg/dL (0.15-1.2); Total Protein 5.5 g/dL (6.6-8.7)
--- NOTE | 2021-02-19 04:49 | PC.NURSE ---
Shift Report: No acute events over night. Patient rested most of the shift. Vitals stable.
[2021-02-19] MEDS: famotidine 20 mg Tablet PO (05:04)
[2021-02-19] MEDS: amlodipine 5 mg Tablet PO (09:17)
[2021-02-19] MEDS: metoprolol tartrate 25 mg Tablet 12.5 MG PO (09:17)
--- NOTE | 2021-02-19 10:43 | PM.DCS ---
Discharge Providers Date of Admission: 02/07/21 10:42 Date of Discharge: February 19, 2021 Attending Provider at Admission: Guanaco Zamudio MD Attending Provider at Discharge: Bettina Chiang MD Primary Care Provider: Jonna Emery DO Diagnoses at Discharge Discharge Diagnosis (1) Acute respiratory distress syndrome (ARDS) due to 2019 novel coronavirus: Status: Acute (2) Acute respiratory failure with hypoxia: Status: Acute (3) Pneumonia due to COVID-19 virus: Status: Acute (4) Acute kidney injury superimposed on chronic kidney disease: Status: Acute (5) Abnormal liver function: Status: Acute (6) Hematoma: Status: Acute (7) Morbid obesity: Status: Acute Reason for Visit Reason for Visit: COVID, SOB Hospital Course Hospital Course History of Present Illness by Dr. Robb Dunnena Love Lizy is a 70 year old female who presented to the emergency department not feeling well for quite some time. She really cannot pin this down but did get a Covid test, a rapid on February 04 that was positive. She states she has had anorexia, fever, chills, shortness of breath, persistent cough. Symptoms culminated today where she had to come to the emergency department secondary to severe shortness of breath. She has had no chest discomfort. No vomiting. A family member has had Covid recentl Hospital course Patient was admitted for management of hypoxia related to COVID-19 she spent about 12 days in the hospital required intubation for worsening of hypoxia,, she was successfully extubated on 02/13 to 10 L high flow nasal cannula and was transitioned to 6 L nasal cannula. Home O2 evaluation qualified for 6 L on ambulation. She was discharged without addition of any medications other than albuterol and bowel regimen she did not require steroid taper or use of antibiotics. PT deemed her stable to go home patient was refusing to go to any skilled nursing.. Grandson was updated. He did develop large right lateral rectus sheath hematoma which remained stable, hemoglobin and hemodynamics were stable during hospitalization. There was no active extravasation from hematoma. Echo done during his hospitalization revealed EF 60% Urine, sputum, blood cultures sterile, MRSA nares negative Physical Exam Narrative: EXAM NARRATIVE: Patient was sitting in a chair saturating well on 4 L nasal cannula EOMI, PERRLA No neurological deficit S1, S2 variable Morbidly obese Lower extremity nonpitting edema Hematoma of rectus sheath without acute worsening Bilateral breath sounds with mild rhonchi at the bases Abdomen distended no signs of peritoni Urinary Catheter Management^: Bajwa: Cath Placed During This Visit: yes, but has since been removed by the nurse Reason for Continuing Indwelling Catheter: Decision to DC Catheter Urinary Catheter Date of Insertion: 02/07/21 Urinary Catheter Time of Insertion: 10:07 Date Urinary Catheter Removed: 02/18/21 Time Urinary Catheter Discontinued: 09:15 Discharge Data Data Completed and Pending: Completed Studies During Hospitalization Category Date Time Status CT abdomen pelvis w con* [id number] Rout ine Cat Scan 02/15/21 09:05 Completed XR chest 1V karen ble [id number] Routine Exams 02/09/21 03:00 Completed XR chest 1V karen ble [id number] Routine Exams 02/10/21 07:00 Completed XR chest 1V karen ble [id number] Routine Exams 02/12/21 07:00 Completed XR chest 1V karen ble [id number] Routine Exams 02/15/21 07:00 Completed XR chest 1V karen ble [id number] Stat Exams 02/08/21 03:06 Completed XR chest 1V karen ble [id number] Stat Exams 02/08/21 08:36 Completed XR chest 1V karen ble [id number] Urgent Exams 02/07/21 12:25 Completed CV. echo complete * [id number] Routine Ultrasound 02/15/21 06:00 Completed US abdomen limite d [id number] Routine Ultrasound 02/08/21 05:06 Completed US soft tissue/ex tremity [id number] Rout ine Ultrasound 02/08/21 Completed Pending at discharge Category Date Time Status CBC Auto Diff [Co mplete Blood Count w/Auto] AM LABS Lab 02/20/21 04:00 Ordered Labs from last 24 hours 02/19/21 02/19/21 02/19/21 03:05 03:05 03:05 WBC 12.4 H RBC 3.70 L Hgb 10.6 L Hct 33.2 L MCV 89.7 MCH 28.6 MCHC 31.9 RDW 15.5 H Plt Count 246 MPV 11.3 H Neut % (Auto) 72.8 Lymph % (Auto) 13.1 [place] % (Auto) 11.1 Eos % (Auto) 0.0 Baso % (Auto) 0.2 Neut # (Auto) 9.00 H Lymph # (Auto) 1.6 [place] # (Auto) 1.4 H Eos # (Auto) 0.0 Baso # (Auto) 0.0 Nucleated RBC % (a uto) 0 Nucleated RBCs # 0.0 Sodium 142 140 Potassium 4.2 4.1 Chloride 104 102 Carbon Dioxide 28 28 Anion Gap 14.2 14.1 BUN 56 H 50 H Creatinine 0.9 0.9 GFR Calculation 62.3 L 62.3 L Glucose 103 118 H Calculated Osmolal ity 310 H 304 H Calcium 8.7 8.9 Total Bilirubin 1.4 H AST 107 H ALT 197 H Alkaline Phosphata se 111 H C-Reactive Protein 1.4 Total Protein 5.5 L Albumin 3.4 L Globulin 2.1 Vitals: Last Vital Signs Temp 98.4 F 02/19/21 07:37 Pulse 80 02/19/21 07:37 Resp 18 02/19/21 07:37 BP 128/72 02/19/21 07:37 Pulse Ox 94 02/19/21 07:37 Discharge Plan Discharge Patient Disposition: Home Condition: Stable Prescriptions: New Senna Lax 8.6 mg Tablet 8.6 mg PO BEDTIME 30 Days Qty: 30 RF: 0 Continued fluticasone propionate [Flonase Allergy Relief] 50 mcg/actuation spray,suspension 1 spray intranasal BID 90 Days Qty: 48 RF: 1 atorvastatin 20 mg tablet 20 mg PO BEDTIME RF: 0 triamcinolone acetonide 0.1 % cream 1 applic topical DAILY PRN (Reason: unknown) RF: 0 famotidine 20 mg tablet 20 mg PO QAM RF: 0 Norvasc 10 mg tablet 10 mg PO QAM RF: 0 losartan 100 mg tablet 100 mg PO QAM RF: 0 Changed Singulair 10 mg tablet 10 mg PO BEDTIME 30 Days Qty: 30 RF: 2 albuterol sulfate 90 mcg/actuation HFA aerosol inhaler 2 puff inhalation Q6H PRN (Reason: Shortness Of Breath) 60 Days Qty: 2 RF: 2 Discharge Orders: Discharge Order (Routine); Ordered 02/19/21 Ordered By: Bettina Chiang Other Ambulatory Orders: DME: Oxygen (Order) Location: None Selected Ordered By: Bettina Chiang Referrals: Jonna Emery DO [Primary Care Provider] - 03/04/21 9:30 am (APPOINTMENT WITH DR MCDONALD ON MAR 04 AT 9:30) Discharge Diet: Cardiac Discharge Activity: Increase activity as tolerated Patient Instructions: Laxative, Stimulant (By mouth), Viral Pneumonia (GEN), Rhabdomyolysis (DC), Opioid Safety, Pneumonia Stoplight, Using Oxygen at Home Discharge Attestations Time Spent in Discharge Care*: less than 30 min Quality Metrics Clinical Quality Measures During this hospital stay, did patient experience: None Coding Level of Care Code Acute Chg FW DC note Diagnoses Acute respiratory distress syndrome (ARDS) due to 2019 novel coronavirus U07.1; J80 Acute respiratory failure with hypoxia J96.01 Pneumonia due to COVID-19 virus U07.1; J12.82 Acute kidney injury superimposed on chronic kidney disease N17.9; N18.9 Abnormal liver function R94.5 Hematoma T14.8XXA Morbid obesity E66.01
--- NOTE | 2021-02-19 17:50 | PC.NURSE ---
Discharge Note Patient discharged to home via private vehicle accompanied by transport personnel. Discharge instructions reviewed with patient and/or merchandising representative. Mobile pharmacy medications and/or prescriptions provided. Belongings/home medications returned.
== END 2021-02-19 17:51 | disposition home or self-care (01) | DRG 207 ==
LOC: ER 10:53 → ER IP 14:51 → MS 2A 15:22 → ICU 02-08 07:23 → MEDSURG 02-18 18:02
PROVIDERS: Internal Medicine; Internal Medicine Pulmonary Disease; Admitting Provider Internal Medicine; Emergency Provider Emergency Medicine; PCP Family Medicine; Visit Provider Internal Medicine
DX: U07.1 COVID-19 (principal); J12.82 Pneumonia due to coronavirus disease 2019; J80 Acute respiratory distress syndrome; M62.82 Rhabdomyolysis; Z68.42 Body mass index [BMI] 45.0-49.9, adult; N17.9 Acute kidney failure, unspecified; B37.89 Other sites of candidiasis; I12.9 Hypertensive chronic kidney disease with stage 1 through stage 4 chronic kidney disease, or unspecified chronic kidney disease; N18.30 Chronic kidney disease, stage 3 unspecified; R94.5 Abnormal results of liver function studies; J44.9 Chronic obstructive pulmonary disease, unspecified; E66.01 Morbid (severe) obesity due to excess calories; K21.9 Gastro-esophageal reflux disease without esophagitis; M79.81 Nontraumatic hematoma of soft tissue; M19.90 Unspecified osteoarthritis, unspecified site; G89.29 Other chronic pain; E78.5 Hyperlipidemia, unspecified; G47.33 Obstructive sleep apnea (adult) (pediatric); Z87.828 Personal history of other (healed) physical injury and trauma
CPT/HCPCS: 36415; 36416; 36600; 51702; 71045; 74177; 76705; 76882; 80048; 80051; 80053; 81001; 82330; 82550; 82728; 82803; 82805; 82962; 83605; 83615; 83690; 83735; 83880; 84145; 84484; 85007; 85014; 85018; 85025; 85378; 85610; 86140; 86403; 87040; 87070; 87205; 87426; 87641; 93005; 93306; 94002; 94003; 94640; 94762; 94799; 96365; 96366; 96367; 96372; 96375; 97110; 97161; 97166; 97530; 97535; 99291; C1751; J0456; J0696; J1100; J1170; J1450; J1650; J1940; J2250; J2270; J2704; J3010; J3262; J3490; J7050; Q9967

== ENCOUNTER 2021-02-19 21:36 | Observation (INO) | payer MEDICARE, MEDICAID, SELFPAY ==
[2021-02-19 21:44] VITALS: BP 145/86; PULSE 88; RESP 20; TEMP 36.7; O2SAT 95; BMI 45.1
--- NOTE | 2021-02-19 21:53 | ED_ITS ---
HPI - Weakness General: Chief complaint: Weakness Stated complaint: WEAKNESS Time Seen by Provider: 02/19/21 21:43 History of Present Illness: HPI Narrative: 70-year-old female spent nearly 2 weeks in the hospital. She was discharged today. She had been treated for Covid related acute respiratory failure and required intubation and mechanical ventilation for a time. She remained weak and was working with physical therapy. She refused skilled nursing placement. She was discharged today and realized that she is too weak to take care of herself at home. She states that her grandson is 21 but is not strong enough to help her. She reluctantly reports that she should have excepted shelter and wants to reconsider. Hospital Course History of Present Illness by Dr. Robb Holliswright is a 70 year old female who presented to the emergency department not feeling well for quite some time. She really cannot pin this down but did get a Covid test, a rapid on February 04 that was positive. She states she has had anorexia, fever, chills, shortness of breath, persistent cough. Symptoms culminated today where she had to come to the emergency department secondary to severe shortness of breath. She has had no chest discomfort. No vomiting. A family member has had Covid recentl Hospital course Patient was admitted for management of hypoxia related to COVID-19 she spent about 12 days in the hospital required intubation for worsening of hypoxia,, she was successfully extubated on 02/13 to 10 L high flow nasal cannula and was transitioned to 6 L nasal cannula. Home O2 evaluation qualified for 6 L on ambulation. She was discharged without addition of any medications other than albuterol and bowel regimen she did not require steroid taper or use of antibiotics. PT deemed her stable to go home patient was refusing to go to any skilled nursing.. Grandson was updated. He did develop large right lateral rectus sheath hematoma which remained stable, hemoglobin and hemodynamics were stable during hospitalization. There was no active extravasation from hematoma. Echo done during his hospitalization revealed EF 60% Urine, sputum, blood cultures sterile, MRSA nares negative Review of Systems General: Reports: 10 or more systems reviewed and unremarkable except in HPI and below Const: Reports: change in appetite, fatigue and malaise Resp: Reports: dyspnea and non-productive cough Musc: Reports: muscle weakness Neuro: Reports: difficulty walking and dizziness [facility] PFSH: Medical History (Updated 02/19/21 @ 22:07 by Rosalino Knapp MD) Acute respiratory failure with hypoxia Arthritis Chronic back pain CKD (chronic kidney disease), stage III COPD (chronic obstructive pulmonary disease) Essential hypertension GERD (gastroesophageal reflux disease) Hyperlipidemia MAURY (obstructive sleep apnea) Physical deconditioning Seasonal allergies Shoulder pain right Surgical History H/O: hysterectomy Partial History of back surgery History of cataract surgery Family History Other Cancer Hypertension MS (multiple sclerosis) Social History Smoking and tobacco status: never smoked Alcohol intake: never Physical Exam Const: COMMON NORMALS: patient oriented x3, no limitations, alert and well nourished EXAM LIMITATIONS: no altered mental status GENERAL APPEARANCE: cooperative and well developed; not in distress NUTRITIONAL APPEARANCE: obese ORIENTATION/CONSCIOUSNESS: Yes awake; not confused HENMT: COMMON NORMALS: normocephalic, atraumatic, external ears normal and Normal external nose present HEAD & SCALP: normal to inspection, normocephalic and atraumatic FACE & SINUS: face symmetric NOSE: Normal external nose present EXTERNAL EAR: Yes external ears normal MOUTH: lip normal; no muffled voice Eye: COMMON NORMALS: EOMs intact bilaterally and conjunctivae normal GENERAL EYE: appearance normal, both eyes and all related structures CONJUNCTIVA: Yes conjunctivae normal Neck/C-Spine: COMMON NORMALS: no JVD GENERAL: Yes normal visual inspection and Yes trachea midline Resp: COMMON NORMALS: clear to auscultation bilaterally EFFORT & INSPECTION: Yes able to speak in complete sentences, Yes symmetric chest movement, Yes tachypneic and No respiratory distress AUSCULTATION: clear to auscultation bilaterally PERCUSSION: other OTHER: 6L oxygen NC at 96% Cardio: COMMON NORMALS: no JVD, regular rate and regular rhythm RATE: regular rate RHYTHM: regular rhythm PERIPHERAL PULSES: radial pulses present GI: COMMON NORMALS: Soft to palpation INSPECTION: Yes normal to inspection PALPATION: Yes Soft to palpation, No Tenderness to palpation present (GI) and No Guarding due to palpation present (GI) Back/Pelvis: COMMON NORMALS: thoraco-lumbar ROM normal Extremity: COMMON NORMALS: normal to inspection GENERAL: Yes normal exam except as noted Neuro: COMMON NORMALS: patient oriented x3, moves all extremities, no focal motor deficits and no sensory deficits noted SENSORIUM/ORIENTATION: Yes alert Psych: COMMON NORMALS: mental status grossly normal, Normal thought process present, cooperative, normal affect and speech normal SPEECH: Yes normal speech THOUGHT PROCESS: Normal thought process present Skin: COMMON NORMALS: no rashes or lesions noted, turgor normal and no jaundice GENERAL SKIN EXAM: no rashes or lesions noted and turgor normal Course Vital Signs: Vital signs: Vital Signs Temperature 98.1 F 02/19/21 21:44 Pulse Rate 88 02/19/21 21:44 Respiratory Rate 20 H 02/19/21 21:44 Blood Pressure 145/86 02/19/21 21:44 Pulse Oximetry 95 02/19/21 21:44 MDM - Weakness MDM Narrative: Medical decision making narrative: Patient with physical and cardiopulmonary deconditioning leading to weakness and inability to perform ADLs without assistance. She tried having grandson help; he is of no help (per her report). Patient requesting SNF admission. I consulted with Dr Tyler; she will admit and work on placement. 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
--- NOTE | 2021-02-20 02:23 | P.HP_ITS ---
Providers/Chief Complaint Admitting Physician: Haylee Gonzalez MD Primary Care Provider: Jonna Emery DO Chief Complaint: WEAKNESS History of Present Illness Modesta Medel is a 70 year old female discharged yesterday morning after being treated for covid 19 pneumonia and resulting hypoxic respiratory failure. Her hospital course was complicated by intubation and mechanical ventilation. For details please see Dr. Chiang's discharge summary. Patient returned home and then was unable to carry out any ADLs at home including moving to the bathroom, self feeding, etc. She reported extreme fatigue, deconditioning and dyspnea with minimal exertion. 02 requirements remained stable at 6lpm, as on discharge. She has minimal help at home. She had been evaluated by both PT and OT during admission and had been recommended ongoing skilled therapy however patient chaves elected to return home. Now presented back at ER stating she has reconsidered as she in unable to care for herself at home. Review of Systems General: Reports: 10 or more systems reviewed and unremarkable except in HPI and below Const: Reports: body aches; Denies: fever(s) or chills Eyes: Denies: change in vision or photophobia ENMT: Denies: throat pain, enlarged tonsils, odynophagia or nasal congestion Card: Denies: chest pain, palpitations, irregular heart rhythm, edema, swelling of feet/ankles, lightheadedness, pre-syncope, dyspnea on exertion or orthopnea Resp: Reports: dyspnea and non-productive cough; Denies: productive cough, wheezing, stridor, pain on inspiration, change in phlegm color, hemoptysis or chest congestion GI: Denies: abdominal pain, nausea, vomiting, hematemesis, coffee ground emesis, dysphagia, heartburn, diarrhea, constipation, GI cramping, change in stool character, hematochezia or melena : Denies: flank pain, difficulty voiding, dysuria, urinary frequency, urinary urgency, urinary hesitancy or hematuria Musc: Denies: neck pain, back pain, extremity pain, joint swelling, joint warmth or deformity Neuro: Denies: headache(s), numbness in extremities, weakness in extremities, sensory changes, difficulty walking, frequent falls, dizziness, vertigo, behavioral changes, Slurred speech present or seizure-like activity Psych: Denies: anxiety, depression, suicidal ideation or homicidal ideation Endo: Denies: polyuria, polydipsia, tired all the time, cold intolerance or hot flashes Nils/Lymph: Denies: easy bruising or easy bleeding Medications/Allergies Home Medications Medication Instructions Recorded Confirmed Last Taken Type fluticasone propionate 50 1 spray INTRANASAL BID 90 Days #48 12/12/20 02/07/21 02/06/21 Rx mcg/actuation nasal g spray,suspension Norvasc 10 mg PO QAM 02/07/21 02/07/21 02/06/21 History atorvastatin 20 mg PO BEDTIME 02/07/21 02/07/21 02/06/21 History famotidine 20 mg PO QAM 02/07/21 02/07/21 02/06/21 History losartan 100 mg PO QAM 02/07/21 02/07/21 02/06/21 History triamcinolone acetonide 1 applic TOPICAL DAILY PRN 02/07/21 02/07/21 Unknown History Singulair 10 mg PO BEDTIME 30 Days #30 tab 02/19/21 02/07/21 02/06/21 Rx albuterol sulfate 2 puff INHALATION Q6H PRN 60 Days 02/19/21 02/07/21 Unknown Rx #2 g sennosides [Senna Lax] 8.6 mg PO BEDTIME 30 Days #30 tab 02/19/21 Unknown Rx Allergies Allergy/AdvReac Type Severity Reaction Status Date / Time carbamazepine [From Tegretol] AdvReac Mild twitches Verified 02/07/21 11:22 Sulfa (Sulfonamide AdvReac Mild made sore Verified 02/07/21 11:22 Antibiotics) worse PFSH Acute PFSH: Medical History (Updated 02/20/21 @ 04:59 by Haylee Gonzalez MD) Abnormal liver function Acute respiratory failure with hypoxia Arthritis Chronic back pain CKD (chronic kidney disease), stage III COPD (chronic obstructive pulmonary disease) Essential hypertension GERD (gastroesophageal reflux disease) Hyperlipidemia Morbid obesity MAURY (obstructive sleep apnea) Physical deconditioning Pneumonia due to COVID-19 virus Seasonal allergies Shoulder pain right Surgical History H/O: hysterectomy Partial History of back surgery History of cataract surgery Family History Other Cancer Hypertension MS (multiple sclerosis) Social History Smoking and tobacco status: never smoked Alcohol intake: never Vitals/I&O/Wt Last Vital Signs Temp 98.1 F 02/19/21 21:44 Pulse 88 02/19/21 21:44 Resp 20 H 02/19/21 21:44 BP 145/86 02/19/21 21:44 Pulse Ox 95 02/19/21 21:44 Weight last 48 hrs Weight 127.006 kg Physical Exam Narrative: EXAM NARRATIVE: General: No acute distress, AO x3 HEENT: PERRLA, pupils bilaterally equal and reactive, pallors not present Chest: Normal vesicular breath sounds, no added sounds, equal good air entry bilaterally CVS: S1-S2 regular, no murmurs, no tachycardia, no gallops, no rubs Abdomen: Soft, nontender, no organomegaly, bowel sounds present Neuro: No focal deficits, no facial deformity, AO x3, power 5/5 in all limbs Extremities: no edema, clubbing or cyanosis A&P Assessment and plan (1) Acute respiratory failure with hypoxia: Status: Acute (2) Physical deconditioning: Status: Acute (3) Pneumonia due to COVID-19 virus: Status: Acute Additional A&P Information Persistent hypoxia and deconditioning related to recent critical illness from COVID-19 Currently saturating well on 6 L nasal cannula, as on discharge On admission until yesterday, she demonstrated poor endurance and strength, was recommended to continue skilled therapy however patient elected to return Home. Now unable to carry out ADLs upon return to home. She lives with a young grandson however he is unable to care for her due to mental health issues. She states she is not able to care for herself and requesting safe disposition planning. Status post remdesivir and Decadron regimen Procalcitonin unremarkable on discharge. No current signs of superadded bacterial infection. Abdominal wall hematoma: Stable since discharge, no new bleeding . 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
[2021-02-20] MEDS: enoxaparin 40 mg/0.4 mL Syringe SUBCUT (03:19)
[2021-02-20] MEDS: losartan 50 mg Tablet 100 MG PO (06:22)
[2021-02-20] MEDS: amlodipine 10 mg Tablet PO (06:23)
[2021-02-20 06:56] LABS: Basophils # 0.1 10^3/uL (0.0-0.1); Basophils % 0.7 %; Eosinophils # 0.1 10^3/uL (0.0-0.8); Eosinophils % 1.1 %; Hematocrit 35.9 % (37.0-47.0); Hemoglobin 10.8 g/dL (11.5-15.3); Lymphocytes # 2.1 10^3/uL (0.8-4.8); Mean Corpuscular HGB Conc 30.1 g/dL (30.0-36.0); Mean Corpuscular Hemoglobin 28.3 pg (28.0-34.0); Mean Corpuscular Volume 94.2 fl (81-99); Mean Platelet Volume 12.4 fL (7.4-10.4); Monocytes # 1.2 10^3/uL (0.2-0.9); Monocytes % 14.2 %; Neutrophils # 4.73 10^3/uL (1.8-7.7); Neutrophils % 57.5 %; Nucleated Red Blood Cells % 0 %; Red Blood Count 3.81 10^6/uL (4.1-5.3); Red Cell Distribution Width 15.9 % (12.1-15.1); White Blood Count 8.2 10^3/uL (4.0-10.0)
[2021-02-20 07:16] LABS: Alanine Aminotransferase 193 U/L (0-33); Albumin Level 3.3 g/dL (3.5-5.2); Alkaline Phosphatase 97 IU/L (35-105); Aspartate Amino Transferase 103 U/L (0-32); Blood Urea Nitrogen 46 mg/dL (8-23); Calcium 8.5 mg/dL (8.5-10.5); Carbon Dioxide 28 mmol/L (22-29); Chloride 107 mmol/L (98-107); Glomerular Filtration Rate 71.3 mL/min (90-130); Glucose 80 mg/dL (65-115); Osmolality Calculated 311 mOsm/kg (285-295); Sodium 145 mmol/L (136-145); Total Bilirubin 1.1 mg/dL (0.15-1.2); Total Protein 5.3 g/dL (6.6-8.7)
[2021-02-20 07:50] LABS: Platelet Count 250 10^3/cmm (130-400); Slide Review Slide Review Perform
--- NOTE | 2021-02-20 09:42 | PC.PHAR ---
PT STATES SHE TAKES CARE OF HER MEDICATIONS-PT STATES SHE TAKES THE MEDICATIONS ENTERED
[2021-02-20 09:46] VITALS: PULSE 74; RESP 20; O2SAT 94
[2021-02-20] MEDS: pantoprazole DR 40 mg Tablet PO (09:49)
[2021-02-20 09:51] VITALS: BP 127/60; PULSE 86; RESP 16; O2SAT 92
--- NOTE | 2021-02-20 15:30 | P.PN_ITS ---
Subjective Subjective: Interval history: Patient has nursing that at home she was just not able to get up on her own and her grandson was not able to help her as well she is not regretting her decision stating that she wanted to try staying at home and avoiding residential placement but this time she is willing to go to SNF. Vitals/I&O/Wt Last Vital Signs Temp 98.1 F 02/19/21 21:44 Pulse 86 02/20/21 09:51 Resp 16 02/20/21 09:51 BP 127/60 02/20/21 09:51 Pulse Ox 92 02/20/21 09:51 Weight last 48 hrs Weight 127.006 kg Weight 127.006 kg Physical Exam Narrative: EXAM NARRATIVE: Patient was in semi-[place] position Saturation 83% of nasal cannula, on room air I put her on 6 L nasal cannula S1, S2, no active signs of heart failure Abdomen soft EOMI, PERRLA Bilateral breath sounds no active wheezing rhonchi or crackles Appropriate mood and affect Data : 02/20/21 06:34 02/20/21 06:34 A&P Assessment and plan (1) Pneumonia due to COVID-19 virus: Status: Acute (2) Acute respiratory failure with hypoxia: Status: Acute (3) Physical deconditioning: Status: Acute Additional A&P Information Patient was recently discharge from the hospital, awaiting SNF placement, continuous pillowcase cutter involved she will go to SNF with 6 L nasal cannula, DVT prophylaxis Lovenox Cardiac diet Full code Attestations Medical Necessity Statement*: Awaiting placement to SNF Time Spent in Patient Care: less than 15 minutes Coding Level of Care Code Acute Pastry Mixer for Nate De La Torre Diagnoses Pneumonia due to COVID-19 virus U07.1; J12.82 Acute respiratory failure with hypoxia J96.01 Physical deconditioning R53.81
[2021-02-20] MEDS: montelukast sodium 10 mg Tablet PO (20:22)
[2021-02-20] MEDS: atorvastatin 40 mg Tablet 20 MG PO (20:23)
[2021-02-21 01:55] VITALS: PULSE 79; RESP 20; O2SAT 93
[2021-02-21] MEDS: enoxaparin 40 mg/0.4 mL Syringe SUBCUT (02:39)
[2021-02-21] MEDS: acetaminophen 325 mg Tablet 650 MG PO (04:16)
[2021-02-21 05:10] VITALS: BP 120/71
[2021-02-21] MEDS: losartan 50 mg Tablet 100 MG PO (05:10)
[2021-02-21] MEDS: amlodipine 10 mg Tablet PO (05:11)
[2021-02-21] MEDS: pantoprazole DR 40 mg Tablet PO (08:37)
--- NOTE | 2021-02-21 10:18 | PC.CHAP ---
Pastoral Care Encounter/Spiritual Assessment Type of Contact [] Declined weaving teacher visit [] Patient/Family/Request visit [] Outpatient visit [] Follow-up visit [] Physician referral [] Code/Alert [x] Routine visit [] Staff referral [] Actively dying [] Patient sleeping [] Family support [] [] Out of room [] Palliative care [] [x] Receiving care in room [] Pre-surgical visit [] Trauma [x] Long length of stay [] ICU visit [] Other: Relational/Emotional Strength [] Patient feels connected with others/family/visitors/staff [] Distress [] Loneliness/isolation [] Abandonment Spirituality of Patient [x] Person of Connie [] Attends Anglican of their Connie [x] Believes in Prayer [] Reads Bible or Islam materials [] There are Spiritual issues to be addressed Bakery Technician Interventions [x] Prayer [x] Active listening [x] Non-anxious presence [x] Spiritual/emotional support [] Crisis/trauma care [x] Spiritual counseling [] Bereavement support [] Provided bereavement packet [] Provided Bible/devotional materials [] Provided toy/stuffed animal, coloring book to patient or family member [] Provided Communion [] Anointing/[place] [] Salvation [x] Completed spiritual assessment [] Other: Impact on Illness or Injury [] Angry [] Fearful [x] Anxious [] Often cries [] Exhaustion [x] Unable to work [] Unable to attend restorationism [] Unable to walk/stand [] Unable to read [] Unable to drive [] Unable to eat/drink [] Unable to sleep [] Unable to be with family [] Patient intubated [] Other: Summary Had a relaps from jack[place] not able to walk or take care of her self has a good attitude and going into rehab for rec overy Time spent with patient 19 mins
--- NOTE | 2021-02-21 14:02 | PM.PN ---
Subjective Subjective: Interval history: No overnight event patient is awaiting authorization from retirement as soon as she gets accepted will be transferred Vitals/I&O/Wt Last Vital Signs Temp 98.1 F 02/19/21 21:44 Pulse 79 02/21/21 01:55 Resp 20 H 02/21/21 01:55 BP 120/71 02/21/21 05:10 Pulse Ox 93 02/21/21 01:55 02/20/21 02/21/21 02/21/21 22:59 06:59 14:59 Intake Total 250 / 250 451 / 701 40 / 40 Output Total 200 / 200 Balance 50 / 50 451 / 501 40 / 40 Weight last 48 hrs Weight 127.006 kg Weight 127.006 kg Physical Exam Narrative: EXAM NARRATIVE: female laying comfortably in her bed saturating well on 6 L nasal cannula EOMI, PERRLA abdomen soft fatigued and and lethargic awake alert oriented x3 S1, S2 GCS 15 no audible stridor or wheezing Data : 02/20/21 06:34 02/20/21 06:34 A&P Assessment and plan (1) Pneumonia due to COVID-19 virus: Patient currently is doing well on 6 L NC awaiting retirement placement status post remdesivir regimen and Decadron no need of continuation of long-term steroids Status: Acute (2) Acute respiratory failure with hypoxia: Status: Acute (3) Physical deconditioning: Status: Acute Attestations Medical Necessity Statement*: Awaiting retirement placement Time Spent in Patient Care: less than 15 minutes Coding Level of Care Code Acute Trading Manager for [facility] Diagnoses Pneumonia due to COVID-19 virus U07.1; J12.82 Acute respiratory failure with hypoxia J96.01 Physical deconditioning R53.81
[2021-02-21 20:10] VITALS: BP 112/74; PULSE 90; RESP 18; TEMP 36.8; O2SAT 99
[2021-02-21] MEDS: montelukast sodium 10 mg Tablet PO (20:25)
[2021-02-21] MEDS: atorvastatin 40 mg Tablet 20 MG PO (20:25)
[2021-02-22] VITALS (7 sets, daily range): BP systolic 109–147; BP diastolic 73–88; PULSE 81–93; RESP 16–18; TEMP 36.8–37.1; O2SAT 91–99
[2021-02-22] MEDS: enoxaparin 40 mg/0.4 mL Syringe SUBCUT (02:20)
[2021-02-22] MEDS: amlodipine 10 mg Tablet PO (05:54)
[2021-02-22] MEDS: losartan 50 mg Tablet 100 MG PO (05:54)
[2021-02-22] MEDS: pantoprazole DR 40 mg Tablet PO (08:11)
--- NOTE | 2021-02-22 11:34 | PM.DCS ---
Discharge Providers Date of Admission: 02/20/21 00:12 Date of Discharge: February 22, 2021 Attending Provider at Admission: Haylee Gonzalez MD Attending Provider at Discharge: Bettina Chiang MD Primary Care Provider: Jonna Emery DO Diagnoses at Discharge Discharge Diagnosis (1) Pneumonia due to COVID-19 virus: Status: Acute (2) Acute respiratory failure with hypoxia: Status: Acute (3) Physical deconditioning: Status: Acute Reason for Visit Reason for Visit: WEAKNESS Hospital Course Hospital Course Hospital course Patient was admitted for management of hypoxia related to COVID-19 she spent about 12 days in the hospital required intubation for worsening of hypoxia,, she was successfully extubated on 02/13 to 10 L high flow nasal cannula and was transitioned to 6 L nasal cannula. Home O2 evaluation qualified for 6 L on ambulation. She was discharged without addition of any medications other than albuterol and bowel regimen she did not require steroid taper or use of antibiotics. PT deemed her stable to go home patient was refusing to go to any chcf.. Grandson was updated. She did develop large right lateral rectus sheath hematoma which remained stable, hemoglobin and hemodynamics were stable during hospitalization. There was no active extravasation from hematoma. Echo done during his hospitalization revealed EF 60% Urine, sputum, blood cultures sterile, MRSA nares negative She was discharged home (patient refused going to any SNF) on 02/19 however because of worsening of her weakness she decided to come back to the hospital in order to go back to SNF. She will go to SNF today on 6 L nasal cannula no changes were made in her medications. Physical Exam Narrative: EXAM NARRATIVE: female laying comfortably in her bed saturating well on 6 L nasal cannula EOMI, PERRLA abdomen soft fatigued and and lethargic awake alert oriented x3 S1, S2 GCS 15 no audible stridor or wheezing Discharge Data Vitals: Last Vital Signs Temp 98.2 F 02/22/21 11:31 Pulse 92 02/22/21 11:31 Resp 16 02/22/21 11:31 BP 109/73 02/22/21 11:31 Pulse Ox 96 02/22/21 11:31 Discharge Plan Discharge Patient Disposition: [facility] SNF Condition: Stable Prescriptions: Continued fluticasone propionate [Flonase Allergy Relief] 50 mcg/actuation spray,suspension 1 spray intranasal BID 90 Days Qty: 48 RF: 1 atorvastatin 20 mg tablet 20 mg PO BEDTIME RF: 0 triamcinolone acetonide 0.1 % cream 1 applic topical DAILY PRN (Reason: unknown) RF: 0 famotidine 20 mg tablet 20 mg PO QAM RF: 0 amlodipine [Norvasc] 10 mg tablet 10 mg PO QAM RF: 0 losartan 100 mg tablet 100 mg PO QAM RF: 0 montelukast [Singulair] 10 mg tablet 10 mg PO BEDTIME 30 Days Qty: 30 RF: 2 albuterol sulfate 90 mcg/actuation HFA aerosol inhaler 2 puff inhalation Q6H PRN (Reason: Shortness Of Breath) 60 Days Qty: 2 RF: 2 Senna Lax 8.6 mg Tablet 8.6 mg PO BEDTIME PRN (Reason: Constipation) RF: 0 Tylenol Extra Strength 500 mg Tablet 1,000 mg PO Q4H PRN (Reason: Pain) RF: 0 Discharge Orders: Discharge Order (Routine); Ordered 02/22/21 Ordered By: Bettina Chiang Referrals: Jonna Emery DO [Primary Care Provider] - Discharge Diet: Cardiac Discharge Activity: Increase activity as tolerated, Use walker/crutches as instructed and As per PT/OT instructions Discharge Attestations Time Spent in Discharge Care*: less than 30 min Quality Metrics Clinical Quality Measures During this hospital stay, did patient experience: None Coding Level of Care Code Acute Chg FW DC note Diagnoses Pneumonia due to COVID-19 virus U07.1; J12.82 Acute respiratory failure with hypoxia J96.01 Physical deconditioning R53.81
--- NOTE | 2021-02-22 14:07 | PC.NURSE ---
report called to [facility]
--- NOTE | 2021-02-22 14:57 | PC.CHAP ---
Pastoral Care Encounter/Spiritual Assessment Type of Contact [] Declined cut plug packer visit [] Patient/Family/Request visit [] Outpatient visit [xx] Follow-up visit [] Physician referral [] Code/Alert [xx] Routine visit [] Staff referral [] Actively dying [] Patient sleeping [] Family support [] [] Out of room [] Palliative care [] [] Receiving care in room [] Pre-surgical visit [] Trauma [] Long length of stay [] ICU visit [] Other: Relational/Emotional Strength [xx] Patient feels connected with others/family/visitors/staff [] Distress [] Loneliness/isolation [] Abandonment Spirituality of Patient [xx] Person of Connie [] Attends Scientologist of their Connie [xx] Believes in Prayer [xx] Reads Bible or Moravian materials [] There are Spiritual issues to be addressed Airworthiness Inspector Interventions [xx] Prayer [xx] Active listening [xx] Non-anxious presence [] Spiritual/emotional support [] Crisis/trauma care [] Spiritual counseling [] Bereavement support [] Provided bereavement packet [xx] Provided Bible/devotional materials [] Provided toy/stuffed animal, coloring book to patient or family member [] Provided Communion [] Anointing/[place] [] Salvation [xx] Completed spiritual assessment [] Other: Impact on Illness or Injury [] Angry [] Fearful [] Anxious [] Often cries [] Exhaustion [] Unable to work [] Unable to attend restorationism [] Unable to walk/stand [] Unable to read [] Unable to drive [] Unable to eat/drink [] Unable to sleep [] Unable to be with family [] Patient intubated [] Other: Summary Patient is concerned about delays in getting her therapy started. She stated she has recovered from Covid-19 except that it left her weak and she needs help recovering margareth strength. Time spent with patient 7 minutes
--- NOTE | 2021-02-22 17:56 | PC.RESP ---
PULMONARY REHAB INFORMATION SENT TO PATIENT.
--- NOTE | 2021-02-26 08:26 | PC.SOCIAL ---
spoke with Mercy at [facility], patient will see Dr. Zamudio at this time while she is at SNF. no needs voiced from [facility].
== END 2021-02-22 15:28 | disposition skilled nursing facility (03) ==
LOC: ER 22:28 → ER IP 02-20 00:15 → MEDSURG 02-20 13:47
PROVIDERS: Admitting Provider Student in an Organized Health Care Education/Training Program; Emergency Provider Emergency Medicine; PCP Family Medicine; Visit Provider Internal Medicine
DX: U07.1 COVID-19 (principal); J12.82 Pneumonia due to coronavirus disease 2019; R53.81 Other malaise; J96.01 Acute respiratory failure with hypoxia; M19.90 Unspecified osteoarthritis, unspecified site; J44.9 Chronic obstructive pulmonary disease, unspecified; I12.9 Hypertensive chronic kidney disease with stage 1 through stage 4 chronic kidney disease, or unspecified chronic kidney disease; N18.30 Chronic kidney disease, stage 3 unspecified; K21.9 Gastro-esophageal reflux disease without esophagitis; E78.5 Hyperlipidemia, unspecified; E66.01 Morbid (severe) obesity due to excess calories; Z68.42 Body mass index [BMI] 45.0-49.9, adult; G47.33 Obstructive sleep apnea (adult) (pediatric); Z82.49 Family history of ischemic heart disease and other diseases of the circulatory system
CPT/HCPCS: 80053; 85025; 96372; 99285; G0378; J1650

== ENCOUNTER 2021-03-21 16:02 | Emergency (ER) | payer MEDICARE, MEDICAID, SELFPAY ==
[2021-03-21 16:30] VITALS: BP 167/86; PULSE 118; RESP 16; TEMP 36.7; O2SAT 98
[2021-03-21 16:33] VITALS: BP 141/100; PULSE 110; RESP 15; O2SAT 96
--- NOTE | 2021-03-21 16:35 | XRR_ITS ---
PROCEDURE INFORMATION: Exam: XR Right Shoulder Exam date and time: 03/21/2021 4:35 PM Age: 70 years old Clinical indication: Injury or trauma; Blunt trauma (contusions or hematomas); Right; Injury details: Fall x 2 weeks. Pain in RT shoulder; Additional info: Trauma/pain; Y view too please TECHNIQUE: Imaging protocol: XR Right shoulder. Views: 2 or more views. COMPARISON: CR XR chest 1V portable [id number] 02/15/2021 5:08 AM FINDINGS: Bones/joints: Right posterior 7th chronic appearing rib fracture. Soft tissues: Normal. XR/XR shoulder RT min 2V* [id number] IMPRESSION: 1. Negative for fracture or dislocation. 2. Right posterior 7th chronic appearing rib fracture. Radiation Dose CTDIVOL = (mGy): DLP = (mGy-cm)
--- NOTE | 2021-03-21 17:17 | W.ED.EXTPRO ---
HPI - Extremity Problem General: Chief complaint: Extremity Injury, Upper Stated complaint: R Shoulder Pain from fall Time Seen by Provider: 03/21/21 16:35 History of Present Illness: HPI Narrative: Patient planes about right shoulder pain x2 weeks after a fall striking a bathtub when she was standing outside of it. Has history of multiple fractures. Patient says she has had rib fractures knee fractures arm fractures. States his pain is gone for 2 weeks her right shoulder has difficulty with movement due to the pain. Medication has not helped. She has placed ice on it. Denies any other problems. MD Complaint: joint pain Onset (ago): week(s) Pain Consistency: constant Location: right and upper extremity Severity scale (1-10): 4 Quality: aching Radiation: none Relieving factors: immobilization Exacerbating factors: range of motion Associated symptoms: Reports no associated symptoms; Deny chest pain, fever(s) or rash Review of Systems Const: Denies: fever(s), chills or body aches Eyes: Denies: change in vision or blurry vision ENMT: Denies: throat pain or nasal congestion Card: Denies: chest pain or dyspnea on exertion Resp: Denies: dyspnea, productive cough or non-productive cough GI: Denies: abdominal pain, nausea or vomiting Musc: Reports: joint pain (Right shoulder trapezius also.); Denies: extremity pain Skin/Breast: Denies: rash Neuro: Denies: headache(s) Psych: Denies: anxiety or depression Nils/Lymph: Denies: easy bruising PFSH ED PFSH: Medical History Abnormal liver function Acute respiratory failure with hypoxia Arthritis Chronic back pain CKD (chronic kidney disease), stage III Contact dermatitis COPD (chronic obstructive pulmonary disease) COVID-19 02/04/2021 with Hospital 02/07 to 02/22/2021 Essential hypertension GERD (gastroesophageal reflux disease) Hyperlipidemia Hypertension Morbid obesity MAURY (obstructive sleep apnea) MAURY and COPD overlap syndrome Physical deconditioning Pneumonia due to COVID-19 virus Seasonal allergies Shoulder pain right Surgical History H/O: hysterectomy Partial History of back surgery History of cataract surgery Family History Other Cancer Hypertension MS (multiple sclerosis) Social History Smoking and tobacco status: never smoked Alcohol intake: never Physical Exam Const: COMMON NORMALS: no acute distress, average body habitus and patient oriented x3 HENMT: COMMON NORMALS: normocephalic HEAD & SCALP: normal to inspection and normocephalic FACE & SINUS: normal facial exam Eye: COMMON NORMALS: conjunctivae normal GENERAL EYE: appearance normal, both eyes and all related structures CONJUNCTIVA: Yes conjunctivae normal Neck/C-Spine: COMMON NORMALS: no JVD Chest: COMMONS NORMALS: normal inspection of the chest Resp: COMMON NORMALS: normal respiratory effort and clear to auscultation bilaterally AUSCULTATION: clear to auscultation bilaterally Cardio: COMMON NORMALS: no JVD, regular rate and regular rhythm RATE: regular rate RHYTHM: regular rhythm GI: COMMON NORMALS: Normal to inspection, nondistended, normoactive bowel sounds present Extremity: RIGHT UPPER EXTREMITY: Yes shoulder joint (Tender anterior aspect AC joint no swelling distal neurovascular intact) Right shoulder: Yes Right shoulder joint other findings (Ribs not tender. Right trapezius is slightly tender. No swelling) Neuro: COMMON NORMALS: patient oriented x3 Course Vital Signs: Vital signs: Vital Signs Temperature 98.0 F 03/21/21 16:30 Pulse Rate 110 H 03/21/21 16:33 Respiratory Rate 15 03/21/21 16:33 Blood Pressure 141/100 03/21/21 16:33 Pulse Oximetry 96 03/21/21 16:33 Discharge Plan Discharge Prescriptions: No Action amitriptyline 25 mg tablet 25 mg PO DAILY Qty: 90 RF: 1 fluticasone propionate [Flonase Allergy Relief] 50 mcg/actuation spray,suspension 1 spray intranasal BID 90 Days Qty: 48 RF: 1 triamcinolone acetonide 0.1 % cream 1 applic topical DAILY PRN (Reason: unknown) RF: 0 famotidine 20 mg tablet 20 mg PO QAM RF: 0 amlodipine [Norvasc] 10 mg tablet 10 mg PO QAM RF: 0 losartan 100 mg tablet 100 mg PO QAM RF: 0 albuterol sulfate 90 mcg/actuation HFA aerosol inhaler 2 puff inhalation Q6H PRN (Reason: Shortness Of Breath) 60 Days Qty: 2 RF: 2 atorvastatin 20 mg tablet 20 mg PO BEDTIME Qty: 90 RF: 1 montelukast [Singulair] 10 mg tablet 10 mg PO BEDTIME 30 Days Qty: 90 RF: 1 Senna Lax 8.6 mg Tablet 8.6 mg PO BEDTIME PRN (Reason: Constipation) RF: 0 Tylenol Extra Strength 500 mg Tablet 1,000 mg PO Q4H PRN (Reason: Pain) RF: 0 Coding Level of Care Code ED Senior Biostatistician/Group Leader for Nate De La Torre
[2021-03-21 18:33] VITALS: RESP 15
[2021-03-21 18:46] VITALS: RESP 15
== END 2021-03-21 18:46 | disposition home or self-care (01) ==
PROVIDERS: Emergency Provider Nurse Practitioner Family; PCP Family Medicine
DX: M25.511 Pain in right shoulder (principal); I12.9 Hypertensive chronic kidney disease with stage 1 through stage 4 chronic kidney disease, or unspecified chronic kidney disease; N18.30 Chronic kidney disease, stage 3 unspecified; J44.9 Chronic obstructive pulmonary disease, unspecified; E78.5 Hyperlipidemia, unspecified
CPT/HCPCS: 73030; 80053; 85025; 99282

== ENCOUNTER → 2021-05-23 14:48 | Outpatient (BNVA) | payer MEDICARE, MEDICAID, SELFPAY | PROVIDERS: PCP Family Medicine; Visit Provider Family Medicine | DX: L65.9 Nonscarring hair loss, unspecified (principal); M25.511 Pain in right shoulder; G89.29 Other chronic pain; I10 Essential (primary) hypertension | CPT/HCPCS: 84443 ==

== ENCOUNTER → 2021-06-27 14:18 | Outpatient (BNVA) | payer MEDICARE, MEDICAID, SELFPAY | PROVIDERS: PCP Family Medicine; Visit Provider Family Medicine | DX: L65.9 Nonscarring hair loss, unspecified (principal); M25.511 Pain in right shoulder; G89.29 Other chronic pain; I10 Essential (primary) hypertension; Z13.6 Encounter for screening for cardiovascular disorders; E03.8 Other specified hypothyroidism | CPT/HCPCS: 80053; 80061; 84443 ==

== ENCOUNTER 2021-08-12 13:58 | Outpatient (CLI) | payer MEDICARE, MEDICAID, SELFPAY ==
--- NOTE | 2021-08-12 14:11 | MR_ITS ---
WS: [id number] MRI RIGHT SHOULDER HISTORY: shoulder pain, history of fall. Decreased range of motion. COMPARISON: Radiograph 03/21/2021. TECHNIQUE: Multiplanar sequences of the shoulder joint are submitted. Moderate degenerative changes at the AC joint. Soft tissue and bone hypertrophy with increased fluid along the AC ligament. There is mild encroachment upon the supraspinatus tendon and muscle. Small ost eophyte measuring 5 mm from the distal undersurface of the clavicle without significant impingement. No acute fracture or marrow edema. Small subchondral cysts in the humeral head at the site of the rot ator cuff attachment. No os acromion. Biceps tendon normal position. Partial tear involving the distal supraspinatus tendon at its insertion. Tear extends to the bursal s urface and there is also fluid extending within the tendon. The remaining tendons are intact. No musc le atrophy or edema. There is with fluid involving the anterior labrum consistent with a tear. Mild degenerative changes a long the glenoid. MR/MR shoulder RT wo con* [id number] IMPRESSION: 1. Insertion site tear supraspinatus tendon involving the articular surface. N o retraction. 2. Moderate AC joint arthritis. Mild encroachment upon the supraspinatus. 3. Focal tear involving the anterior labrum.
== END 2021-08-12 13:59 | disposition home or self-care (01) ==
PROVIDERS: PCP Family Medicine; Visit Provider Family Medicine
DX: M75.101 Unspecified rotator cuff tear or rupture of right shoulder, not specified as traumatic (principal); M19.011 Primary osteoarthritis, right shoulder; S43.431A Superior glenoid labrum lesion of right shoulder, initial encounter; X58.XXXA Exposure to other specified factors, initial encounter
CPT/HCPCS: 73221

== ENCOUNTER → 2021-08-22 11:07 | Outpatient (BNVA) | payer MEDICARE, MEDICAID, SELFPAY | PROVIDERS: PCP Family Medicine; Visit Provider Family Medicine | DX: R74.8 Abnormal levels of other serum enzymes (principal); E03.9 Hypothyroidism, unspecified | CPT/HCPCS: 84075; 84443 ==

== ENCOUNTER → 2021-09-06 12:50 | Outpatient (BNVA) | payer MEDICARE, MEDICAID, SELFPAY | PROVIDERS: PCP Family Medicine; Visit Provider Orthopaedic Surgery | DX: Z20.822 Contact with and (suspected) exposure to COVID-19 (principal) | CPT/HCPCS: 87635 ==

== ENCOUNTER 2021-09-12 06:17 | Day surgery (SDC) | payer MEDICARE, MEDICAID, SELFPAY ==
[2021-09-11 12:45] VITALS: BMI 49.1
[2021-09-12] VITALS (18 sets, daily range): BP systolic 132–185; BP diastolic 65–108; PULSE 91–110; RESP 1–22; TEMP 36.2–36.9; O2SAT 84–99
[2021-09-12] MEDS: acetaminophen 500 mg Tablet 1000 MG PO (06:58)
[2021-09-12] MEDS: sodium chloride 0.9% 1,000 ML 30 ML IV (07:00)
--- NOTE | 2021-09-12 08:15 | W.PM.OPSUD ---
Surgery/Procedure H&P Update DATE OF PROCEDURE: September 12, 2021 DATE H&P PERFORMED: 08/28/21 H&P UPDATE INFORMATION: I have reviewed H&P completed within last 30 days PREOP DIAGNOSIS: Rotator cuff tear, DJD acromioclavicular joint PLANNED PROCEDURE: Operation Date: 09/12/21 08:00 Proposed Procedures p Shoulder Arthroscopy [id number](Right) - Arslan Valentine MD s Rotator Cuff Repair(Right) - Arslan Valentine MD
--- NOTE | 2021-09-12 08:28 | ANES.PREANE2 ---
Pre-Anesthetic Assessment Height/Weight: Height 1.65 m Weight 133.81 kg Temp Pulse Resp BP Pulse Ox 98.4 F 103 H 1 L 172/92 99 09/12/21 06:33 09/12/21 06:33 09/12/21 06:33 09/12/21 06:33 09/12/21 06:33 Preop Diagnosis: Rotator cuff tear, DJD acromioclavicular joint Operation Date: 09/12/21 08:00 Proposed Procedures p Shoulder Arthroscopy [id number](Right) - Arslan Valentine MD s Rotator Cuff Repair(Right) - Arslan Valentine MD Familial anesthetic complications: None Was Beta Ayan taken within 24 hours: Yes Was Clonidine taken within 24 hours: N/A Last intake: Intake Last Liquid Date 09/11/21 Last Liquid Time 19:00 Last Solid Date 09/11/21 Last Solid Time 17:00 Social No alcohol and No tobacco (h/o smoking) Exam alert, oriented x 3, clear to auscultation bilaterally and regular rate & rhythm Airway Submandibular: within normal limits Cervical ROM: within normal limits Mallampati: Class II Dentition: false Pulmonary Post COVID SOB CV/HEM Hypertension Chronic Renal Insufficiency GI Gastroesophageal Reflux Disease Metabolic Hyperlipidemia, Morbid Obesity and Thyroid Disease Anesthetic Plan ASA status: 3 Anesthesia: General and Regional (specify below) (Right interscalene nerve blk) Risk of > 500 ml blood loss (7ml/kg in children): No Medications/Allergies Home Medications Medication Instructions Recorded Confirmed Last Taken Type acetaminophen 500 mg tablet 1,000 mg PO Q4H PRN 02/20/21 09/11/21 Unknown History (Tylenol Extra Strength) diclofenac sodium 1 % topical gel 4 g TOPICAL QID #100 g 03/21/21 09/12/21 Unknown Rx (Voltaren Arthritis Pain) fluticasone propionate 50 1 spray INTRANASAL BID 90 Days #48 05/28/21 09/11/21 Unknown Rx mcg/actuation nasal g spray,suspension (Flonase Allergy Relief) albuterol sulfate 90 mcg/actuation See Rx Instructions .ROUTE 05/30/21 09/11/21 Unknown Rx aerosol inhaler .COMPLEX #34 g amitriptyline 25 mg tablet 25 mg PO DAILY #90 tab 06/24/21 09/12/21 1 Day Ago Rx ~09/11/21 famotidine 20 mg tablet See Rx Instructions .ROUTE 08/26/21 09/12/21 1 Day Ago Rx .COMPLEX #90 tab ~09/11/21 levothyroxine 25 mcg tablet 25 mcg PO DAILY 90 Days #90 tab 08/27/21 09/12/21 1 Day Ago Rx (Levo-T) ~09/11/21 atorvastatin 40 mg tablet 40 mg PO .HS 90 Days #90 tab 08/30/21 09/12/21 1 Day Ago Rx ~09/11/21 amlodipine 10 mg tablet See Rx Instructions .ROUTE 09/04/21 09/12/21 09/12/21 04:00 Rx .COMPLEX #90 tab celecoxib 200 mg capsule See Rx Instructions .ROUTE 09/04/21 09/12/21 1 Day Ago Rx .COMPLEX #90 cap ~09/11/21 losartan 100 mg tablet See Rx Instructions .ROUTE 09/04/21 09/12/21 1 Day Ago Rx .COMPLEX #90 tab ~09/11/21 metoprolol tartrate 25 mg tablet See Rx Instructions .ROUTE 09/04/21 09/12/21 1 Day Ago Rx .COMPLEX #90 tab ~09/11/21 montelukast 10 mg tablet See Rx Instructions .ROUTE 09/04/21 09/12/21 1 Day Ago Rx .COMPLEX #90 tab ~09/11/21 Allergies Allergy/AdvReac Type Severity Reaction Status Date / Time carbamazepine [From Tegretol] AdvReac Mild twitches Verified 09/12/21 06:51 Sulfa (Sulfonamide AdvReac Mild made sore Verified 09/12/21 06:51 Antibiotics) worse Current Medications Generic Name Dose Route Start Last Admin Trade Name Freq PRN Reason Stop Dose Admin Sodium Chloride 1,000 mls @ 30 mls/hr 09/12/21 06:30 09/12/21 07:00 Sodium Chloride 0.9% IV 09/13/21 06:29 30 mls/hr .Q24H RAUL Administration PFSH Anesthesia Medical History Abnormal liver function Acute respiratory failure with hypoxia Arthritis Chronic back pain CKD (chronic kidney disease), stage III Contact dermatitis COPD (chronic obstructive pulmonary disease) COVID-19 02/04/2021 with Hospital 02/07 to 02/22/2021 Essential hypertension GERD (gastroesophageal reflux disease) Hyperlipidemia Hypertension Hypothyroidism Morbid obesity MAURY (obstructive sleep apnea) MAURY and COPD overlap syndrome Physical deconditioning Pneumonia due to COVID-19 virus Seasonal allergies Shoulder pain right Surgical History H/O: hysterectomy Partial History of back surgery History of cataract surgery Family History Other Cancer Hypertension MS (multiple sclerosis) Social History Smoking and tobacco status: never smoked Alcohol intake: never Data Anesthesia Cardiac Studies: Echocardiogram 02/15/21 Anesthesia Procedures Nerve Block Nerve Block 1: Main Anesthesia: general anesthesia Time Out Performed: Yes Consent: requested by attending/covering physician, from patient, risks and benefits reviewed and patient agrees to proceed Nerve block location: interscalene (right) Anesthesia monitors applied: pulse oximetry, EKG, BP cuff and oxygen Nerve block position: supine Anesthetic Used: ropivicaine 0.5% Amount of anesthesia used (mL): 30 Ultrasound used to: recognize landmarks and visualize and ID brachial plexus Nerve Stimulator Used?: No Interscalene/Femoral BLK: 2 stimuplex 22 g needle used for position and inplane approach Injection: neg aspiration of heme Patient Tolerated Procedure: well Complications: none
--- NOTE | 2021-09-12 10:04 | P.OP_ITS ---
Operative Report Date of procedure: September 12, 2021 Pre-op diagnosis: Preop Diagnosis Rotator cuff tear, DJD acromioclavicular joint Post-op diagnosis: same Procedure done: Arthroscopic repair right rotator cuff with bio inductive implant, subacromial decompression, distal clavicle excision Implants: Davey and Nephew Regeneten patch Pathology: none sent Surgeon: Arslan Valentine Anesthesia: General Estimated blood loss (mL): 5 Condition: stable Disposition: PACU Procedure: Modesta was taken to the operating room where a interscalene block was provided. She was given a general anesthesia and 2 g of Ancef. She was positioned in the lateral position with the right arm exposed and an axillary roll in place. She was prepped and draped in the usual fashion with the right arm in 15 and later 20 pounds of traction. A posterior portal was made 2 cm inferior and medial to the posterior corner of the acromion. A scope cannula and trocar were placed into the glenohumeral joint. A small working portal was made in the rotator interval. A probe was introduced. The biceps tendon and labrum were inspected and found to be intact. There is minimal chondromalacia over the humeral head and a healthy appearing glenoid. The undersurface the rotator cuff was inspected revealing some partial-thickness tearing in the supraspinatus tendon just posterior to the biceps. A spinal needle was introduced laterally through the tendon marking the area of degeneration. Arthroscopy equipment was then moved to the subacromial space and an anterior and lateral portal where opened. Working through the lateral portal bursal tissue was removed and with the werewolf cautery the leading edge of the a cromion was outlined. 5 5 acromionizer was introduced and approximately 4 mm of anterior and inferior acromion removed. Attention was then focused on the distal clavicle. Working through the anterior portal the Werewolf cautery was used to outline the distal clavicle. The acromionizer was introduced and approximately 8 mm of distal clavicle excised. Attention was then focused on the rotator cuff. The area marked by the spinal needle was identified. Bursal tissue was removed revealing bursal degeneration corresponding to the articular aspect of the cuff but no full-thickness tears were identified. As cuff was not felt to be the source of pain butbiologically of poor quality a decision was made to proceed with tissue augmentation Through a low lateral portal a Davey and Nephew Regeneten patch was introduced. It was laid over the area of poor quality rotator cuff. It was fixed in the 2 medial corners with soft tissue heidi. 2 additional hiedi were applied centrally anteriorly and posteriorly. Finally through the lateral cannula portable to bone heidi were applied. The patch laid down nicely over the cuff. Arthroscopy equipment was removed. Portals are closed with 3-0 Prolene. The patient was placed in a sling. She was extubated and taken to recovery room in stable condition.
[2021-09-12] MEDS: ipratropium-albuterol 3 mL Neb INHALATION (13:13)
--- NOTE | 2021-09-12 14:35 | ANE.PACU2 ---
Inpatient post-anesthesia follow up: Airway intact: Yes Vital signs: Temperature 97.3 F Pulse Rate 110 Respiratory Rate 20 Blood Pressure 140/68 Pulse Oximetry [Qu alifying 92 Sp02 on Oxygen wit h Exercise] Pulse Oximetry [Ro om Air at 84 Rest] Pulse Oximetry 90 Oxygen Delivery Me thod Nasal Cannula Oxygen Flow Rate 3 Fraction of Inspir ed Oxygen Hydration adequate: Yes Nausea and vomiting: No Pain level: 1 Mental status: Baseline Additional Comments: O2 requirements increased, difficult to tell if block related or related to preoperative issue with postCOVID lung dz
== END 2021-09-12 17:04 | disposition home or self-care (01) ==
PROVIDERS: PCP Family Medicine; Visit Provider Orthopaedic Surgery
PROC: (CPT 29805; principal; 2021-09-12 08:00)
PROC: (CPT 29827; 2021-09-12 08:00)
DX: M75.101 Unspecified rotator cuff tear or rupture of right shoulder, not specified as traumatic (principal); Z86.16 Personal history of COVID-19; K21.9 Gastro-esophageal reflux disease without esophagitis; E78.5 Hyperlipidemia, unspecified; E66.01 Morbid (severe) obesity due to excess calories; Z68.42 Body mass index [BMI] 45.0-49.9, adult; M19.90 Unspecified osteoarthritis, unspecified site; I12.9 Hypertensive chronic kidney disease with stage 1 through stage 4 chronic kidney disease, or unspecified chronic kidney disease; N18.30 Chronic kidney disease, stage 3 unspecified; E03.9 Hypothyroidism, unspecified; G47.33 Obstructive sleep apnea (adult) (pediatric)
CPT/HCPCS: 29827; 64415; 76942; 94640; C1713; J0330; J0690; J1100; J2405; J2704; J2795; J3010; J3490; J7030

== ENCOUNTER → 2021-12-05 08:50 | Outpatient (BNVA) | payer MEDICARE, MEDICAID, SELFPAY | PROVIDERS: PCP Family Medicine; Visit Provider Internal Medicine Pulmonary Disease | DX: G47.33 Obstructive sleep apnea (adult) (pediatric) (principal); R06.02 Shortness of breath; J30.2 Other seasonal allergic rhinitis; R06.09 Other forms of dyspnea; U09.9 Post COVID-19 condition, unspecified; K21.9 Gastro-esophageal reflux disease without esophagitis; E03.9 Hypothyroidism, unspecified; N18.30 Chronic kidney disease, stage 3 unspecified | CPT/HCPCS: 82785; 85025; 86003; 99204 ==

== ENCOUNTER → 2021-12-10 13:13 | Outpatient (BNVA) | payer MEDICARE, MEDICAID, SELFPAY | PROVIDERS: PCP Family Medicine; Visit Provider Orthopaedic Surgery | DX: Z98.890 Other specified postprocedural states (principal) | CPT/HCPCS: 99024 ==

== ENCOUNTER → 2022-01-16 13:13 | Outpatient (BNVA) | payer MEDICARE, MEDICAID, SELFPAY | PROVIDERS: PCP Family Medicine; Visit Provider Internal Medicine Pulmonary Disease | DX: J45.909 Unspecified asthma, uncomplicated (principal); R06.09 Other forms of dyspnea; U09.9 Post COVID-19 condition, unspecified; G47.33 Obstructive sleep apnea (adult) (pediatric); K21.9 Gastro-esophageal reflux disease without esophagitis; E66.01 Morbid (severe) obesity due to excess calories; Z68.43 Body mass index [BMI] 50.0-59.9, adult; Z99.81 Dependence on supplemental oxygen | CPT/HCPCS: 71046; 99214 ==

== ENCOUNTER 2022-01-22 09:20 | Outpatient (CLI) | payer MEDICARE, MEDICAID, SELFPAY ==
--- NOTE | 2022-01-22 | ECG_ITS ---
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 Interpretive Statements NAME OF STUDY: DOBUTAMINE SESTAMIBI STRESS TEST INDICATION: Dyspnea on exertion PROCEDURE: At the baseline, the blood pressure was 154/82 mmHg, oxygen saturation 98% with a heart rate of 92 bpm. The electrocardiogram showed normal sinus rhythm, normal axis with normal ST and T's. The dobutamine was infused over a period of 10 minutes 29 seconds. The maximum heart rate obtained was 141 bpm (93% of the maximum predicted heart rate). The blood pressure at that time was 139/60 mmHg. The patient did not have any chest pain or any significant electrocardiogram changes with the dobutamine infusion. The physical examination remained unchanged. No arrhythmias were seen on the monitor. During the recovery phase, the patient did not have any specific symptoms. The blood pressure at the end of the recovery phase was 152/84 mmHg with a heart rate of 93 beats per minute and oxygen saturation of 98%. Isolated frequent PVCs noted in recovery. CONCLUSION: 1. Normal EKG response to dobutamine infusion. Isolated frequent PVCs noted in recovery. 2. Baseline hypertension with normal blood pressure response. 3. Functional status could not be assessed due to pharmacological protocol. 4. Sestamibi/Sestamibi perfusion scan pending; see separate report. Electronically Signed On 01-29-2022 17:18:22 CDT by Tracie Yan M.D. [id number]
[2022-01-22 10:11] VITALS: BMI 51.6
--- NOTE | 2022-01-22 10:14 | NMCV_ITS ---
NM kathya perf SPECT r/s* [id number] Modesta Medel Age: 71 Gender: F : 1950 Exam Date: 01/22/2022 10:14 Ordering Phys: Ozzy Marquez MD Technologist: LYNDSAY Barrett Exam Location: [facility] [place] Indications: SHORTNESS OF BREATH STRESS TEST Please see separate stress test report in [facility] for full findings IMAGE PROTOCOL Rest/Stress 1 Dobutamine Day Radiopharmaceutical Dose (mCi) Administration Site Administered by Rest: Tc-99m 10.2 IV LYNDSAY Yuen Sestamibi Stress:Tc-99m 33.0 IV LYNDSAY Yuen Sestamibi Rest: 22-Jan-2022 60 Discovery 630 Stress: 22-Jan-2022 30 Discovery 630 Radiopharmaceutical was injected at 100% maximum heart rate. Supine position only as patient was unable to lay prone. SPECT RESULTS Technical Quality: Good Raw Data Analysis: Soft tissue attenuation, Breast attenuation Image Corrections: No attenuation or motion correction applied Summed Stress Score: 1 Summed Rest Score: 0 Summed Difference Score: 1 PERFUSION FINDINGS SPECT images demonstrate homogeneous tracer distribution throughout the myocardium. FUNCTIONAL RESULTS (calculated via Gated SPECT) Stress Image LV EF (%): 82 Stress EDV (mL):84 TID: 1.23 Stress ESV (mL):15 FUNCTIONAL FINDINGS: The left ventricle is normal in size. Transient Ischemia Dilatation of 1.2. There is normal left ventricular systolic function. The left ventricular ejection fraction is normal with a value of 82%. There is normal left ventricular wall thickening. IMPRESSIONS 1. Myocardial perfusion imaging is normal. 2. Overall left ventricular systolic function is normal without regional wall motion abnormalities, LVEF=82%. 3. Transient ischemic dilation index mildly increased at 1.2. This may represent hypertensive response/subendocardial ischemia. 4. No EKG changes with dobutamine infusion. Please refer to separate report for details. Tracie Yan MD (Electronically Signed) Final Date: 29 January 2022 17:22 S
[2022-01-22] MEDS: DOBUTtamine 200 MG in sodium chloride 0.9% 34 ML 22 MG IV (12:43)
[2022-01-22 13:19] VITALS: BP 152/84; PULSE 93
== END 2022-01-22 09:21 | disposition home or self-care (01) ==
LOC: CDL 09:21
PROVIDERS: PCP Family Medicine; Visit Provider Internal Medicine Pulmonary Disease
DX: R06.09 Other forms of dyspnea (principal); R06.02 Shortness of breath
CPT/HCPCS: 78452; 93017; A9500; J1250; J7050

== ENCOUNTER → 2022-01-28 15:57 | Outpatient (BNVA) | payer MEDICARE, MEDICAID, SELFPAY | PROVIDERS: PCP Family Medicine; Visit Provider Family Medicine | DX: E78.5 Hyperlipidemia, unspecified (principal); E03.9 Hypothyroidism, unspecified; R60.0 Localized edema | CPT/HCPCS: 80048 ==

== ENCOUNTER → 2022-05-22 14:37 | Outpatient (BNVA) | payer MEDICARE, MEDICAID, SELFPAY | PROVIDERS: PCP Family Medicine; Visit Provider Family Medicine | DX: E03.9 Hypothyroidism, unspecified (principal) | CPT/HCPCS: 84439; 84443 ==

== ENCOUNTER → 2022-09-11 11:09 | Outpatient (BNVA) | payer MEDICARE, MEDICAID, SELFPAY | PROVIDERS: PCP Family Medicine; Visit Provider Registered Nurse Neonatal Intensive Care | DX: S49.90XA Unspecified injury of shoulder and upper arm, unspecified arm, initial encounter (principal); X58.XXXA Exposure to other specified factors, initial encounter | CPT/HCPCS: 73080; 73090 ==

== ENCOUNTER → 2022-11-21 12:40 | Outpatient (BNVA) | payer MEDICARE, MEDICAID, SELFPAY | PROVIDERS: PCP Family Medicine; Visit Provider Family Medicine | DX: I10 Essential (primary) hypertension (principal); E03.9 Hypothyroidism, unspecified | CPT/HCPCS: 80053; 80061; 84443; 85025 ==

== ENCOUNTER → 2023-06-11 14:35 | Outpatient (BNVA) | payer MEDICARE, MEDICAID, SELFPAY | PROVIDERS: PCP Family Medicine; Visit Provider Family Medicine | DX: I10 Essential (primary) hypertension (principal); Z13.6 Encounter for screening for cardiovascular disorders; E03.9 Hypothyroidism, unspecified | CPT/HCPCS: 80053; 84443 ==

== ENCOUNTER → 2023-08-31 10:45 | Outpatient (BNVA) | payer MEDICARE, MEDICAID, SELFPAY | PROVIDERS: PCP Family Medicine; Visit Provider Family Medicine | DX: I10 Essential (primary) hypertension (principal); E11.9 Type 2 diabetes mellitus without complications; Z13.6 Encounter for screening for cardiovascular disorders | CPT/HCPCS: 80053; 80061; 82043; 82306; 82977; 84443; 85025 ==

== ENCOUNTER 2023-09-02 09:36 | Outpatient (CLI) | payer MEDICARE, MEDICAID, SELFPAY ==
[2023-09-02 11:32] LABS: Calcium 9.3 mg/dL (8.5-10.5)
[2023-09-02 11:34] LABS: Parathyroid Hormone 105.4 pg/mL (15-65)
== END 2023-09-02 09:37 | disposition home or self-care (01) ==
LOC: LAB 09:38
PROVIDERS: PCP Family Medicine; Visit Provider Family Medicine
DX: R74.8 Abnormal levels of other serum enzymes (principal)
CPT/HCPCS: 36415; 82310; 83970

== ENCOUNTER 2023-09-25 07:47 | Outpatient (CLI) | payer MEDICARE, MEDICAID, SELFPAY ==
--- NOTE | 2023-09-25 08:00 | NM_ITS ---
WS: [id number] NUCLEAR MEDICINE WHOLE BODY BONE SCAN HISTORY: elevated alk. phos and PTH COMPARISON: Shoulder radiograph 03/21/2021 TECHNIQUE: The patient was injected with 24.1 mCi of Technetium 99m HDP and serial whole-body scintig bianca have been performed with anterior and posterior images. Moderate increased uptake involving the knee joints and patellofemoral joints and shoulder joints. Th e distribution suggests osteoarthritis. Additional RIGHT mid tarsal arthritis. There are no focal are as within the spine or ribs that suggest metastatic disease. Normal soft tissue uptake. Normal renal uptake. IMPRESSION: 1. No evidence for metastatic bone disease by bone scan imaging. 2. There are focal areas of symmetric uptake within the skeleton related to the shoulder joints and knee joints which are most likely due to osteoarthritis.
== END 2023-09-25 07:48 | disposition home or self-care (01) ==
PROVIDERS: PCP Family Medicine; Visit Provider Family Medicine
DX: R74.8 Abnormal levels of other serum enzymes (principal); R79.89 Other specified abnormal findings of blood chemistry
CPT/HCPCS: 78306; A9561

== ENCOUNTER 2023-12-23 06:00 | Outpatient (CLI) | payer MEDICARE, MEDICAID, SELFPAY | END 2023-12-23 06:01 | disposition home or self-care (01) | LOC: RAD 02-21 07:56 | PROVIDERS: PCP Family Medicine; Visit Provider Family Medicine | DX: E55.9 Vitamin D deficiency, unspecified (principal); R06.09 Other forms of dyspnea; J44.9 Chronic obstructive pulmonary disease, unspecified | CPT/HCPCS: 80053; 82306; 84439; 84443 ==

== ENCOUNTER 2024-01-06 14:39 | Outpatient (CLI) | payer MEDICARE, MEDICAID, SELFPAY ==
--- NOTE | 2024-01-06 15:00 | USCV_ITS ---
Modesta Medel Age: 73 Gender: F : 1950 Exam Date: 01/06/2024 15:20 Ordering Phys: Magdaleno Hitchcock MD Technologist: CT Exam Location: [facility] [place]_ Indication: cp/sob BP: 128 / 74 HR: 75 Rhythm: Sinus Technical Quality: Poor because of body habitus MEASUREMENTS (Male / Female) Normal Values 2D ECHO LVOT Diameter 2.0 cm LV Ejection Fraction MOD 4C 59.7 % LV Ejection Fraction MOD 2C 42.6 % LV Ejection Fraction 2C AL 44.0 % LA Diameter 3.8 cm RA Systolic Volume 4C AL 29.9 ml RA Systolic Volume 4C MOD 29.2 ml LA Sys Volume AL 49.6 cm cubed LA Sys Volume Index AL 17.5 cm cubed/m squared Aorta at Sinotubular Diameter 2.0 cm DOPPLER AV Peak Velocity 163.0 cm/s LVOT Peak Velocity 136.0 cm/s AV Area Cont Eq vti 3.1 cm squared AV Area Cont Eq pk 2.7 cm squared MV Peak Velocity 79.0 cm/s MV Area PHT 2.4 cm squared Mitral E to A Ratio 0.7 TV Peak E Velocity 56.0 cm/s Right Atrial Pressure 3.0 mmHg PV Peak Velocity 115.5 cm/s FINDINGS Left Ventricle Normal left ventricular size and systolic function, EF 70% .no regional wall motion abnormalities. Grade I/IV diastolic dysfunction (abnormal relaxation filling pattern), normal to mildly elevated filling pressures. Right Ventricle The right ventricle is normal in size and function. Right Atrium The right atrium is normal in size. Left Atrium The left atrium is normal in size. Mitral Valve No gross abnormalities noted Aortic Valve No gross abnormalities noted Tricuspid Valve No gross abnormalities noted Pulmonic Valve Pulmonic valve not well visualized. Pericardium Small echo-free space in the anterolateral region suggesting pericardial effusion. Aorta Normal ascending aorta dimension. IVC Inferior vena cava not visualized. CONCLUSIONS Normal left ventricular size and systolic function, EF 70% .no regional wall motion abnormalities. Grade I/IV diastolic dysfunction (abnormal relaxation filling pattern), normal to mildly elevated filling pressures. Normal cardiac chamber sizes. No significant stenotic or regurgitant lesions Possible small pericardial effusion Compared to the study from 02/15/2021, the pericardial effusion appears to be new. Dr Mati John MD FACC (Electronically Signed) Final Date: 06 January 2024 17:56 S
== END 2024-01-06 14:40 | disposition home or self-care (01) ==
LOC: RAD 14:39
PROVIDERS: PCP Family Medicine; Visit Provider Family Medicine
DX: R06.09 Other forms of dyspnea (principal)
CPT/HCPCS: 93306

== ENCOUNTER 2024-01-21 09:50 | Outpatient (CLI) | payer MEDICARE, MEDICAID, SELFPAY ==
--- NOTE | 2024-01-21 10:00 | MM_ITS ---
WS: [id number] BILATERAL 3D TOMOSYNTHESIS DIGITAL DIAGNOSTIC MAMMOGRAPHY WITH CAD CLINICAL INFORMATION: breast mass HISTORY: LEFT breast lump COMPARISON: None available TECHNIQUE: Bilateral CC, MLO, and ML views. FINDINGS: The breasts are composed of heterogeneous fibroglandular density, which can limit the detection of sm all underlying mass lesions. Heterogeneous spiculated irregular mass deep to the palpable marker suspicious for neoplasm measuring 5.1 x 2.2 cm with suspected surrounding parenchymal invasion extending to the LEFT nipple. Diffuse s kin thickening LEFT breast with nipple retraction. Additional dense tissue upper outer LEFT breast wi th trabecular thickening throughout the LEFT breast. Ultrasound is pending. Enlarged LEFT axillary ly mph node. Vascular calcification. RIGHT breast appears unremarkable. ULTRASOUND BREAST LEFT TECHNIQUE: Ultrasound left breast focused area of concern. CLINICAL INFORMATION: breast mass FINDINGS: Ultrasound LEFT breast in the area of concern. Large irregular hypoechoic spiculated mass compatible with neoplasm measuring approximately 4.4 x 3.2 x 3.4 cm. This extends to the nipple approximately 6- 7 cm in total length. Suspected surrounding parenchymal invasion on the mammogram. Dominant LEFT [address] mass at the 9 o'clock position approximately 6 cm from the nipple Multiple enlarged suspected metastatic lymph nodes in the LEFT axilla with loss of the normal fatty h bernardo and diffuse cortical thickening. Largest lymph node measures approximately 3.0 x 2.1 cm. Ultrasound upper outer quadrant demonstrates no focal mass, although diffuse trabecular thickening on the mammogram is suspicious in appearance MM/[place] [id number] IMPRESSION: BI-RADS: 5-Highly Suggestive of Malignancy FOLLOW UP: US Guided Biopsy Recommended Ultrasound-guided biopsy of the large breast mass and largest suspicious lymph node Diffuse skin thickening on the mammogram with nipple retraction suspicious for inflammatory breast carcinoma. Diffuse trabecular thickening LEFT breast suspic ious for surrounding invasive disease. Recommend further evaluation with breast MRI to better evaluate for diffuse parenchymal invasion throughout the LEFT br east
--- NOTE | 2024-01-21 10:30 | US_ITS ---
WS: [id number] BILATERAL 3D TOMOSYNTHESIS DIGITAL DIAGNOSTIC MAMMOGRAPHY WITH CAD CLINICAL INFORMATION: breast mass HISTORY: LEFT breast lump COMPARISON: None available TECHNIQUE: Bilateral CC, MLO, and ML views. FINDINGS: The breasts are composed of heterogeneous fibroglandular density, which can limit the detection of sm all underlying mass lesions. Heterogeneous spiculated irregular mass deep to the palpable marker suspicious for neoplasm measuring 5.1 x 2.2 cm with suspected surrounding parenchymal invasion extending to the LEFT nipple. Diffuse s kin thickening LEFT breast with nipple retraction. Additional dense tissue upper outer LEFT breast wi th trabecular thickening throughout the LEFT breast. Ultrasound is pending. Enlarged LEFT axillary ly mph node. Vascular calcification. RIGHT breast appears unremarkable. ULTRASOUND BREAST LEFT TECHNIQUE: Ultrasound left breast focused area of concern. CLINICAL INFORMATION: breast mass FINDINGS: Ultrasound LEFT breast in the area of concern. Large irregular hypoechoic spiculated mass compatible with neoplasm measuring approximately 4.4 x 3.2 x 3.4 cm. This extends to the nipple approximately 6- 7 cm in total length. Suspected surrounding parenchymal invasion on the mammogram. Dominant LEFT h[address] mass at the 9 o'clock position approximately 6 cm from the nipple Multiple enlarged suspected metastatic lymph nodes in the LEFT axilla with loss of the normal fatty h bernardo and diffuse cortical thickening. Largest lymph node measures approximately 3.0 x 2.1 cm. Ultrasound upper outer quadrant demonstrates no focal mass, although diffuse trabecular thickening on the mammogram is suspicious in appearance US/US breast LT limited* [id number] IMPRESSION: BI-RADS: 5-Highly Suggestive of Malignancy FOLLOW UP: US Guided Biopsy Recommended Ultrasound-guided biopsy of the large breast mass and largest suspicious lymph node Diffuse skin thickening on the mammogram with nipple retraction suspicious for inflammatory breast carcinoma. Diffuse trabecular thickening LEFT breast suspic ious for surrounding invasive disease. Recommend further evaluation with breast MRI to better evaluate for diffuse parenchymal invasion throughout the LEFT br east
== END 2024-01-21 09:51 | disposition home or self-care (01) ==
LOC: RAD 09:51
PROVIDERS: PCP Family Medicine; Visit Provider Family Medicine
DX: N63.22 Unspecified lump in the left breast, upper inner quadrant (principal); R92.333 Mammographic heterogeneous density, bilateral breasts; R92.1 Mammographic calcification found on diagnostic imaging of breast; R59.0 Localized enlarged lymph nodes; N64.59 Other signs and symptoms in breast
CPT/HCPCS: 76642; 77062; G0279

== ENCOUNTER 2024-02-03 12:03 | Outpatient (CLI) | payer MEDICARE, MEDICAID, SELFPAY | END 2024-02-03 12:04 | disposition home or self-care (01) | LOC: RAD 12:03 | PROVIDERS: PCP Family Medicine; Visit Provider Family Medicine | DX: N63.20 Unspecified lump in the left breast, unspecified quadrant (principal) | CPT/HCPCS: 19083; 38505; 76942; 88305 ==

== ENCOUNTER 2024-02-16 12:07 | Outpatient (CLI) | payer MEDICARE, MEDICAID, SELFPAY ==
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
== END 2024-02-16 12:08 | disposition home or self-care (01) ==
LOC: RAD 12:08
PROVIDERS: PCP Family Medicine; Visit Provider Family Medicine
DX: C50.912 Malignant neoplasm of unspecified site of left female breast (principal); N28.1 Cyst of kidney, acquired; R93.3 Abnormal findings on diagnostic imaging of other parts of digestive tract; Z90.710 Acquired absence of both cervix and uterus; R59.0 Localized enlarged lymph nodes; R93.89 Abnormal findings on diagnostic imaging of other specified body structures
CPT/HCPCS: 78815; A9552

== ENCOUNTER 2024-02-25 07:19 | Oncology outpatient (recurring) (ONCR) | payer MEDICARE, MEDICAID, SELFPAY | END 2024-03-14 23:59 | disposition home or self-care (01) | PROVIDERS: PCP Family Medicine; Visit Provider Internal Medicine Medical Oncology | DX: C50.812 Malignant neoplasm of overlapping sites of left female breast (principal); Z17.1 Estrogen receptor negative status [ER-]; F32.A Depression, unspecified | CPT/HCPCS: 99205 ==

== ENCOUNTER → 2024-02-26 10:25 | Outpatient (BNVA) | payer MEDICARE, MEDICAID, SELFPAY | PROVIDERS: PCP Family Medicine; Referring Provider Internal Medicine Medical Oncology; Visit Provider Student in an Organized Health Care Education/Training Program | DX: Z95.828 Presence of other vascular implants and grafts (principal); C50.919 Malignant neoplasm of unspecified site of unspecified female breast | CPT/HCPCS: 99204 ==

== ENCOUNTER → 2024-03-14 09:58 | Outpatient (BNVA) | payer MEDICARE, MEDICAID, SELFPAY | PROVIDERS: PCP Family Medicine; Referring Provider Student in an Organized Health Care Education/Training Program; Visit Provider Student in an Organized Health Care Education/Training Program | DX: C50.812 Malignant neoplasm of overlapping sites of left female breast (principal) | CPT/HCPCS: 99214 ==

== ENCOUNTER 2024-05-26 12:59 | Emergency (ER) | payer MEDICARE, MEDICAID, SELFPAY ==
[2024-05-26 13:04] VITALS: BP 158/82; PULSE 91; TEMP 37.5; O2SAT 92; BMI 56.5
--- NOTE | 2024-05-26 15:25 | XR_ITS ---
WS: [id number] Exam: [place] [id number] Date/Time of Exam: 05/26/2024 3:33 PM Reason For Exam: fall No humeral fracture noted. Soft tissues are unremarkable. XR/[place] [id number] IMPRESSION: 1. No fracture identified.
--- NOTE | 2024-05-26 15:25 | XRR_ITS ---
PROCEDURE INFORMATION: Exam: XR Left Elbow Exam date and time: 05/26/2024 3:41 PM Age: 73 years old Clinical indication: Injury or trauma; Fall; Blunt trauma (contusions or hematomas); Elbow; Left; Additional info: Trauma/fall TECHNIQUE: Imaging protocol: Radiologic exam of the left elbow. Views: 3 or more views. COMPARISON: NM bone scan whole body* [id number] 09/25/2023 8:00 AM FINDINGS: Bones/joints: Normal. Soft tissues: Normal. XR/XR elbow LT min 3V* [id number] IMPRESSION: No acute findings.
--- NOTE | 2024-05-26 15:25 | XRR_ITS ---
PROCEDURE INFORMATION: Exam: XR Left Shoulder Exam date and time: 05/26/2024 3:37 PM Age: 73 years old Clinical indication: Injury or trauma; Fall; Blunt trauma (contusions or hematomas); Shoulder; Left; Additional info: Trauma/fall TECHNIQUE: Imaging protocol: Radiologic exam of the left shoulder. Views: 2 or more views. COMPARISON: NM bone scan whole body* [id number] 09/25/2023 8:00 AM FINDINGS: Bones/joints: Normal. Soft tissues: Normal. XR/XR shoulder LT min 2V* [id number] IMPRESSION: No acute findings.
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
[2024-05-26 15:46] VITALS: RESP 20; O2SAT 97
[2024-05-26] MEDS: morphine 4 mg/mL SDV 1 mL IM (15:46)
[2024-05-26 15:47] VITALS: PULSE 78; O2SAT 97
[2024-05-26 16:40] VITALS: BP 133/89; PULSE 82; RESP 24; O2SAT 96
== END 2024-05-26 16:42 | disposition home or self-care (01) ==
PROVIDERS: Emergency Provider Physician Assistant; PCP Family Medicine
DX: S49.92XA Unspecified injury of left shoulder and upper arm, initial encounter (principal); W19.XXXA Unspecified fall, initial encounter; I12.9 Hypertensive chronic kidney disease with stage 1 through stage 4 chronic kidney disease, or unspecified chronic kidney disease; N18.30 Chronic kidney disease, stage 3 unspecified; J44.9 Chronic obstructive pulmonary disease, unspecified; Z85.3 Personal history of malignant neoplasm of breast; E78.5 Hyperlipidemia, unspecified
CPT/HCPCS: 73030; 73060; 73080; 96372; 99284; J2270

== ENCOUNTER 2024-08-03 01:44 | Emergency (ER) | payer MEDICARE, MEDICAID, SELFPAY ==
[2024-08-03 01:45] VITALS: BP 172/79; PULSE 90; RESP 20; TEMP 36.6; O2SAT 98; BMI 52.2
--- NOTE | 2024-08-03 01:47 | ECG_ITS ---
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
--- NOTE | 2024-08-03 01:48 | XRR_ITS ---
PROCEDURE INFORMATION: Exam: XR Chest Exam date and time: 08/03/2024 1:52 AM Age: 74 years old Clinical indication: Other: Weakness TECHNIQUE: Imaging protocol: Radiologic exam of the chest. Views: 1 view. COMPARISON: CR XR chest 2V* [id number] 01/16/2022 2:40 PM FINDINGS: Lungs: Unremarkable. No consolidation. Pleural spaces: Unremarkable. No pleural effusion. No pneumothorax. Heart/Mediastinum: Unremarkable. No cardiomegaly. Bones/joints: Old right-sided rib fractures present. XR/XR chest 1V portable [id number] IMPRESSION: No acute findings.
--- NOTE | 2024-08-03 01:49 | ECG_ITS ---
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 Measurements Intervals [place] Rate: 87 P: 55 DE: 160 QRS: 49 QRSD: 82 T: 47 QT: 331 QTc: 399 Interpretive Statements SINUS RHYTHM LOW QRS VOLTAGE IN PRECORDIAL LEADS [QRS DEFLECTION < 1.0 mV IN CHEST LEADS] Compared to ECG 02/07/2021 09:22:25 Sinus tachycardia no longer present Electronically Signed On 08-04-2024 17:53:59 [employer] by Evreett Marshall M.D. [id number]
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
[2024-08-03 01:51] VITALS: BP 172/79; PULSE 90; RESP 20; O2SAT 98
[2024-08-03 02:16] LABS: Bilirubin Urine Negative (Negative); Blood Urine Negative (Negative); Glucose Urine UA Negative (Normal); Ketones Urine Negative (Negative); Leukocyte Esterase Urine Trace (Negative); Nitrate Urine Negative (Negative); Protein Urine Negative (Negative); Specific Gravity, Urine 1.015 (1.005-1.030); Urine Appearance Clear (CLEAR); Urine Color Yellow (Yellow)
[2024-08-03 02:30] LABS: Add Urine Microscopic? YES; Hyaline Casts Urine 0-4 /lpf; UA Manual Slide Review YES; WBC Urine 0-4 /hpf (0-5)
[2024-08-03 02:33] LABS: Basophils # 0.1 10^3/uL (0.0-0.1); Basophils % 0.8 %; Eosinophils # 0.1 10^3/uL (0.0-0.8); Eosinophils % 1.9 %; Hematocrit 38.7 % (36-47); Lymphocytes # 1.2 10^3/uL (0.8-4.8); Lymphocytes % 16.3 %; Mean Corpuscular HGB Conc 30.7 g/dL (30-55); Mean Corpuscular Hemoglobin 27.3 pg (27-33); Mean Corpuscular Volume 88.8 fl (85-98); Mean Platelet Volume 10.9 fL (7.4-10.4); Monocytes # 0.9 10^3/uL (0.2-0.9); Monocytes % 11.9 %; Neutrophils # 5.19 10^3/uL (1.8-7.7); Neutrophils % 68.8 %; Nucleated Red Blood Cells % 0 %; Platelet Count 242 10^3/cmm (157-399); Red Blood Count 4.36 10^6/uL (3.85-5.65); Red Cell Distribution Width 14.4 % (12.1-15.1); White Blood Count 7.54 10^3/uL (3.29-11.43)
[2024-08-03 02:41] VITALS: BP 134/73; PULSE 91; RESP 17; O2SAT 98
[2024-08-03 02:45] LABS: Troponin(5th) Baseline 16 ng/L (0-10)
[2024-08-03 02:47] LABS: Alanine Aminotransferase 73 U/L (0-33); Albumin Level 3.6 g/dL (3.5-5.2); Alkaline Phosphatase 402 U/L (35-105); Aspartate Amino Transferase 152 U/L (0-32); Blood Urea Nitrogen 28 mg/dL (8-23); Calcium 8.9 mg/dL (8.5-10.5); Carbon Dioxide 26 mmol/L (22-29); Chloride 98 mmol/L (98-107); Creatinine Clr Calc Pharmacy 44.5615; Globulin 2.8 g/dL (1.3-4.6); Glucose 119 mg/dL (65-115); Magnesium 2.2 mg/dL (1.7-2.3); Osmolality Calculated 295 mOsm/kg (285-295); Sodium 139 mmol/L (136-145); Total Bilirubin 0.7 mg/dL (0.15-1.2); Total Protein 6.4 g/dL (6.6-8.7)
[2024-08-03 02:56] LABS: Anion Gap 19.3 (5-19); Potassium 4.3 mmol/L (3.5-5.1)
[2024-08-03 02:57] VITALS: RESP 15; O2SAT 94
[2024-08-03] MEDS: morphine IR 15 mg Tablet 30 MG PO (02:57)
[2024-08-03 03:01] LABS: Influenza A NEGATIVE (Negative); Influenza B NEGATIVE (Negative); Respiratory Syncytial Virus Ce NEGATIVE (Negative); SARS-CoV-2 PCR NEGATIVE (Negative)
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
== END 2024-08-03 04:09 | disposition home or self-care (01) ==
PROVIDERS: Emergency Provider Emergency Medicine; PCP Family Medicine
DX: R53.1 Weakness (principal); N17.9 Acute kidney failure, unspecified; R74.01 Elevation of levels of liver transaminase levels; C50.812 Malignant neoplasm of overlapping sites of left female breast; Z11.52 Encounter for screening for COVID-19; J44.9 Chronic obstructive pulmonary disease, unspecified; I12.9 Hypertensive chronic kidney disease with stage 1 through stage 4 chronic kidney disease, or unspecified chronic kidney disease; N18.9 Chronic kidney disease, unspecified
CPT/HCPCS: 71045; 80053; 81001; 83735; 84484; 85025; 87637; 93005; 99285

== ENCOUNTER 2024-08-05 05:45 | Emergency (ER) | payer MEDICARE, MEDICAID, SELFPAY ==
[2024-08-05 05:47] VITALS: BP 158/81; PULSE 111; RESP 22; TEMP 37; O2SAT 93; BMI 48.4
--- NOTE | 2024-08-05 05:52 | XRR_ITS ---
PROCEDURE INFORMATION: Exam: XR Chest Exam date and time: 08/05/2024 6:03 AM Age: 74 years old Clinical indication: Cough and dyspnea; Additional info: Dyspnea/cough TECHNIQUE: Imaging protocol: Radiologic exam of the chest. Views: 1 view. COMPARISON: CR (CHEST, ) 08/03/2024 1:52 AM FINDINGS: Lungs: Hypoventilatory changes. Decreased pulmonary vascular markings. Increased pulmonary vascular indistinctness. Basilar infiltrates are seen. Pleural spaces: Unremarkable. No pleural effusion. No pneumothorax. Heart/Mediastinum: Unremarkable. No cardiomegaly. Diaphragm: Right diaphragm eventration. Bones/joints: Unremarkable. Other findings: Multiple radiodensities are seen over the left chest wall, similar to prior comparison. XR/XR chest 1V portable [id number] IMPRESSION: Findings which can be seen in CHF, difficult to exclude superimposed infection. Correlate clinically.
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
--- NOTE | 2024-08-05 06:10 | ECG_ITS ---
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
[2024-08-05 06:11] LABS: Add Urine Microscopic? NO
[2024-08-05 06:15] LABS: Bilirubin Urine Negative (Negative); Blood Urine Negative (Negative); Glucose Urine UA Negative (Normal); Ketones Urine Negative (Negative); Leukocyte Esterase Urine Negative (Negative); Nitrate Urine Negative (Negative); Protein Urine Negative (Negative); Urine Appearance Clear (CLEAR); Urine Color Yellow (Yellow)
[2024-08-05] MEDS: prochlorperazine 10 mg/2 mL Inj IM (06:34)
[2024-08-05] MEDS: HYDROMORPHONE HCL 0.5 MG/0.5 ML INJ SUBCUT (06:48)
[2024-08-05 07:00] VITALS: BP 148/113; PULSE 112; RESP 20; O2SAT 92
[2024-08-05 07:04] LABS: Charge for UA Resulting for Rev
--- NOTE | 2024-08-05 08:08 | PC.PHAR ---
patient going home with hospice, medications/med list more than likely will change
[2024-08-05] MEDS: HYDROMORPHONE HCL 0.5 MG/0.5 ML INJ IVP (17:29)
== END 2024-08-05 17:30 | disposition home or self-care (01) ==
PROVIDERS: Emergency Provider Family Medicine; PCP Family Medicine
DX: G89.3 Neoplasm related pain (acute) (chronic) (principal); R53.1 Weakness; C50.912 Malignant neoplasm of unspecified site of left female breast; I12.9 Hypertensive chronic kidney disease with stage 1 through stage 4 chronic kidney disease, or unspecified chronic kidney disease; N18.9 Chronic kidney disease, unspecified; J44.9 Chronic obstructive pulmonary disease, unspecified
CPT/HCPCS: 71045; 81003; 93005; 96372; 96374; 99285; J0780; J1171

== ENCOUNTER 2024-08-06 09:49 | Emergency (ER) | payer MEDICARE, MEDICAID, SELFPAY ==
[2024-08-06 09:53] VITALS: BP 177/77; PULSE 90; TEMP 36.5; O2SAT 92; BMI 53.4
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
[2024-08-06 10:40] LABS: Bilirubin Urine Negative (Negative); Blood Urine Negative (Negative); Glucose Urine UA Negative (Normal); Ketones Urine 1+ (Negative); Leukocyte Esterase Urine Negative (Negative); Nitrate Urine Negative (Negative); Protein Urine Negative (Negative); Urine Appearance Clear (CLEAR); Urine Color Yellow (Yellow); pH Urine 5.5 (5-7)
[2024-08-06 10:50] LABS: Influenza A NEGATIVE (Negative); Influenza B NEGATIVE (Negative); Respiratory Syncytial Virus Ce NEGATIVE (Negative); SARS-CoV-2 PCR NEGATIVE (Negative)
[2024-08-06 10:54] LABS: Bacteria Urine TRACE /hpf; UA Manual Slide Review YES; UA Slide Review UA Slide Review Perf; WBC Urine 0-4 /hpf (0-5)
[2024-08-06 10:55] LABS: Squamous Epithelial Cell Urine 0-4 /hpf (0-5)
[2024-08-06 11:20] LABS: Basophils # 0.1 10^3/uL (0.0-0.1); Basophils % 0.5 %; Hematocrit 41.2 % (36-47); Lymphocytes # 0.7 10^3/uL (0.8-4.8); Lymphocytes % 6.5 %; Mean Corpuscular HGB Conc 31.3 g/dL (30-55); Mean Corpuscular Hemoglobin 28.2 pg (27-33); Mean Platelet Volume 10.5 fL (7.4-10.4); Monocytes # 0.8 10^3/uL (0.2-0.9); Monocytes % 7.8 %; Neutrophils # 8.46 10^3/uL (1.8-7.7); Neutrophils % 84.5 %; Nucleated Red Blood Cells % 0 %; Platelet Count 252 10^3/cmm (157-399); Red Blood Count 4.58 10^6/uL (3.85-5.65); Red Cell Distribution Width 14.9 % (12.1-15.1); White Blood Count 10.01 10^3/uL (3.29-11.43)
[2024-08-06 11:37] VITALS: BP 177/77; PULSE 110; O2SAT 97
[2024-08-06 11:40] LABS: Alanine Aminotransferase 79 U/L (0-33); Albumin Level 3.4 g/dL (3.5-5.2); Alkaline Phosphatase 417 U/L (35-105); Anion Gap 16.4 (5-19); Aspartate Amino Transferase 159 U/L (0-32); Blood Urea Nitrogen 23 mg/dL (8-23); C Reactive Protein 174.3 mg/L (0.0-4.9); Calcium 9.4 mg/dL (8.5-10.5); Carbon Dioxide 27 mmol/L (22-29); Chloride 101 mmol/L (98-107); Creatinine Clr Calc Pharmacy 63.9784; Globulin 3.6 g/dL (1.3-4.6); Glucose 98 mg/dL (65-115); Lipase 8 U/L (13-60); Osmolality Calculated 294 mOsm/kg (285-295); Potassium 4.4 mmol/L (3.5-5.1); Sodium 140 mmol/L (136-145); Total Bilirubin 1.6 mg/dL (0.15-1.2)
[2024-08-06 11:42] LABS: Lactic Sepsis W/Reflex 2.1 mmol/L (0.5-2.2)
--- NOTE | 2024-08-06 11:51 | CTR_ITS ---
PROCEDURE INFORMATION: Exam: CT Abdomen And Pelvis With Contrast Exam date and time: 08/06/2024 12:19 PM Age: 74 years old Clinical indication: Abdominal pain TECHNIQUE: Imaging protocol: Computed tomography of the abdomen and pelvis with contrast. Radiation optimization: All CT scans at this facility use at least one of these dose optimization techniques: automated exposure control; mA and/or kV adjustment per patient size (includes targeted exams where dose is matched to clinical indication); or iterative reconstruction. Contrast material: OMNI 350; Contrast volume: 100 ml; Contrast route: INTRAVENOUS (IV); COMPARISON: PT PET skull to thigh INIT [id number] 02/16/2024 1:34 PM RADIATION DOSE METRICS: Total DLP (mGy-cm): 1445.04 FINDINGS: Lungs: Subpleural reticulations throughout the bilateral lung bases. 1.0 cm pleural solid nodule at the left lung base (series 4, image 6). Liver: Multiple hypodense masses of the liver largest of which measure 4.4 cm of the right hepatic lobe and 6.9 cm at the hepatic dome. Hepatic steatosis. Gallbladder and biliary ducts: Mild gallbladder wall thickening. No distinct pericholecystic fluid or inflammatory change. No CT findings of cholelithiasis or sludge. Pancreas: Pancreatic atrophy. Spleen: No splenomegaly. Adrenal glands: No mass. Kidneys and ureters: Subcentimeter hypodense foci of the bilateral kidneys largest of which is exophytic and measures 1.4 cm at the posterior right renal midpole measuring 30 Hounsfield units. Stomach and bowel: Colonic diverticulosis without diverticulitis. Appendix: Appendix is not visualized. Intraperitoneal space: Unremarkable. No free air. No significant fluid collection. Vasculature: Unremarkable. No abdominal aortic aneurysm. Lymph nodes: Unremarkable. No enlarged lymph nodes. Urinary bladder: Unremarkable as visualized. Reproductive: Hysterectomy. Bones/joints: Unremarkable. No acute fracture. Soft tissues: Diffuse left breast mass with skin thickening. Hyperdense foci of the left chest wall. Other findings: Scant fluid within the pelvis. CT/CT abdomen pelvis w con* [id number] IMPRESSION: 1. Multiple hypodense masses of the liver in the setting of known left breast cancer is concerning for metastatic disease. Recommend MRI of the liver with and without contrast. 2. Nonspecific gallbladder wall thickening which is likely secondary to liver disease as described above. No discrete CT findings of cholecystitis. 3. Pleural-based solid nodule at the left lung base measuring [address] chest at three months or can be followed up with PET-CT per Fleischner criteria. 4. Scant fluid within the pelvis.
[2024-08-06] MEDS: ondansetron 2 mg/ML SDV 2 mL 8 MG IVP (12:12)
[2024-08-06 12:15] VITALS: RESP 18
[2024-08-06] MEDS: sodium chloride 0.9% 1,000 ML 999 ML IV (12:15)
[2024-08-06] MEDS: morphine 4 mg/mL SDV 1 mL IVP (12:15)
[2024-08-06] MEDS: iohexol 350 mg/mL 500 mL Btl (per mL) IV (12:26)
[2024-08-06 13:01] LABS: Reflex Lactate Order REFLEX LACTIC ORDERD
[2024-08-06 14:35] VITALS: RESP 18
[2024-08-06] MEDS: morphine 4 mg/mL SDV 1 mL 6 MG IVP (14:35)
[2024-08-06 14:38] VITALS: BP 161/81; PULSE 104; O2SAT 96
[2024-08-06 18:07] VITALS: BP 145/88; PULSE 103; O2SAT 98
== END 2024-08-06 18:08 | disposition home or self-care (01) ==
PROVIDERS: Emergency Provider Emergency Medicine; PCP Family Medicine
DX: R10.9 Unspecified abdominal pain (principal); C78.7 Secondary malignant neoplasm of liver and intrahepatic bile duct; E86.0 Dehydration; Z51.5 Encounter for palliative care; Z11.52 Encounter for screening for COVID-19; J44.9 Chronic obstructive pulmonary disease, unspecified; I12.9 Hypertensive chronic kidney disease with stage 1 through stage 4 chronic kidney disease, or unspecified chronic kidney disease; N18.9 Chronic kidney disease, unspecified; Z85.3 Personal history of malignant neoplasm of breast
CPT/HCPCS: 36415; 74177; 80053; 81001; 83605; 83690; 85025; 86140; 87040; 87637; 96361; 96374; 96375; 96376; 99285; J2270; J2405; J7030